=== PATIENT | male | born 1965 | race Caucasian/White ===

== ENCOUNTER 2020-01-05 18:07 | Emergency (ER) | payer OTHER, SELFPAY ==
--- NOTE | ~2020-01-05 | CT_ITS ---
EXAMINATION: CT abdomen pelvis w con INDICATION: Abdominal pain TECHNIQUE: Computed tomographic images of the abdomen and pelvis were obtained after the administrati on of 100 cc of Omnipaque 350 intravenous contrast. The dose-length product (DLP) was 455.61 mGy-cm. Automated exposure control and iterative reconstruction technique were employed. COMPARISON: 06/13/2018 FINDINGS: Minimal dependent atelectasis is present in the lung bases. The heart size is normal. The l iver is diffusely low in attenuation when compared with the spleen, consistent with hepatic steatosis . The spleen, pancreas, gallbladder, and adrenal glands are normal. The kidneys are unremarkable. No pathologically enlarged abdominal or pelvic lymph nodes are identified. There is calcified atheroscle rosis of the aorta and many of the other arteries. There is no free intraperitoneal gas or evidence o f bowel obstruction. Colonic diverticulosis is present without evidence of diverticulitis. Neurostimu lator devices are implanted in the posterior subcutaneous tissues of the left flank in the anterior a bdominal wall on the right. There are changes of posterior fusion procedure from L3 through L5. IMPRESSION: 1. Diverticulosis without evidence of diverticulitis. Reviewed, dictated and finalized at location A. NG TEACHER
[2020-01-05 18:35] VITALS: BP 106/64; PULSE 88; RESP 16; TEMP 36.5; O2SAT 98
[2020-01-05 18:53] VITALS: BP 106/64; PULSE 88; RESP 18; TEMP 36.5; O2SAT 98
[2020-01-05 19:02] LABS: Basophils Absolute Auto 0.1 K/mm3 (0.0-0.1); Basophils Percent Auto 0.8 % (0.2-1.2); Eosinophils Absolute Auto 0.1 K/mm3 (0-0.3); Eosinophils Percent Auto 1.5 % (0-4.4); Hematocrit 46.9 % (42.0-52.0); Hemoglobin 16.3 g/dL (14.0-18.0); Immature Granulocyte Absolute 0.02 K/mm3 (0.00-0.031); Immature Granulocyte Percent A 0.3 % (0-0.5); Lymphocytes Absolute Auto 4.26 K/mm3 (0.9-3.2); Lymphocytes Percent Auto 57.3 % (18.3-44.2); Mean Corpuscular HGB Conc 34.8 g/dl (32-36); Mean Corpuscular Hemoglobin 37.5 pg (26-34); Mean Corpuscular Volume 107.8 fl (80-100); Mean Platelet Volume 10.9 fl (7.4-10.4); Monocytes Absolute Auto 0.9 K/mm3 (0.1-0.6); Monocytes Percent Auto 11.7 % (2.6-8.5); Neutrophils Absolute Auto 2.1 K/mm3 (1.3-6.7); Neutrophils Percent Auto 28.4 % (45.5-73.1); Platelet Count Result 205 k/mm3 (150-375); Red Blood Count 4.35 M/mm3 (4.6-6.20); White Blood Count 7.4 K/mm3 (4.5-10.0)
[2020-01-05 19:15] LABS: Alanine Aminotransferase 37 U/L (4-50); Albumin Level 3.9 g/dL (3.5-5.1); Alkaline Phosphatase 119 U/L (38-126); Aspartate Amino Transferase 122 U/L (17-59); Bilirubin,Total 0.6 mg/dL (0.2-1.3); Blood Urea Nitrogen 7 mg/dL (9-20); Calcium 8.4 mg/dL (8.4-10.2); Carbon Dioxide 32 mmol/L (22-30); Chloride 94 mmol/L (98-107); Estimated CRCL calculation 99 ml/min; Estimated Glomerular Filt Rate > 60; Glucose 108 mg/dL (75-110); Lipase 153 U/L (23-300); Sodium 140 mmol/L (137-145)
[2020-01-05] MEDS: SODIUM CHLORIDE 0.9% IV 1,000 ML 999 ML IV CONT (19:23)
[2020-01-05] MEDS: FAMOTIDINE 20 MG/2 ML VIAL IV PUSH (19:23)
--- NOTE | 2020-01-05 19:29 | ED.ABDPAIN ---
HPI - Abdominal Pain General Chief Complaint: Abdominal Pain Stated Complaint: Abd pain x 1 month Time Seen by Provider: 01/05/20 18:55 Source: patient Mode of arrival: ambulatory Limitations: no limitations History of Present Illness HPI narrative: Patient is a 54-year-old male who presents to emergency department for evaluation of left lower abdominal pain that is been present for over a month off and on noting aching pain that worsens with eating also notes he has had some loose stools does note history of diverticulitis and alcohol abuse patient denies any rectal bleeding or melena for fever chills nausea vomiting patient has not taken anything for his symptoms nor has he been seen for this complaint and on arrival to emergency department is resting comfortably in the room in no distress. Related Data Home Medications Medication Instructions Recorded Confirmed trazodone 01/05/20 Allergies Allergy/AdvReac Type Severity Reaction Status Date / Time bupropion Allergy Severe HIVES Verified 01/05/20 18:38 Review of Systems Review of Systems: All systems reviewed & are unremarkable except as noted in HPI and below PMFSH Past Medical History Medical History (Updated 01/05/20 @ 20:35 by Richard Welch PA-C) Peptic ulcer disease Family History Family History (Updated 04/30/18 @ 11:22 by DOCTOR UNKNOWN) Mother Patient's mother is in good health Father Family history of malignant neoplasm of esophagus Patient's father is Family history of malignant neoplasm Other Cerebrovascular accident Family history of alcoholism Hypertension Social History Social History Smoking status: Heavy tobacco smoker Alcohol intake: current Gender identity (if verbalized by the patient): Male Exam Narrative: Exam Narrative: GENERAL: Well-appearing, well-nourished, and in no acute distress. HEAD: Normocephalic, atraumatic. EYES: PERRLA and EOMI. ENT: Nares clear, no rhinorrhea or epistaxis. Mucous membranes moist. Oropharynx without tonsillar hypertrophy exudate or other lesions. CHEST: Clear to auscultation. No respiratory distress. No wheezes rales or rhonchi HEART: Regular rate and rhythm. No murmur heard. Normal peripheral pulses. ABDOMEN: Soft, left lower quadrant tenderness to palpation with voluntary guarding, nondistended EXTREMITIES: Normal range of motion. No edema. SKIN: Warm, dry, no rash. NEURO: No focal deficits. Alert and oriented x3. Cranial nerves II through XII grossly intact PSYCH: Normal mood and affect. Course Course Emergency Course: Patient in the room in no distress aware of case findings treatment plan and diagnosis Vital Signs Vital signs: Vital Signs Temperature 97.7 F 01/05/20 18:35 Pulse Rate 88 01/05/20 18:35 Respiratory Rate 16 01/05/20 18:35 Blood Pressure 106/64 01/05/20 18:35 Pulse Oximetry 98 01/05/20 18:35 Temperature 97.7 F 01/05/20 18:53 Pulse Rate 88 01/05/20 18:53 Respiratory Rate 18 01/05/20 18:53 Blood Pressure 106/64 01/05/20 18:53 Pulse Oximetry 98 01/05/20 18:53 MDM - Abdominal Pain MDM Narrative Medical decision making narrative: Patient in the room in no distress with unknown etiology for his left lower abdominal pain will be advised to follow with primary care and gastroenterology for further discussion and evaluation of his discomfort and provided with reasons to return. No high risk changes in the blood work or imaging patient was hydrated in the emergency department Lab Data Result diagrams: 01/05/20 18:47 01/05/20 18:47 Labs: Lab Results 01/05/20 01/05/20 01/05/20 Range/Units 18:47 18:47 19:44 WBC 7.4 (4.5-10.0) K/mm3 RBC 4.35 L (4.6-6.20) M/mm3 Hgb 16.3 (14.0-18.0) g/dL Hct 46.9 (42.0-52.0) % MCV 107.8 H (80-100) fl MCH 37.5 H (26-34) pg MCHC 34.8 (32-36) g/dl RDW
[2020-01-05 19:52] LABS: Add Urine Microscopic? NO; Appearance Urine Clear (Clear); Bilirubin Urine Negative (Negative); Blood Urine Negative (Negative); Color Urine Yellow (Yellow); Glucose Urine UA Negative (Negative); Ketones Urine Negative (Negative); Leukocyte Esterase Ur Negative LEU/UL (Negative); Nitrate Urine Negative (Negative); Protein Urine Negative (Negative); Specific Grav Ur 1.009 (1.001-1.035); Urobilinogen Urine Negative mg/dL (<2.0)
[2020-01-05 21:12] VITALS: BP 130/74; PULSE 75; RESP 18; O2SAT 98
== END 2020-01-05 21:14 | disposition home or self-care (01) ==
PROVIDERS: Emergency Medicine; Emergency Provider Emergency Medicine; PCP Internal Medicine
DX: R10.32 Left lower quadrant pain (principal); Z87.11 Personal history of peptic ulcer disease
CPT/HCPCS: 36415; 74177; 80053; 81003; 83690; 85025; 96374; 99284; J7030; Q9967

== ENCOUNTER 2020-01-20 00:42 | Day surgery (SDC) | payer OTHER, SELFPAY ==
[2020-01-15 13:50] VITALS: BMI 21.4
[2020-01-20 10:04] VITALS: BP 132/92; PULSE 112; RESP 16; TEMP 36.1; O2SAT 98; BMI 21.3
--- NOTE | 2020-01-20 10:09 | WPDANESEPPF ---
Anes - Initial Pre Proc Eval Procedure: Operation Date: 01/20/20 11:00 Proposed Procedures p Screening Colonoscopy - Catrachito Yap MD Date/Time: 01/20/20 10:09 Surgeon: Catrachito Yap MD Pre Op Diagnosis: Neoplasm Srceening Patient Data Age: 54 Gender: M Height: 6 ft 3 in Weight: 78 kg Allergies Allergy/AdvReac Type Severity Reaction Status Date / Time bupropion Allergy Severe HIVES Verified 01/20/20 10:02 Home Medications Medication Instructions Recorded Confirmed Type trazodone 100 mg PO PRN PRN 01/05/20 01/15/20 History food supplemt, lactose-reduced 1 each PO .QD ml 01/07/20 01/15/20 History 0.05 gram-1.5 kcal/mL oral liquid acetaminophen [Tylenol] 650 mg PO PRN PRN 01/15/20 01/15/20 History pantoprazole 40 mg PO QAM 01/15/20 01/15/20 History Patient hx anesthesia problems: none Family hx anesthesia problems: none PMFSH Past Medical History Medical History Alcoholism Cervical radiculopathy GERD (gastroesophageal reflux disease) HTN (hypertension) Insomnia Peptic ulcer disease Spinal cord stimulator status Surgical History Surgical History History of lumbar fusion Family History Family History Mother Patient's mother is in good health Father Family history of malignant neoplasm of esophagus Patient's father is Family history of malignant neoplasm Other Cerebrovascular accident Family history of alcoholism Hypertension Social History Social History Smoking packs per day: 2 Smoking cigarettes per day: 40.0 Smoking status: Heavy tobacco smoker Alcohol intake: current Gender identity (if verbalized by the patient): Male Anes - Eval Final PreProcedure Day of Procedure 01/20/20 10:09 Patient weight: normal Heart: regular rate and rhythm Lungs: clear to auscultation Airway: Mallampati scale class II Neurological: alert and oriented Last oral intake: >/= 8 hours ASA classification: IV Emergent: no Anesthetic plan: proceed Anesthesia type and monitoring: general GIVS and standard monitoring Informed Consent: The patient's anesthetic plan and its attendant risks and benefits were discussed with the patient/family/POA. Questions were solicited and answers provided to the satisfaction of the patient/family/POA.
--- NOTE | 2020-01-20 10:19 | PM.HPGS ---
History of Present Illness History of Present Illness Consent: Risks, benefits, and alternatives have been discussed and questions answered. Patient agrees to proceed with procedure. Chief complaint: Neoplasm Srceening Narrative: Tyrone Weston is a 54 year old W male referred for his 1st screening colonoscopy. In addition to this the patient has had left lower quadrant abdominal pain for least 6 weeks. He was seen in emergency room any static CT scan was normal except for diverticulosis and there is not evidence of diverticulitis. However he states he has had diverticulitis in the past and the pain seems similar to this. No fever chills or sweats. He has had some intermittent loose stools without blood. No family history of colitis colon polyps or colon cancer. He has had no weight loss. Patient has had lumbar back surgery L3-L4 L5. He has a pain stimulator in the right lower quadrant was nonfunctioning now. He also has a stimulator present. The patient chronic smoker most likely has underlying COPD chronic alcohol use least 6-10 beers per day. I recommend he discontinue both of these. [facility] Past Medical History Medical History Alcoholism Cervical radiculopathy GERD (gastroesophageal reflux disease) HTN (hypertension) Insomnia Peptic ulcer disease Spinal cord stimulator status Surgical History Surgical History History of lumbar fusion Family History Family History Mother Patient's mother is in good health Father Family history of malignant neoplasm of esophagus Patient's father is Family history of malignant neoplasm Other Cerebrovascular accident Family history of alcoholism Hypertension Social History Social History Smoking packs per day: 2 Smoking cigarettes per day: 40.0 Smoking status: Heavy tobacco smoker Alcohol intake: current Gender identity (if verbalized by the patient): Male Meds Home Medications and Allergies Home Medications Medication Instructions Recorded Confirmed Type trazodone 100 mg PO PRN PRN 01/05/20 01/15/20 History food supplemt, lactose-reduced 1 each PO .QD ml 01/07/20 01/15/20 History 0.05 gram-1.5 kcal/mL oral liquid acetaminophen [Tylenol] 650 mg PO PRN PRN 01/15/20 01/15/20 History pantoprazole 40 mg PO QAM 01/15/20 01/15/20 History Allergies Allergy/AdvReac Type Severity Reaction Status Date / Time bupropion Allergy Severe HIVES Verified 01/20/20 10:02 Vital Signs Vital Signs - 24 hr 01/20/20 10:04 Temperature 36.1 C L Pulse Rate 112 H Respiratory Rate 16 Blood Pressure 132/92 H Pulse Oximetry 98 Exam Const: Orientation/consciousness: patient oriented x3 Resp: Auscultation: clear to auscultation bilaterally Cardio: Rate: regular rate Rhythm: regular rhythm Heart sounds: no murmurs GI: GI Palp: Yes Soft to palpation, No Tenderness to palpation present (GI), Yes No hepatosplenomegaly present and No Palpable mass present Auscultation: normal bowel sounds Neuro: General: patient oriented x3 and no focal motor deficits Extrem: General: no pedal edema Assessment and Plan Additional Plan screening colonoscopy in addition to this change in bowel pattern and left lower quadrant abdominal pain
[2020-01-20] MEDS: LACTATED RINGERS 1,000 ML 150 ML IV CONT (10:25)
[2020-01-20 10:52] VITALS: BP 130/85; PULSE 92; RESP 13; O2SAT 98
[2020-01-20 11:02] VITALS: BP 127/82; PULSE 88; RESP 16; O2SAT 98
[2020-01-20 11:12] VITALS: BP 145/92; PULSE 84; RESP 18; O2SAT 99
== END 2020-01-20 11:20 | disposition home or self-care (01) ==
PROVIDERS: PCP Internal Medicine; Visit Provider Internal Medicine Gastroenterology
PROC: 0DJD8ZZ Inspection of Lower Intestinal Tract, Via Natural or Artificial Opening Endoscopic (ICD-10-PCS; CPT 45378; principal; 2020-01-20 11:00)
DX: Z12.11 Encounter for screening for malignant neoplasm of colon (principal); K57.32 Diverticulitis of large intestine without perforation or abscess without bleeding; K64.8 Other hemorrhoids; R19.4 Change in bowel habit; I10 Essential (primary) hypertension; K21.9 Gastro-esophageal reflux disease without esophagitis; F10.20 Alcohol dependence, uncomplicated; M54.12 Radiculopathy, cervical region; K27.9 Peptic ulcer, site unspecified, unspecified as acute or chronic, without hemorrhage or perforation; G47.00 Insomnia, unspecified; Z98.1 Arthrodesis status; F17.210 Nicotine dependence, cigarettes, uncomplicated
CPT/HCPCS: 45378; J2704; J7120

== ENCOUNTER 2020-04-12 12:17 | Outpatient (CLI) | payer OTHER, SELFPAY ==
--- NOTE | ~2020-04-12 | CT_ITS ---
EXAMINATION: CT abdomen pelvis w con DATE: 04/12/2020 13:01 INDICATION: Abdominal pain TECHNIQUE: Computed tomography (CT) of the abdomen and pelvis was performed with 100 cc Omnipaque 350 intravenous contrast. Automated exposure control and iterative reconstruction technique were employe d. Exam dose: 445.96 mGy-cm total exam DLP. COMPARISON: 01/05/2020 CT abdomen pelvis FINDINGS: The lung bases are clear of infiltrate or consolidation. There is minimal atelectasis at th e lung bases. Normal heart size. No pericardial or pleural effusion. There is hepatic steatosis. There appears to be some surface nodularity of liver; consider cirrhosis. No hepatic space-occupying mass lesion is detected. The gallbladder is present; no gallbladder wall thickening or abnormal pericholecystic fluid or stranding. No bile duct dilatation. No pancreatic mas s lesion, calcification or ductal dilatation. No splenomegaly. Normal morphology of the adrenal glands. No renal mass lesion. No urinary tract calculus or hydrouret eronephrosis. There is atherosclerotic calcification of the abdominal aorta and iliac arteries and femoral arteries but no abdominal aortic or iliac artery aneurysm. No intraperitoneal or retroperitoneal or pelvic mass lesion or adenopathy or ascites. The prostate gland, seminal vesicles and urinary bladder are unremarkable. There are numerous diverticula of the left colon, particularly the sigmoid area. There is no CT evide nce of diverticulitis. There is some fatty infiltration of the wall of the colon. No bowel obstructio n, pneumatosis or intraperitoneal free air. Status post posterior spinal fusion at L3-L5. Generator device of the anterolateral right abdominal wall with lead extending into the thoracic spin al canal IMPRESSION: Hepatic steatosis, possible cirrhosis Diverticulosis of the colon; no CT evidence of diverticulitis Reviewed, dictated and finalized at Location [facility]. Reviewed, dictated and finalized at location A.
[2020-04-12 13:22] LABS: Basophils Absolute Auto 0.1 K/mm3 (0.0-0.1); Basophils Percent Auto 0.6 % (0.2-1.2); Eosinophils Percent Auto 0.5 % (0-4.4); Hematocrit 40.2 % (42.0-52.0); Hemoglobin 14.5 g/dL (14.0-18.0); Immature Granulocyte Absolute 0.01 K/mm3 (0.00-0.031); Immature Granulocyte Percent A 0.1 % (0-0.5); Lymphocytes Absolute Auto 2.91 K/mm3 (0.9-3.2); Lymphocytes Percent Auto 33.7 % (18.3-44.2); Mean Corpuscular HGB Conc 36.1 g/dl (32-36); Mean Corpuscular Hemoglobin 38.2 pg (26-34); Mean Corpuscular Volume 105.8 fl (80-100); Monocytes Percent Auto 11.9 % (2.6-8.5); Neutrophils Absolute Auto 4.6 K/mm3 (1.3-6.7); Neutrophils Percent Auto 53.2 % (45.5-73.1); Platelet Count Result 216 k/mm3 (150-375); Red Cell Distribution Width 14.8 % (11.5-14.5); White Blood Count 8.6 K/mm3 (4.5-10.0)
[2020-04-12 13:58] LABS: Alanine Aminotransferase 19 U/L (4-50); Albumin Level 3.3 g/dL (3.5-5.1); Alkaline Phosphatase 113 U/L (38-126); Amylase 83 U/L (30-110); Aspartate Amino Transferase 102 U/L (17-59); Bilirubin,Total 0.8 mg/dL (0.2-1.3); Blood Urea Nitrogen 6 mg/dL (9-20); Calcium 7.7 mg/dL (8.4-10.2); Carbon Dioxide 30 mmol/L (22-30); Chloride 90 mmol/L (98-107); Estimated Glomerular Filt Rate > 60; Glucose 105 mg/dL (75-110); Lipase 138 U/L (23-300); Potassium 2.5 mmol/L (3.4-5.0); Sodium 132 mmol/L (137-145)
== END 2020-04-12 12:18 | disposition home or self-care (01) ==
PROVIDERS: PCP Internal Medicine; Visit Provider Nurse Practitioner
DX: R10.9 Unspecified abdominal pain (principal); K76.0 Fatty (change of) liver, not elsewhere classified; K57.30 Diverticulosis of large intestine without perforation or abscess without bleeding
CPT/HCPCS: 36415; 74177; 80053; 82150; 83690; 85025; Q9967

== ENCOUNTER 2020-04-12 14:36 | Observation (INO) | payer OTHER, SELFPAY ==
[2020-04-12] VITALS (7 sets, daily range): BP systolic 98–122; BP diastolic 66–87; PULSE 79–96; RESP 14–20; TEMP 36.6–37.1; O2SAT 94–98; BMI 22.4
--- NOTE | 2020-04-12 14:47 | ED.ABDPAIN ---
HPI - Abdominal Pain General Chief Complaint: Abdominal Pain Stated Complaint: abd pain Time Seen by Provider: 04/12/20 14:43 Source: patient Mode of arrival: ambulatory Limitations: no limitations History of Present Illness HPI narrative: Patient is a 55-year-old with a history of alcohol abuse who was seen in his primary care physician's office today for evaluation of left lower quadrant abdominal pain. Pain has been intermittent, worsening over the past several days, worse in the left lower quadrant, no associated nausea or vomiting. No diarrhea or constipation. Patient reports some mild abdominal distention. Patient reportedly with low potassium on outpatient stat labs, and was sent to this facility for evaluation. Patient states that he feels well currently besides some mild abdominal pain. He states he has not been vomiting. He states he has a history of low potassium. No weakness, denies palpitations or chest pain. Patient states that he typically drinks at least 12 beers daily. Related Data Home Medications Medication Instructions Recorded Confirmed trazodone 100 mg PO PRN PRN 01/05/20 04/12/20 food supplemt, lactose-reduced 1 each PO .QD ml 01/07/20 04/12/20 0.05 gram-1.5 kcal/mL oral liquid acetaminophen [Tylenol] 650 mg PO PRN PRN 01/15/20 04/12/20 pantoprazole 40 mg PO QAM 01/15/20 04/12/20 Allergies Allergy/AdvReac Type Severity Reaction Status Date / Time bupropion Allergy Severe HIVES Verified 01/20/20 10:02 Review of Systems Review of Systems: Narrative: CONSTITUTIONAL: Denies fever, chills, or sweats. CARDIOVASCULAR: Denies chest pain, palpitations, or edema. RESPIRATORY: Denies cough or dyspnea. GASTROINTESTINAL: Reports left lower quadrant abdominal pain, denies nausea, vomiting or diarrhea GENITOURINARY: Denies dysuria or hematuria. SKIN: Denies rash or itching. MUSCULOSKELETAL: Denies back pain, joint pain, or myalgia. NEUROLOGIC: Denies headache, numbness, or weakness. [facility] Past Medical History Medical History Alcoholism Cervical radiculopathy GERD (gastroesophageal reflux disease) HTN (hypertension) Insomnia Peptic ulcer disease Spinal cord stimulator status Surgical History Surgical History History of lumbar fusion Family History Family History Mother Patient's mother is in good health Father Family history of malignant neoplasm of esophagus Patient's father is Family history of malignant neoplasm Other Cerebrovascular accident Family history of alcoholism Hypertension Social History Social History Smoking packs per day: 2 Smoking cigarettes per day: 40.0 Smoking status: Heavy tobacco smoker Alcohol intake: current Gender identity (if verbalized by the patient): Male Exam Narrative: Exam Narrative: GENERAL: Awake, alert, conversant HEAD: Normocephalic, atraumatic. EYES: PERRLA and EOMI. ENT: Nares clear, no rhinorrhea or epistaxis. Mucous membranes moist. NECK: Supple. CHEST: No respiratory distress, breathing even and non labored HEART: Regular rate, sinus rhythm ABDOMEN: Mild distention, mild tenderness in the left lower quadrant without guarding or rebound, pain pump present in right lower quadrant, nontender, intact surgical scar EXTREMITIES: Normal range of motion. No edema. SKIN: Slightly pale, dry, no rash NEURO:No focal deficits. Alert and oriented x3 Course Vital Signs Vital signs: Vital Signs Temperature 36.6 C 04/12/20 14:45 Pulse Rate 90 04/12/20 14:45 Respiratory Rate 16 04/12/20 14:45 Blood Pressure 103/87 04/12/20 14:45 Pulse Oximetry 97 04/12/20 14:45 Temperature 36.6 C 04/12/20 14:45 Pulse Rate 90 04/12/20 14:45 Respiratory Rate 16 04/12/20 14:45 Blood Pressure
[2020-04-12 15:01] LABS: Basophils Absolute Auto 0.1 K/mm3 (0.0-0.1); Basophils Percent Auto 0.7 % (0.2-1.2); Eosinophils Absolute Auto 0.1 K/mm3 (0-0.3); Eosinophils Percent Auto 0.6 % (0-4.4); Hematocrit 42.7 % (42.0-52.0); Hemoglobin 15.4 g/dL (14.0-18.0); Immature Granulocyte Absolute 0.04 K/mm3 (0.00-0.031); Immature Granulocyte Percent A 0.4 % (0-0.5); Lymphocytes Absolute Auto 3.89 K/mm3 (0.9-3.2); Lymphocytes Percent Auto 40.4 % (18.3-44.2); Mean Corpuscular HGB Conc 36.1 g/dl (32-36); Mean Corpuscular Hemoglobin 38.6 pg (26-34); Mean Platelet Volume 10.4 fl (7.4-10.4); Monocytes Percent Auto 10.8 % (2.6-8.5); Neutrophils Absolute Auto 4.5 K/mm3 (1.3-6.7); Neutrophils Percent Auto 47.1 % (45.5-73.1); Platelet Count Result 221 k/mm3 (150-375); Red Blood Count 3.99 M/mm3 (4.6-6.20); Red Cell Distribution Width 14.8 % (11.5-14.5); White Blood Count 9.6 K/mm3 (4.5-10.0)
[2020-04-12 15:15] LABS: Alanine Aminotransferase 21 U/L (4-50); Albumin Level 3.6 g/dL (3.5-5.1); Alkaline Phosphatase 133 U/L (38-126); Aspartate Amino Transferase 108 U/L (17-59); Bilirubin,Total 0.9 mg/dL (0.2-1.3); Blood Urea Nitrogen 6 mg/dL (9-20); Calcium 7.7 mg/dL (8.4-10.2); Carbon Dioxide 29 mmol/L (22-30); Chloride 90 mmol/L (98-107); Estimated CRCL calculation 100 ml/min; Estimated Glomerular Filt Rate > 60; Glucose 170 mg/dL (75-110); Lipase 163 U/L (23-300); Potassium 2.6 mmol/L (3.4-5.0); Sodium 134 mmol/L (137-145)
[2020-04-12] MEDS: THIAMINE HCL 100 MG TABLET PO (15:30)
[2020-04-12] MEDS: POTASSIUM CHLORIDE 20 MEQ PACKET (FOR LIQUID) 40 MEQ PO (15:31)
[2020-04-12] MEDS: MORPHINE SULFATE 4 MG/ML INJ IV PUSH (15:44)
--- NOTE | 2020-04-12 18:00 | ADMGEN ---
This patient, Tyrone Weston, was admitted to Medical Room 254-01. Patient/family oriented to hospital policies and general routines including ID bracelet, bed and alarms, visiting hours, pain management, procedures, bathroom and other care routines, personal items, smoking policy, room service/diet, and visiting hours. Valuables list has been completed. Information on how to activate the Rapid Response Team has been discussed. Patient/Family are encouraged to report perceived risks to care and to ask questions if they do not understand what they are told or what they should do.
--- NOTE | 2020-04-12 19:05 | PM.IMHP ---
H&P: HPI History of Present Illness Chief complaint: Low-potassium and abdominal pain. Narrative: Tyrone Weston is a 55-year-old male with history of GERD, duodenal ulcers, diverticulitis, chronic back pain, and alcohol abuse who presented to the emergency department earlier this afternoon at the direction of his primary care provider for further evaluation of low potassium and abdominal pain. He had a routine appointment with his primary care provider today, and on examination of his abdomen he grimaced. With further questioning, he admits having chronic abdominal discomfort that seems to have been worse over the past 1 months time. He has a difficult time describing this, but states that his abdomen feels bloated a lot and in fact he has had a poor appetite because of that. He frequently has nausea and his symptoms seem worse when eating. He was sent for stat labs and a CT of the abdomen and pelvis. CT scan did show hepatic steatosis and findings of possible cirrhosis. He had multiple electrolyte abnormalities on his metabolic panel, and was directed to the emergency department for admission. At the time my evaluation he is picking at his dinner, tells me it just does not sound good. He takes pantoprazole daily but tells me he rarely has symptoms of indigestion. He has not had hematemesis and he denies melena and hematochezia. Weight has remained stable. He has not had fever, chills, or sweats. Also of note, he is a daily drinker and tells me that he will have mild tremors and agitation not long after waking each morning. He has no history of alcohol withdrawal seizures or DTs. Review of Systems Review of Systems: Narrative: Twelve systems were reviewed with pertinent positives and negatives as per HPI. No fever, chills, or sweats. He denies recent cold and flu symptoms. No recent travel or sick contacts. He denies cough and shortness of breath. No acholic stools or steatorrhea. No change in urine output. He denies muscle cramps. Except as documented, all other systems were reviewed and are negative. [facility] Past Medical History Medical History (Updated 04/12/20 @ 22:05 by Erin Falcon PA-C) Alcohol abuse Cervical radiculopathy Chronic back pain Pain pump in the right lower quadrant which is nonfunctioning. Patient has a spinal cord stimulator as well. Diverticulitis (~01/2018) GERD (gastroesophageal reflux disease) Hepatic steatosis Insomnia Peptic ulcer disease (~01/2018) Duodenal ulcers noted on EGD per Dr. Maldonado. Peripheral neuropathy Spinal cord stimulator status Tobacco dependence Surgical History Surgical History (Updated 04/12/20 @ 21:58 by Erin Falcon PA-C) History of appendectomy History of lumbar discectomy (~1995) L4-L5. History of lumbar fusion (~2009) L3-L5. History of vasectomy Family History Family History Mother Patient's mother is in good health Father Family history of malignant neoplasm of esophagus Patient's father is Family history of malignant neoplasm Other Cerebrovascular accident Family history of alcoholism Hypertension Social History Social History (Updated 04/12/20 @ 22:00 by Erin Falcon PA-C) Social History: The patient lives in [place] with his . Their children are grown. 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 He smokes 1 to 2 packs of cigarettes per day and has for many years. He drinks up to 12 beers a day in addition to several shots a day. He has been drinking in this amount for the past 10 years or so. He denies illicit drug use. He designates his , Livia, as his surrogate decision maker and he wishes to be a full code. Smoking packs per day: 2 Smoking cigarettes per day: 40.0 Smoking status: Heavy tobacco smoker Alcohol intake: current Drinks per week: 84 Substance use: current Substance use type:
[2020-04-12 21:03] LABS: INR 1.2; Prothrombin Time 14.4 Seconds (11.1-14.7)
[2020-04-12 21:04] LABS: Partial Thromboplastin Time 26.5 SECONDS (22.3-36.8)
[2020-04-12 21:05] LABS: Blood Urea Nitrogen 5 mg/dL (9-20); Calcium 7.4 mg/dL (8.4-10.2); Carbon Dioxide 33 mmol/L (22-30); Chloride 94 mmol/L (98-107); Estimated CRCL calculation 90 ml/min; Estimated Glomerular Filt Rate > 60; Glucose 113 mg/dL (75-110); Magnesium 1.5 mg/dL (1.6-2.3); Phosphorus 2.9 mg/dL (2.5-4.5); Potassium 3.2 mmol/L (3.4-5.0); Sodium 134 mmol/L (137-145)
[2020-04-12] MEDS: CHLORDIAZEPOXIDE 25 MG CAPSULE PO (21:09)
[2020-04-12] MEDS: MAGNESIUM SULF 2 GM/WATER 50ML 2 GM/50 ML BAG IVPB (23:01)
[2020-04-12] MEDS: SODIUM CHLORIDE 0.9% IV 1,000 ML 80 ML IV CONT (23:01)
[2020-04-12 23:58] LABS: Add Urine Microscopic? YES; Appearance Urine Clear (Clear); Bacteria Urine Trace /hpf; Bilirubin Urine Negative (Negative); Blood Urine Negative (Negative); Color Urine Yellow (Yellow); Glucose Urine UA Negative (Negative); Ketones Urine Negative (Negative); Leukocyte Esterase Ur Negative LEU/UL (Negative); Nitrate Urine Negative (Negative); Protein Urine Negative (Negative); RBC Urine 0-2 /hpf (0-2)
[2020-04-12 23:59] LABS: Specific Grav Ur 1.059 (1.001-1.035)
[2020-04-13] VITALS (15 sets, daily range): BP systolic 106–150; BP diastolic 64–96; PULSE 64–92; RESP 15–26; TEMP 36–37.3; O2SAT 96–100; BMI 22.5
[2020-04-13] MEDS: CHLORDIAZEPOXIDE 25 MG CAPSULE PO ×2 (04:33→21:08)
[2020-04-13 05:35] LABS: Basophils Absolute Auto 0.1 K/mm3 (0.0-0.1); Basophils Percent Auto 0.9 % (0.2-1.2); Eosinophils Absolute Auto 0.1 K/mm3 (0-0.3); Eosinophils Percent Auto 1.9 % (0-4.4); Hematocrit 37.3 % (42.0-52.0); Hemoglobin 13.4 g/dL (14.0-18.0); Immature Granulocyte Absolute 0.01 K/mm3 (0.00-0.031); Immature Granulocyte Percent A 0.2 % (0-0.5); Lymphocytes Absolute Auto 1.92 K/mm3 (0.9-3.2); Lymphocytes Percent Auto 36.4 % (18.3-44.2); Mean Corpuscular HGB Conc 35.9 g/dl (32-36); Mean Corpuscular Volume 105.7 fl (80-100); Mean Platelet Volume 10.6 fl (7.4-10.4); Monocytes Absolute Auto 0.6 K/mm3 (0.1-0.6); Monocytes Percent Auto 11.9 % (2.6-8.5); Neutrophils Absolute Auto 2.6 K/mm3 (1.3-6.7); Neutrophils Percent Auto 48.7 % (45.5-73.1); Platelet Count Result 177 k/mm3 (150-375); Red Blood Count 3.53 M/mm3 (4.6-6.20); Red Cell Distribution Width 14.6 % (11.5-14.5); White Blood Count 5.3 K/mm3 (4.5-10.0)
[2020-04-13 05:36] LABS: INR 1.1; Prothrombin Time 14.3 Seconds (11.1-14.7)
[2020-04-13 05:37] LABS: Partial Thromboplastin Time 27.5 SECONDS (22.3-36.8)
[2020-04-13 05:49] LABS: Alanine Aminotransferase 16 U/L (4-50); Albumin Level 2.9 g/dL (3.5-5.1); Alkaline Phosphatase 118 U/L (38-126); Aspartate Amino Transferase 75 U/L (17-59); Bilirubin,Total 1.5 mg/dL (0.2-1.3); Blood Urea Nitrogen 5 mg/dL (9-20); Calcium 7.3 mg/dL (8.4-10.2); Carbon Dioxide 33 mmol/L (22-30); Chloride 95 mmol/L (98-107); Estimated CRCL calculation 117 ml/min; Estimated Glomerular Filt Rate > 60; Glucose 102 mg/dL (75-110); Magnesium 1.8 mg/dL (1.6-2.3); Phosphorus 3.4 mg/dL (2.5-4.5); Potassium 3.1 mmol/L (3.4-5.0); Sodium 133 mmol/L (137-145)
[2020-04-13 06:53] LABS: Folic Acid 5.7 ng/mL (2.76->20)
--- NOTE | 2020-04-13 08:37 | WPDGICN ---
Assessment and Plan Assessment and plan (1) Abdominal pain: Code(s): R10.9 - Unspecified abdominal pain Status: Acute Assessment and Plan: scheduled for an EGD to be done this morning. (2) Alcohol abuse: Code(s): F10.10 - Alcohol abuse, uncomplicated Status: Acute Assessment and Plan: We discussed chronic liver disease. His liver enzymes are somewhat elevated. We need to watch for possible withdrawal syndrome. GI Consult Note Consult date/time: 04/13/20 08:37 HPI: Tyrone Weston is a 55 year old male Was admitted with abdominal pain. States that the pain is somewhat chronic but became much more intense over the last few days. He is primarily epigastric area and fairly continuous. He has had some drop in appetite lately but no significant weight loss. He denies vomiting. He has attributed his pain to the fact that he was found to have ulcers 2 years ago. He has been taking pantoprazole since then fairly regularly. He admits to drinking heavily, usually 12 beers a day as well as some hard liquor. He denies using NSAIDs. He has never been told that he had liver disease but after the CT scan yesterday showed possible early cirrhosis somewhat did inform him of that diagnosis. He occasionally gets shaking morning until he has something drink but has never been hospitalized with alcohol-related complications. he had a normal screening colonoscopy a few months ago except for some diverticulosis PMFSH Past Medical History Medical History Alcohol abuse Cervical radiculopathy Chronic back pain Pain pump in the right lower quadrant which is nonfunctioning. Patient has a spinal cord stimulator as well. Diverticulitis (~01/2018) GERD (gastroesophageal reflux disease) Hepatic steatosis Insomnia Peptic ulcer disease (~01/2018) Duodenal ulcers noted on EGD per Dr. Maldonado. Peripheral neuropathy Spinal cord stimulator status Tobacco dependence Surgical History Surgical History History of appendectomy History of lumbar discectomy (~1995) L4-L5. History of lumbar fusion (~2009) L3-L5. History of vasectomy Family History Family History Mother Patient's mother is in good health Father Family history of malignant neoplasm of esophagus Patient's father is Family history of malignant neoplasm Other Cerebrovascular accident Family history of alcoholism Hypertension Social History Social History Social History: The patient lives in [place] with his . Their children are grown. 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 He smokes 1 to 2 packs of cigarettes per day and has for many years. He drinks up to 12 beers a day in addition to several shots a day. He has been drinking in this amount for the past 10 years or so. He denies illicit drug use. He designates his , Livia, as his surrogate decision maker and he wishes to be a full code. Smoking packs per day: 2 Smoking cigarettes per day: 40.0 Smoking status: Heavy tobacco smoker Alcohol intake: current Drinks per week: 84 Substance use: current Substance use type: marijuana Gender identity (if verbalized by the patient): Male Spiritual care concerns: No Meds Home Medications and Allergies Home Medications Medication Instructions Recorded Confirmed Type food supplemt, lactose-reduced 1 each PO DAILY ml 01/07/20 04/12/20 History 0.05 gram-1.5 kcal/mL oral liquid pantoprazole 40 mg PO QAM 01/15/20 04/12/20 History Allergies Allergy/AdvReac Type Severity Reaction Status Date / Time bupropion Allergy Severe HIVES Verified 01/20/20 10:02 Vital Signs Vital Signs - 24 hr 04/12/20 14:45 04/12/20 15:30 04/12/20
--- NOTE | 2020-04-13 09:27 | WPDANESEPPF ---
Anes - Initial Pre Proc Eval Procedure: Operation Date: 04/13/20 10:00 Proposed Procedures p Esophagogastroduodenoscopy - Valente Dewey MD Date/Time: 04/13/20 09:27 Surgeon: Cash Pablo PA-C Pre Op Diagnosis: Low-potassium and abdominal pain. Patient Data Age: 55 Gender: M Height: 6 ft 3 in Weight: 81.9 kg Last Vital Signs Temp 98.2 F 04/13/20 09:12 Pulse 73 04/13/20 09:12 Resp 16 04/13/20 09:12 BP 150/88 H 04/13/20 09:12 Pulse Ox 97 04/13/20 09:12 Allergies Allergy/AdvReac Type Severity Reaction Status Date / Time bupropion Allergy Severe HIVES Verified 04/13/20 09:10 Home Medications Medication Instructions Recorded Confirmed Type food supplemt, lactose-reduced 1 each PO DAILY ml 01/07/20 04/12/20 History 0.05 gram-1.5 kcal/mL oral liquid pantoprazole 40 mg PO QAM 01/15/20 04/12/20 History Laboratory Tests 04/12/20 04/12/20 04/12/20 14:55 14:55 20:39 WBC 9.6 K/mm3 K/mm3 (4.5-10.0) RBC 3.99 M/mm3 L M/mm3 (4.6-6.20) Hgb 15.4 g/dL g/dL (14.0-18.0) Hct 42.7 % % (42.0-52.0) MCV 107.0 fl H fl (80-100) MCH 38.6 pg H pg (26-34) MCHC 36.1 g/dl H g/dl (32-36) RDW 14.8 % H % (11.5-14.5) Plt Count 221 k/mm3 k/mm3 (150-375) MPV 10.4 fl fl (7.4-10.4) Immature Gran % (Auto) 0.4 % % (0-0.5) Neut % (Auto) 47.1 % % (45.5-73.1) Lymph % (Auto) 40.4 % % (18.3-44.2) Turner % (Auto) 10.8 % H % (2.6-8.5) Eos % (Auto) 0.6 % % (0-4.4) Baso % (Auto) 0.7 % % (0.2-1.2) Lymph # (Auto) 3.89 K/mm3 H K/mm3 (0.9-3.2) Turner # (Auto) 1.0 K/mm3 H K/mm3 (0.1-0.6) Eos # (Auto) 0.1 K/mm3 K/mm3 (0-0.3) Baso # (Auto) 0.1 K/mm3 K/mm3 (0.0-0.1) Abs Immat Gran (auto) 0.04 K/mm3 H K/mm3 (0.00-0.031) Absolute Neuts (auto) 4.5 K/mm3 K/mm3 (1.3-6.7) Absolute Nucleated RBC 0.0 K/mm3 K/mm3 (0.0-0.012) Nucleated RBC % 0.0 % % (0.0-0.2) PT 14.4 Seconds Seconds (11.1-14.7) INR 1.2 APTT 26.5 SECONDS SECONDS (22.3-36.8) Sodium 134 mmol/L L mmol/L (137-145) Potassium 2.6 mmol/L L* mmol/L (3.4-5.0) Chloride 90 mmol/L L mmol/L (98-107) Carbon Dioxide 29 mmol/L mmol/L (22-30) BUN 6 mg/dL L mg/dL (9-20) Creatinine 0.80 mg/dL mg/dL (0.7-1.3) Estim Creat Clear Calc 100 ml/min ml/min Estimated GFR > 60 (59 - ) Glucose 170 mg/dL H mg/dL (75-110) Calcium 7.7 mg/dL L mg/dL (8.4-10.2) Phosphorus Magnesium Total Bilirubin 0.9 mg/dL mg/dL (0.2-1.3) AST 108 U/L H U/L (17-59) ALT 21 U/L U/L (4-50) Alkaline Phosphatase 133 U/L H U/L (38-126) Total Protein 8.0 g/dL g/dL (6.3-8.2) Albumin 3.6 g/dL g/dL (3.5-5.1) Lipase 163 U/L U/L (23-300) Vitamin B12 Folate TSH (Reflex) Free T4 Urine Color Urine Appearance Urine pH Ur Specific Oark Urine Protein Urine Glucose (UA) Urine Ketones Ur Blood (Man) Urine Nitrate Urine Bilirubin Urine Urobilinogen Leukocyte Esterase Rfl Urine RBC Urine Bacteria 04/12/20 04/12/20 04/13/20 20:39 23:41 05:09 WBC 5.3 K/mm3 K/mm3 (4.5-10.0) RBC 3.53 M/mm3 L M/mm3 (4.6-6.20) Hgb 13.4 g/dL L g/dL (14.0-18.0) Hct 37.3 % L % (42.0-52.0) MCV 105.7 fl H fl (80-100) MCH 38.0 pg H pg (26-34) MCHC 35.9 g/dl g/dl (32-36) RDW 14.6 % H % (11.5-14.5) Plt Count 1
[2020-04-13] MEDS: LACTATED RINGERS 1,000 ML 150 ML IV CONT (09:29)
[2020-04-13] MEDS: THERAPEUTIC MULTIVITAMINS/MINERALS TAB (*BKC) 1 TABLET PO (10:19)
[2020-04-13] MEDS: THIAMINE HCL 100 MG TABLET PO (10:20)
[2020-04-13] MEDS: PANTOPRAZOLE 40 MG TABLET PO (10:20)
[2020-04-13] MEDS: FOLIC ACID 1 MG TABLET PO (10:20)
[2020-04-13] MEDS: SODIUM CHLORIDE 0.9% IV 1,000 ML 80 ML IV CONT (10:23)
[2020-04-13 11:51] LABS: Free T4 Free Thyroxine Reflex 1.61 ng/dL (0.78-2.19)
[2020-04-13 12:59] LABS: Total Triiodothyronine (T3) 1.06 NG/ML (0.97-1.69)
--- NOTE | 2020-04-13 13:39 | PM.IMPN ---
Progress Note: A&P Assessment and Plan (1) Acute hypokalemia: Code(s): E87.6 - Hypokalemia Status: Acute Assessment and Plan: K 3.1 this morning; still low. Mag and phos WNL. K replaced again this morning. No cp/palpitations Potassium will be replaced and monitored. d/c telemetry; consider resuming if developing chest pain (2) Abdominal pain: Code(s): R10.9 - Unspecified abdominal pain Status: Acute Assessment and Plan: This has been an ongoing problem for the patient and he notes vague symptoms. His left abdominal pain has improved some today. He had an EGD per Dr. Dewey today revealing signs of gastritis GI following and appreciate recommendations Continue Protonix. Await further recommendations from GI (3) Alcohol abuse: Code(s): F10.10 - Alcohol abuse, uncomplicated Status: Acute Assessment and Plan: Again, had a lengthy discussion regarding the need to quit drinking today; he is assessing different resources including detox facilities in the area that accept his insurance and are taking patient amid this coronavirus pandemic. Cirrhosis and liver disease discussed with patient again today. Continue CIWA protocol as well as folic acid, thiamine, and vitamin supplementation. Will schedule Librium Q12 hr and have Ativan available as needed for withdrawal symptoms. Monitor overnight Consider discharge in 1-2 days if no signs of withdrawal and electrolytes back to normal and okay from GI standpoint (4) GERD (gastroesophageal reflux disease): Code(s): K21.9 - Gastro-esophageal reflux disease without esophagitis Status: Acute Assessment and Plan: Continue Protonix as above. (5) Tobacco dependence: Code(s): F17.200 - Nicotine dependence, unspecified, uncomplicated Status: Acute Assessment and Plan: Nicotine patch available. Subjective Date/time seen: 04/13/20 13:39 Interval history: PAtient is a 55 yo M with history of GERD, duodenal ulcers, diverticulitis, chronic back pain, and alcohol abuse who is here for treatment of acute hypokalemia and evaluation of abdominal pain. Patient is feeling somewhat better at the moment. He had an EGD performed this morning per Dr. Dewey with findings of gastritis. He states his pain is more on his left abdomen and sharp in nature, but improving. He denies any signs of withdrawal at the moment but does state he usually cannot sleep at night when he refrains from drinking. He has no other complaints at the moment. Denies f/c/s, tremors, myalgias/arthralgias, headaches, dizziness, lightheadedness, cp/palpitations, sob/cough, n/v/d/c, changes in BMs, dysuria, hematuria, cloudy urine, calf pain/swelling. Review of Systems Review of Systems: All systems reviewed & are unremarkable except as noted in HPI and below Exam Narrative: Exam Narrative: Patient lying comfortably in semi-ramírez's position in bed Const: General: cooperative, comfortable, no acute distress, well developed, alert, awake and Physically active Orientation/consciousness: patient oriented x3 HENMT: Head: normocephalic and atraumatic General nose exam: Normal nares present Face and sinus: face symmetric Mouth: Yes moist mucous membranes Eyes: General: appearance normal, both eyes and all related structures EOM: EOMs intact bilaterally Neck: Neck: trachea midline and supple Resp: Effort & Inspection: normal respiratory effort Auscultation: clear to auscultation bilaterally Cardio: Rate: regular rate Rhythm: regular rhythm Heart sounds: no murmurs GI: Inspection: non-distended and other (pain pump noted) GI Palp: Yes abdominal tenderness (left sided, mild) and Y
[2020-04-13] MEDS: MELATONIN 3 MG TABLET PO (21:08)
[2020-04-14] MEDS: SODIUM CHLORIDE 0.9% IV 1,000 ML 80 ML IV CONT (00:48)
[2020-04-14 02:00] VITALS: BP 126/77; PULSE 70; RESP 18; TEMP 36.7; O2SAT 96
[2020-04-14 05:55] VITALS: BP 133/85; PULSE 74; RESP 18; TEMP 36.9; O2SAT 97
[2020-04-14 06:22] LABS: Alanine Aminotransferase 15 U/L (4-50); Albumin Level 2.6 g/dL (3.5-5.1); Alkaline Phosphatase 107 U/L (38-126); Aspartate Amino Transferase 64 U/L (17-59); Bilirubin,Total 1.6 mg/dL (0.2-1.3); Blood Urea Nitrogen 5 mg/dL (9-20); Calcium 7.5 mg/dL (8.4-10.2); Carbon Dioxide 34 mmol/L (22-30); Chloride 99 mmol/L (98-107); Estimated CRCL calculation 121 ml/min; Estimated Glomerular Filt Rate > 60; Glucose 97 mg/dL (75-110); Magnesium 1.4 mg/dL (1.6-2.3); Phosphorus 3.5 mg/dL (2.5-4.5); Potassium 3.1 mmol/L (3.4-5.0); Sodium 134 mmol/L (137-145)
--- NOTE | 2020-04-14 07:18 | WPDGIPROGNO ---
Progress Note: A&P Additional Plan 1. Abdominal pain this appears to be improving on a combination of alcoholic gastritis and hepatomegaly 2. chronic alcohol abuse with possible early cirrhosis REC: 1. DC alcohol 2. Continue anti-reflux measures and acid inhibitory therapy 3. discontinue smoking 4. okay to discharge patient from a GI standpoint and can follow up in the office as needed Time Spent With Patient Time with patient: 15 - 25 minutes Subjective Date/time seen: 04/14/20 07:18 for patient states that his abdominal pain is improved. He still has some mild left lower quadrant abdominal discomfort. No nausea or vomiting. He is tolerating diet. I discussed the gastroscopy results with the patient. I also strongly encouraged him to stop alcohol and smoking. He states he has stopped drinking in the past those had a recurrence. Exam Narrative: Exam Narrative: Lungs are clear to auscultation and percussion cardiovascular exam reveals a regular rhythm without murmur. Abdominal exam; slightly distended. Bowel sounds are present a normal active liver slightly enlarged approximately 12 cm in the right midclavicular line. Some mild left lower quadrant tenderness no guarding or rebound tenderness for evidence of ascites. Extremities without edema Objective Data Vital Signs Vital Signs: Vital Signs - 24 hr 04/13/20 08:00 04/13/20 09:12 04/13/20 09:27 Temperature 36.8 C 36.8 C Pulse Rate 67 73 68 Respiratory Rate 15 16 18 Blood Pressure 121/70 150/88 H 138/87 Pulse Oximetry 99 97 100 04/13/20 09:41 04/13/20 09:51 04/13/20 10:01 Temperature Pulse Rate 84 78 67 Respiratory Rate 20 26 H 15 Blood Pressure 106/64 119/65 121/70 Pulse Oximetry 97 99 99 04/13/20 12:00 04/13/20 14:00 04/13/20 16:00 Temperature 37.3 C Pulse Rate 92 73 77 Respiratory Rate 18 Blood Pressure 121/70 122/74 121/70 Pulse Oximetry 99 04/13/20 18:00 04/13/20 20:00 04/13/20 22:04 Temperature 36.8 C 36.0 C L Pulse Rate 89 76 64 Respiratory Rate 20 20 Blood Pressure 142/96 H 132/75 Pulse Oximetry 99 98 04/13/20 22:08 04/14/20 02:00 04/14/20 05:55 Temperature 36.0 C L 36.7 C 36.9 C Pulse Rate 64 70 74 Respiratory Rate 20 18 18 Blood Pressure 132/75 126/77 133/85 Pulse Oximetry 98 96 97 Intake/Output Intake/Output: Intake & Output 04/11/20 04/12/20 04/13/20 04/14/20 23:59 23:59 23:59 23:59 Intake Total 1500 3510 120 Output Total 750 300 Balance 1500 2760 -180 Meds/Results Medications: Active Medications Generic Name Dose Route Start Last Admin Trade Name Freq PRN Reason Stop Dose Admin Chlordiazepoxide HCl 25 mg 04/13/20 21:00 04/13/20 21:08 Librium Po PO 25 mg Q12HR SCOTT Administration Folic Acid 1 mg 04/13/20 09:00 04/13/20 10:20 Folic Acid PO 1 mg DAILY SCOTT Administration Sodium Chloride 1,000 mls @ 80 mls/hr 04/12/20 22:15 04/14/20 00:48 Normal Saline Iv IV CONT 80 mls/hr .[id number] SCOTT Administration Magnesium Sulfate 2 gm in 50 mls @ 50 mls/hr 04/14/20 07:14 Magnesium Sulf 2 Gm/Water 50ml IVPB 04/14/20 08:13 ONCE ONE Lidocaine HCl 0.3 ml 04/13/20 09:27 Xylocaine 2% Local Inj INTRADERM ONCE PRN to numb area Lorazepam 1 mg 04/12/20 22:06 Ativan Inj IV PUSH Q1H PRN Alcohol withdrawal CIWA > 7 Melatonin 3 mg 04/13/20 21:00 04/13/20 21:08 Melatonin PO 3 mg HS SCOTT Administration Multivitamins/Calcium 1 tablet 04/13/20 09:00 04/13/20 10:19 Therapeutic Multivitamins/Minerals PO 1 tablet QAM SCOTT Administration Nicotine 1 patch 04/12/20 22:10 04/13/20 10:20 Nicoderm Cq 21 Mg TRANSDERM Not Given QAM SCOTT Pantoprazole Sodium 40 mg 04/13/20 09:00 04/13/20 10:20 Protonix PO 40 mg QAM SCOTT Administration Potassium Chloride 60 meq 04/14/20 07:13 Kcl Tablet PO 04/14/20 07:14 ONCE ONE Thiamine HCl 100 mg 04/13/20 09:00 04/13/20 10:20 Vit
[2020-04-14 08:00] VITALS: BP 133/85; PULSE 74; RESP 18; O2SAT 97
--- NOTE | 2020-04-14 08:44 | PM.DS ---
DS: Admitting Diagnosis Admitting Diagnosis Admitting Diagnosis: Hypokalemia DS: Discharge Diagnosis Discharge Diagnosis (1) Acute hypokalemia: Code(s): E87.6 - Hypokalemia Status: Acute Assessment and Plan: K 3.1 this morning; still low but stable. Mag 1.4 and replaced today. Phos WNL. K replaced again this morning. No cp/palpitations Will send home with daily supplementation for 1 week Will do BMP on 04/18 F/u with his PCP; will attempt to notify the office of this plan (2) Abdominal pain: Code(s): R10.9 - Unspecified abdominal pain Status: Acute Assessment and Plan: This has been an ongoing problem for the patient and he notes vague symptoms. His left abdominal pain has improved some today. He had an EGD per Dr. Dewey during stay revealing signs of gastritis GI following and appreciate recommendations; okay for discharge from GI standpoint Continue Protonix. f/u with GI as needed (3) Alcohol abuse: Code(s): F10.10 - Alcohol abuse, uncomplicated Status: Acute Assessment and Plan: Lengthy discussion during stay regarding the need to quit drinking today; he is assessing different resources including detox facilities in the area that accept his insurance and are taking patient amid this coronavirus pandemic. Cirrhosis and liver disease discussed with patient again today. CIWA relatively low during stay folic acid, thiamine, and vitamin supplementation during stay discharge today F/u with PCP (4) GERD (gastroesophageal reflux disease): Code(s): K21.9 - Gastro-esophageal reflux disease without esophagitis Status: Acute Assessment and Plan: Continue Protonix as above. (5) Tobacco dependence: Code(s): F17.200 - Nicotine dependence, unspecified, uncomplicated Status: Acute Assessment and Plan: Nicotine patch available. DS: Summary Hospital Course Reason for hospitalization: Hypokalemia; abdominal pain with CT findings of possible cirrhosis Hospital Course: Patient is a 55 yo M with history of GERD, duodenal ulcers, diverticulitis, chronic back pain, and alcohol abuse who presented to the emergency department on 04/12 at the direction of his primary care provider for further evaluation of low potassium and abdominal pain. While in the ER, patient was found to have significant hypokalemia. Prior to presentation to ER, outpatient CT abd/pelvis had findings of hepatic steatosis and findings of possible cirrhosis. Patient was admitted under this setting. Please see H&P for further details. Presenting VS: Temp Pulse Resp BP Pulse Ox 98 F 90 16 103/87 97 04/12/20 14:45 04/12/20 14:45 04/12/20 14:45 04/12/20 14:45 04/12/20 14:45 Presenting Pertinent labs: K 2.5 (04/14: 3.1), Na 132, AST 102. CBC, coags, chemistry, and UA otherwise unremarkable Micro: none Imaging: CT abd/pelvis outpatient CT IMPRESSION: Hepatic steatosis, possible cirrhosis Diverticulosis of the colon; no CT evidence of diverticulitis ECG: none Patient was admitted to the hospitalist service for further evaluation for abdominal pain and treatment for hypokalemia; Dr. Yap (GI) was consulted for further input. Patient's potassium was monitored and replaced; this improved to 3.1 by day of discharge and patient was sent home with potassium supplementation and instructed to follow up with his PCP and obtain CMP for further monitoring. Patient also underwent EGD per Dr. Dewey on 04/13 which revealed findings of gastritis. Patient instructed to follow up with PCP and continue PPI. Alcohol cessation was strongly encouraged and also instructed to obtain further resources from his PCP outside of those
[2020-04-14] MEDS: MAGNESIUM SULF 2 GM/WATER 50ML 2 GM/50 ML BAG IVPB (08:57)
[2020-04-14] MEDS: THIAMINE HCL 100 MG TABLET PO (09:02)
[2020-04-14] MEDS: POTASSIUM CHLORIDE 20 MEQ TABLET 60 MEQ PO (09:02)
[2020-04-14] MEDS: FOLIC ACID 1 MG TABLET PO (09:02)
[2020-04-14] MEDS: THERAPEUTIC MULTIVITAMINS/MINERALS TAB (*BKC) 1 TABLET PO (09:02)
[2020-04-14] MEDS: PANTOPRAZOLE 40 MG TABLET PO (09:02)
[2020-04-14 09:32] VITALS: BP 133/80; PULSE 66; RESP 16; TEMP 36.4; O2SAT 99
[2020-04-14 12:00] VITALS: BP 133/80
== END 2020-04-14 12:07 | disposition home or self-care (01) ==
LOC: ANHED 15:41 → ANH2MED 21:49
PROVIDERS: Internal Medicine Gastroenterology; Physician Assistant; Admitting Provider Hospitalist; Emergency Provider Emergency Medicine; PCP Internal Medicine; Visit Provider Physician Assistant
PROC: 0DJ08ZZ Inspection of Upper Intestinal Tract, Via Natural or Artificial Opening Endoscopic (ICD-10-PCS; CPT 43235; principal; 2020-04-13 10:00)
DX: K29.20 Alcoholic gastritis without bleeding (principal); R16.0 Hepatomegaly, not elsewhere classified; E87.6 Hypokalemia; K21.9 Gastro-esophageal reflux disease without esophagitis; K76.0 Fatty (change of) liver, not elsewhere classified; F10.10 Alcohol abuse, uncomplicated; F17.210 Nicotine dependence, cigarettes, uncomplicated; I10 Essential (primary) hypertension; G62.9 Polyneuropathy, unspecified; M54.9 Dorsalgia, unspecified; G89.29 Other chronic pain; G47.00 Insomnia, unspecified; Z87.11 Personal history of peptic ulcer disease; Z96.82 Presence of neurostimulator; Z98.1 Arthrodesis status
CPT/HCPCS: 43239; 36415; 80048; 80053; 80069; 80076; 81001; 82607; 82746; 83690; 83735; 84100; 84439; 84443; 84480; 85025; 85610; 85730; 87081; 96361; 96365; 96366; 96367; 96368; 96374; 96375; 99285; A9270; G0378; J2270; J2704; J3411; J3475; J3480; J7030; J7120; J7121

== ENCOUNTER 2020-05-02 08:55 | Outpatient (CLI) | payer OTHER, SELFPAY ==
[2020-05-02 09:31] LABS: Basophils Percent Auto 0.4 % (0.2-1.2); Eosinophils Percent Auto 0.4 % (0-4.4); Hematocrit 42.9 % (42.0-52.0); Hemoglobin 15.3 g/dL (14.0-18.0); Immature Granulocyte Absolute 0.01 K/mm3 (0.00-0.031); Immature Granulocyte Percent A 0.1 % (0-0.5); Lymphocytes Absolute Auto 1.58 K/mm3 (0.9-3.2); Mean Corpuscular HGB Conc 35.7 g/dl (32-36); Mean Corpuscular Hemoglobin 38.8 pg (26-34); Mean Corpuscular Volume 108.9 fl (80-100); Mean Platelet Volume 11.2 fl (7.4-10.4); Monocytes Absolute Auto 0.7 K/mm3 (0.1-0.6); Monocytes Percent Auto 9.6 % (2.6-8.5); Neutrophils Absolute Auto 4.6 K/mm3 (1.3-6.7); Neutrophils Percent Auto 66.5 % (45.5-73.1); Platelet Count Result 166 k/mm3 (150-375); Red Blood Count 3.94 M/mm3 (4.6-6.20); Red Cell Distribution Width 14.8 % (11.5-14.5); White Blood Count 6.9 K/mm3 (4.5-10.0)
[2020-05-02 09:44] LABS: Alanine Aminotransferase 23 U/L (4-50); Albumin Level 3.6 g/dL (3.5-5.1); Alkaline Phosphatase 185 U/L (38-126); Aspartate Amino Transferase 123 U/L (17-59); Bilirubin,Total 1.7 mg/dL (0.2-1.3); Blood Urea Nitrogen 8 mg/dL (9-20); Calcium 8.2 mg/dL (8.4-10.2); Carbon Dioxide 27 mmol/L (22-30); Chloride 97 mmol/L (98-107); Estimated Glomerular Filt Rate > 60; Glucose 197 mg/dL (75-110); Potassium 3.3 mmol/L (3.4-5.0); Sodium 132 mmol/L (137-145)
[2020-05-02 09:46] LABS: Magnesium 1.1 mg/dL (1.6-2.3)
== END 2020-05-02 08:56 | disposition home or self-care (01) ==
LOC: ANHLAB 08:57
PROVIDERS: Clinical Nurse Specialist; PCP Internal Medicine; Visit Provider Nurse Practitioner
DX: R79.0 Abnormal level of blood mineral (principal); E87.6 Hypokalemia; K29.70 Gastritis, unspecified, without bleeding
CPT/HCPCS: 36415; 80053; 83735; 85025

== ENCOUNTER 2020-05-16 07:20 | Outpatient (CLI) | payer OTHER, SELFPAY ==
[2020-05-16 07:57] LABS: Blood Urea Nitrogen 11 mg/dL (9-20); Calcium 8.5 mg/dL (8.4-10.2); Carbon Dioxide 33 mmol/L (22-30); Chloride 101 mmol/L (98-107); Estimated Glomerular Filt Rate > 60; Glucose 154 mg/dL (75-110); Magnesium 1.5 mg/dL (1.6-2.3); Potassium 3.2 mmol/L (3.4-5.0); Sodium 141 mmol/L (137-145)
== END 2020-05-16 07:21 | disposition home or self-care (01) ==
PROVIDERS: PCP Internal Medicine; Visit Provider Nurse Practitioner
DX: E87.6 Hypokalemia (principal); E83.42 Hypomagnesemia
CPT/HCPCS: 36415; 80048; 83735

== ENCOUNTER 2020-09-04 23:04 | Observation (INO) | payer OTHER, SELFPAY ==
--- NOTE | ~2020-09-04 | US_ITS ---
EXAMINATION: US right upper quadrant DATE: 09/05/2020 07:52 INDICATION: Right upper quadrant abdominal pain. TECHNIQUE: Multiple grayscale and Doppler ultrasound images of the abdomen were obtained. COMPARISON: CT abdomen and pelvis 09/05/2020 FINDINGS: The visualized portions of the head, body, and tail of the pancreas are normal. The liver d emonstrates steatosis and surface nodularity, consistent with cirrhosis. The gallbladder is normal in size. Gallbladder wall thickening is noted. No gallstones or sonographic Chu sign. IMPRESSION: 1. Cirrhosis of the liver. 2. Gallbladder wall thickening, likely secondary to chronic liver disease. Reviewed, dictated and finalized at location A.
--- NOTE | ~2020-09-04 | XR_ITS ---
EXAMINATION: XR chest 2V DATE: 09/05/2020 01:20 INDICATION: Shortness of breath. TECHNIQUE: Frontal and lateral views of the chest were obtained. COMPARISON: Chest 2 views 01/25/2018, CT abdomen and pelvis 09/05/2020 FINDINGS: There is mild atelectasis in left lower lung zone. No pleural effusion or pneumothorax. The heart size is normal. There are epidural electrodes in thoracic spine. A catheter overlies the centr al spinal canal. IMPRESSION: 1. Mild atelectasis in left lower lung zone. Reviewed, dictated and finalized at location A.
--- NOTE | ~2020-09-04 | CT_ITS ---
EXAMINATION: CT abdomen pelvis w con DATE: 09/05/2020 01:14 INDICATION: Abdominal pain. Nausea. TECHNIQUE: Computed tomography (CT) of the abdomen and pelvis was performed with 100 mL Omnipaque 350 intravenous contrast. Automated exposure control and iterative reconstruction technique were employe d. The dose-length product was 558.67 mGy-cm. COMPARISON: CT abdomen and pelvis 04/12/2020 FINDINGS: The visualized portions of the lung bases demonstrate mild atelectasis. No pleural effusion . The heart size is normal. There are coronary artery calcifications. No pericardial effusion. The li shabnam demonstrates diffusely heterogeneous attenuation and surface nodularity, consistent with cirrhosi s. The spleen, gallbladder, pancreas, adrenal glands, and kidneys are normal. There are no dilated lo ops of bowel. There is diverticulosis of the colon without evidence of diverticulitis. There is mild wall thickening of some areas of small and large bowel, likely interstitial edema from portal venous hypertension. The appendix is not visualized. There is a small volume of ascites. The prostate is mil dly enlarged. Paraesophageal varices are noted. There are periumbilical varices. There are no patholo gically enlarged lymph nodes. There are surgical clips from meniscectomies. There are changes of post erior fusion procedure from L3 to L5. Epidural electrodes are noted. There is an intrathecal catheter . IMPRESSION: 1. Worsened cirrhosis of the liver with portal venous hypertension. 2. Small volume of ascites. Reviewed, dictated and finalized at location A.
[2020-09-04 23:10] VITALS: BP 142/78; PULSE 95; RESP 18; TEMP 36.5; O2SAT 100
--- NOTE | 2020-09-04 23:20 | ED.GENADULT ---
HPI - General Adult General Chief complaint: Unspecified Stated complaint: multiple complaints Time Seen by Provider: 09/04/20 23:19 History of Present Illness HPI narrative: 55 yo w/ h/o alcohol abuse presents from home with multiple complaints. He reports that he has had chronic fatigue. This has been worse recently and for the past few days he frequently feels like he is going to pass out. He reports that he has very poor PO intake due to nausea and early satiety. Over the past few days he has noted that his abdomen has begun t become distended. He also has epigastric pain. Feels similar to when he had an ulcer in the past. He also reports SOB, and pain in his chest when he takes a deep breath. He smokes 1 ppd. He is a daily drinker. He is reluctant to discuss the amount. His says that he hides bottles around the house. Related Data Home Medications Medication Instructions Recorded Confirmed food supplemt, lactose-reduced 1 each PO DAILY ml 01/07/20 04/21/20 0.05 gram-1.5 kcal/mL oral liquid pantoprazole 40 mg PO QAM 01/15/20 04/21/20 Allergies Allergy/AdvReac Type Severity Reaction Status Date / Time bupropion Allergy Severe HIVES Verified 04/13/20 09:10 Review of Systems Review of Systems: All systems reviewed & are unremarkable except as noted in HPI and below Constitutional: Constitutional: Reports anorexia, Reports fatigue and Denies fever(s) ENT: Reports dizziness Cardiovascular: Cardiovascular: Reports dyspnea Respiratory: Respiratory: Reports pain with cough and Reports dyspnea Gastrointestinal: Gastrointestinal: Reports abdominal pain, Denies melena, Denies hematochezia, Reports change in bowel habits and Reports nausea Genitourinary: Comments: Dark pungent urine Neurologic: Reports weakness Hematologic/Lymphatic: Hematologic/Lymphatic: Denies easy bleeding PMFSH Past Medical History Medical History (Updated 09/05/20 @ 02:47 by Xander Lorenzo MD) Alcohol abuse Cervical radiculopathy Chronic back pain Pain pump in the right lower quadrant which is nonfunctioning. Patient has a spinal cord stimulator as well. Diverticulitis (~01/2018) GERD (gastroesophageal reflux disease) Hepatic steatosis Insomnia Peptic ulcer disease (~01/2018) Duodenal ulcers noted on EGD per Dr. Maldonado. Peripheral neuropathy Spinal cord stimulator status Tobacco dependence Surgical History Surgical History History of appendectomy History of lumbar discectomy (~1995) L4-L5. History of lumbar fusion (~2009) L3-L5. History of vasectomy Family History Family History Mother Patient's mother is in good health Father Family history of malignant neoplasm of esophagus Patient's father is Family history of malignant neoplasm Other Cerebrovascular accident Family history of alcoholism Hypertension Social History Social History Social History: The patient lives in [place] with his . Their children are grown. 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 He smokes 1 to 2 packs of cigarettes per day and has for many years. He drinks up to 12 beers a day in addition to several shots a day. He has been drinking in this amount for the past 10 years or so. He denies illicit drug use. He designates his , Livia, as his surrogate decision maker and he wishes to be a full code. Smoking packs per day: 2 Smoking cigarettes per day: 40.0 Smoking status: Heavy tobacco smoker Alcohol intake: current Drinks per week: 84 Substance use: current Substance use type: marijuana Gender identity (if verbalized by the patient): Male Spiritual care concerns: No Exam Const: General: cooperative and ill appearing; No acute distress Nutritional Appearance: thin Or
[2020-09-04] MEDS: SODIUM CHLORIDE 0.9% IV 1,000 ML 999 ML IV CONT (23:46)
[2020-09-04 23:54] LABS: Basophils Percent Auto 0.3 % (0.2-1.2); Eosinophils Absolute Auto 0.1 K/mm3 (0-0.3); Hematocrit 38.3 % (42.0-52.0); Hemoglobin 14.2 g/dL (14.0-18.0); Immature Granulocyte Absolute 0.04 K/mm3 (0.00-0.031); Immature Granulocyte Percent A 0.4 % (0-0.5); Lymphocytes Absolute Auto 3.09 K/mm3 (0.9-3.2); Lymphocytes Percent Auto 29.6 % (18.3-44.2); Mean Corpuscular HGB Conc 37.1 g/dl (32-36); Mean Corpuscular Hemoglobin 39.1 pg (26-34); Mean Corpuscular Volume 105.5 fl (80-100); Mean Platelet Volume 10.9 fl (7.4-10.4); Monocytes Absolute Auto 1.2 K/mm3 (0.1-0.6); Monocytes Percent Auto 11.2 % (2.6-8.5); Neutrophils Percent Auto 57.5 % (45.5-73.1); Nucleated Red Blood Cells Perc 0.3 % (0.0-0.2); Platelet Count Result 284 k/mm3 (150-375); Red Blood Count 3.63 M/mm3 (4.6-6.20); Red Cell Distribution Width 14.3 % (11.5-14.5); White Blood Count 10.5 K/mm3 (4.5-10.0)
[2020-09-05] VITALS (15 sets, daily range): BP systolic 110–130; BP diastolic 54–82; PULSE 87–105; RESP 16–20; TEMP 36.5–37.6; O2SAT 95–98; BMI 20.5
[2020-09-05 00:37] LABS: INR 1.3; Prothrombin Time 15.8 Seconds (11.1-14.7)
[2020-09-05 00:38] LABS: Partial Thromboplastin Time 29.2 SECONDS (22.3-36.8)
[2020-09-05 00:42] LABS: Alanine Aminotransferase 30 U/L (4-50); Albumin Level 2.7 g/dL (3.5-5.1); Alkaline Phosphatase 151 U/L (38-126); Anion Gap 12 mmol/L (8-16); Aspartate Amino Transferase 134 U/L (17-59); Bilirubin,Total 1.6 mg/dL (0.2-1.3); Blood Urea Nitrogen 11 mg/dL (9-20); Calcium 7.7 mg/dL (8.4-10.2); Carbon Dioxide 38 mmol/L (22-30); Chloride 82 mmol/L (98-107); Estimated Glomerular Filt Rate > 60; Glucose 126 mg/dL (75-110); Lipase 149 U/L (23-300); Potassium 2.7 mmol/L (3.4-5.0); Sodium 132 mmol/L (137-145)
[2020-09-05 01:38] LABS: Add Urine Microscopic? YES; Appearance Urine Clear (Clear); Bacteria Urine Trace /hpf; Bilirubin Urine 1+ (Negative); Blood Urine Negative (Negative); Color Urine Amber (Yellow); Glucose Urine UA Negative (Negative); Hyaline Casts Urine 50+ /lpf; Ketones Urine Negative (Negative); Leukocyte Esterase Ur Negative LEU/UL (Negative); Mucus Urine Few /lpf; Nitrate Urine Negative (Negative); Protein Urine Negative (Negative); RBC Urine 0-2 /hpf (0-2); Specific Grav Ur 1.013 (1.001-1.035); WBC Urine 0-3 /hpf
--- NOTE | 2020-09-05 02:58 | PM.IMHP ---
H&P: HPI History of Present Illness Date/Time: 09/05/20 02:58 Chief complaint: abdominal pain Narrative: This is a 55-year-old male with history of GERD, duodenal ulcers, diverticulitis, chronic back pain, and alcohol abuse who presented to the emergency department today with a complaint of ongoing epigastric abdominal pain, generalized weakness, poor p.o. intake of food and fluid, as well as nausea. He also complains of abdominal distension. The patient was last admitted to our hospitalist service a couple months ago when he underwent EGD and evaluation for his chronic abdominal pain and it was thought to be due to alcoholic gastritis as well as hepatomegaly and early cirrhosis. The patient at that time was advised that he should quit drinking alcohol. Tonight the patient confirms that he continues to drink heavily every day and does continue to smoke about a pack of cigarettes daily. His is very concerned as it seems that he is sometimes goes a day or 2 without eating any food. He has a morphine pump that no longer works for chronic back pain. The patient does have an appointment to see a liver specialist coming up in early September. The patient verbalized that he wishes to quit drinking alcohol. The patient was evaluated emergency room this evening and CT abd/pelvis demonstrated mild ascites and congestive changes of the liver. Gallbladder wall was mildly thickened. Routine labs were overall unremarkable. ER provider has asked that we admit the patient to the hospital for further care. The patient has no other complaints. Review of Systems Review of Systems: All systems reviewed & are unremarkable except as noted in HPI and below PMFSH Past Medical History Medical History (Updated 09/05/20 @ 05:24 by Edd Boateng MD) Alcohol abuse Cervical radiculopathy Chronic back pain Pain pump in the right lower quadrant which is nonfunctioning. Patient has a spinal cord stimulator as well. Diverticulitis (~01/2018) GERD (gastroesophageal reflux disease) Hepatic steatosis Insomnia Peptic ulcer disease (~01/2018) Duodenal ulcers noted on EGD per Dr. Maldonado. Peripheral neuropathy Spinal cord stimulator status Tobacco dependence Surgical History Surgical History History of appendectomy History of lumbar discectomy (~1995) L4-L5. History of lumbar fusion (~2009) L3-L5. History of vasectomy Family History Family History Mother Patient's mother is in good health Father Family history of malignant neoplasm of esophagus Patient's father is Family history of malignant neoplasm Other Cerebrovascular accident Family history of alcoholism Hypertension Social History Social History Social History: The patient lives in [place] with his . Their children are grown. 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 He smokes 1 to 2 packs of cigarettes per day and has for many years. He drinks up to 12 beers a day in addition to several shots a day. He has been drinking in this amount for the past 10 years or so. He denies illicit drug use. He designates his , Livia, as his surrogate decision maker and he wishes to be a full code. Smoking packs per day: 2 Smoking cigarettes per day: 40.0 Smoking status: Heavy tobacco smoker Alcohol intake: current Drinks per week: 84 Substance use: current Substance use type: marijuana Gender identity (if verbalized by the patient): Male Spiritual care concerns: No Meds Home Medications and Allergies Home Medications Medication Instructions Recorded Confirmed Type pantoprazole 40 mg PO QAM 01/15/20 04/21/20 History Allergies Allergy/AdvReac Type Severity Reaction Status Date / Time bupropion Allergy Severe HIVES Verified
--- NOTE | 2020-09-05 03:00 | ADMGEN ---
This patient, Tyrone Weston, was admitted to 3 Med Surg Room 304-01. Patient/family oriented to hospital policies and general routines including ID bracelet, bed and alarms, visiting hours, pain management, procedures, bathroom and other care routines, personal items, smoking policy, room service/diet, and visiting hours. Valuables list has been completed. Information on how to activate the Rapid Response Team has been discussed. Patient/Family are encouraged to report perceived risks to care and to ask questions if they do not understand what they are told or what they should do.
[2020-09-05 06:10] LABS: Basophils Absolute Auto 0.1 K/mm3 (0.0-0.1); Basophils Percent Auto 0.6 % (0.2-1.2); Eosinophils Absolute Auto 0.1 K/mm3 (0-0.3); Eosinophils Percent Auto 1.3 % (0-4.4); Hematocrit 31.9 % (42.0-52.0); Hemoglobin 11.9 g/dL (14.0-18.0); Immature Granulocyte Absolute 0.02 K/mm3 (0.00-0.031); Immature Granulocyte Percent A 0.2 % (0-0.5); Lymphocytes Absolute Auto 2.78 K/mm3 (0.9-3.2); Lymphocytes Percent Auto 32.6 % (18.3-44.2); Mean Corpuscular HGB Conc 37.3 g/dl (32-36); Mean Corpuscular Hemoglobin 39.1 pg (26-34); Mean Corpuscular Volume 104.9 fl (80-100); Mean Platelet Volume 10.7 fl (7.4-10.4); Monocytes Absolute Auto 1.1 K/mm3 (0.1-0.6); Monocytes Percent Auto 12.3 % (2.6-8.5); Neutrophils Absolute Auto 4.5 K/mm3 (1.3-6.7); Nucleated Red Blood Cells Perc 0.4 % (0.0-0.2); Platelet Count Result 226 k/mm3 (150-375); Red Blood Count 3.04 M/mm3 (4.6-6.20); Red Cell Distribution Width 14.1 % (11.5-14.5); White Blood Count 8.5 K/mm3 (4.5-10.0)
[2020-09-05 06:54] LABS: Anion Gap 12 mmol/L (8-16); Bilirubin Indirect 1.1 mg/dL (0-1.1); Bilirubin,Total 1.6 mg/dL (0.2-1.3); Blood Urea Nitrogen 9 mg/dL (9-20); Calcium 7.4 mg/dL (8.4-10.2); Carbon Dioxide 38 mmol/L (22-30); Chloride 84 mmol/L (98-107); Estimated CRCL calculation 123 ml/min; Estimated Glomerular Filt Rate > 60; Glucose 121 mg/dL (75-110); Magnesium 1.1 mg/dL (1.6-2.3); Potassium 2.5 mmol/L (3.4-5.0); Sodium 134 mmol/L (137-145)
[2020-09-05] MEDS: ALBUTEROL SULFATE NEB 2.5 MG/0.5 ML INH 5 MG INHALATION ×3 (08:20→22:03)
[2020-09-05] MEDS: MAGNESIUM SULFATE 3GM/D5W100ML 3 GM/100 ML BAG IVPB (08:30)
[2020-09-05] MEDS: THIAMINE HCL 200 MG/2 ML VIAL 100 MG IV PUSH (08:30)
[2020-09-05] MEDS: POTASSIUM CHLORIDE 20 MEQ TABLET PO (08:32)
--- NOTE | 2020-09-05 11:52 | P.PNIM_ITS ---
Progress Note: A&P Assessment and Plan (1) Abdominal pain: Qualifiers: Abdominal location: generalized Qualified Code(s): R10.84 - Generalized abdominal pain Code(s): R10.9 - Unspecified abdominal pain Status: Acute Assessment and Plan: Likely secondary to known alcoholic gastritis. It has been verbalized to the patient that he needs to quit drinking if he wants his abdominal pain to improve. RUQ US shows evidence of cirrhosis and gb wall thickening likely due to chronic liver disease. * Pain control as needed * Will consult GI for further recommendations and possible EGD to assess for any ulcers * will do PPI Q12 hr * Monitor (2) Alcohol abuse: Code(s): F10.10 - Alcohol abuse, uncomplicated Status: Acute Assessment and Plan: Currently the patient does not have any withdrawal symptoms. * Continue with [facility] protocol * thiamine IV daily * Lorazepam prn for alcohol withdrawal symptoms (3) Ascites: Qualifiers: Ascites type: due to alcoholic cirrhosis Qualified Code(s): K70.31 - Alcoholic cirrhosis of liver with ascites Code(s): R18.8 - Other ascites Status: Acute Assessment and Plan: The patient has mild ascites. * We will continue to monitor and consider diuretics as he was treated with [address] of NS IV bolus in ER and started on LR at 125 cc/hr; this has since been d/c. * Consider diuretics once electrolytes have improved (4) Hypokalemia: Code(s): E87.6 - Hypokalemia Status: Acute Assessment and Plan: K 2.5 this morning. * Potassium replaced this morning; will obtain BMP this afternoon and replace as needed * Monitor BMP closely (5) Malnutrition: Qualifiers: Malnutrition type: unspecified type Qualified Code(s): E46 - Unspecified protein-calorie malnutrition Code(s): E46 - Unspecified protein-calorie malnutrition Status: Acute Assessment and Plan: secondary to poor PO intake as the patient is only drinking alcohol. * Nutrition as been consulted and appreciate recommendations * Encourage PO nutrition. (6) Alcoholic liver disease: Code(s): K70.9 - Alcoholic liver disease, unspecified Status: Acute Assessment and Plan: w/ hyperbilirubinemia, elevated AST, hepatomegaly, ascites. * Monitor LFTs. * The patient has a follow up with the liver specialist in early September. * The patient understands he needs to quit drinking alcohol. (7) GERD (gastroesophageal reflux disease): Qualifiers: Esophagitis presence: esophagitis presence not specified Qualified Code(s): K21.9 - Gastro-esophageal reflux disease without esophagitis Code(s): K21.9 - Gastro-esophageal reflux disease without esophagitis Status: Acute Assessment and Plan: * Continue PPI Q12hr therapy. (8) Tobacco dependence: Code(s): F17.200 - Nicotine dependence, unspecified, uncomplicated Status: Chronic Assessment and Plan: * Patient denies need for nicotine patch at this time. * Smoking cessation education Subjective Date/time seen: 09/05/20 11:52 Interval history: Patient is a 55 yo M with history of GERD, duodenal ulcers, diverticulitis, chronic back pain, and alcohol abuse
--- NOTE | 2020-09-05 11:52 | PM.IMPN ---
Progress Note: A&P Assessment and Plan (1) Abdominal pain: Qualifiers: Abdominal location: generalized Qualified Code(s): R10.84 - Generalized abdominal pain Code(s): R10.9 - Unspecified abdominal pain Status: Acute Assessment and Plan: Likely secondary to known alcoholic gastritis. It has been verbalized to the patient that he needs to quit drinking if he wants his abdominal pain to improve. RUQ US shows evidence of cirrhosis and gb wall thickening likely due to chronic liver disease. Pain control as needed Will consult GI for further recommendations and possible EGD to assess for any ulcers will do PPI Q12 hr Monitor (2) Alcohol abuse: Code(s): F10.10 - Alcohol abuse, uncomplicated Status: Acute Assessment and Plan: Currently the patient does not have any withdrawal symptoms. Continue with CIWA-AR protocol thiamine IV daily Lorazepam prn for alcohol withdrawal symptoms (3) Ascites: Qualifiers: Ascites type: due to alcoholic cirrhosis Qualified Code(s): K70.31 - Alcoholic cirrhosis of liver with ascites Code(s): R18.8 - Other ascites Status: Acute Assessment and Plan: The patient has mild ascites. We will continue to monitor and consider diuretics as he was treated with 1 liter of NS IV bolus in ER and started on LR at 125 cc/hr; this has since been d/c. Consider diuretics once electrolytes have improved (4) Hypokalemia: Code(s): E87.6 - Hypokalemia Status: Acute Assessment and Plan: K 2.5 this morning. Potassium replaced this morning; will obtain BMP this afternoon and replace as needed Monitor BMP closely (5) Malnutrition: Qualifiers: Malnutrition type: unspecified type Qualified Code(s): E46 - Unspecified protein-calorie malnutrition Code(s): E46 - Unspecified protein-calorie malnutrition Status: Acute Assessment and Plan: secondary to poor PO intake as the patient is only drinking alcohol. Nutrition as been consulted and appreciate recommendations Encourage PO nutrition. (6) Alcoholic liver disease: Code(s): K70.9 - Alcoholic liver disease, unspecified Status: Acute Assessment and Plan: w/ hyperbilirubinemia, elevated AST, hepatomegaly, ascites. Monitor LFTs. The patient has a follow up with the liver specialist in early September. The patient understands he needs to quit drinking alcohol. (7) GERD (gastroesophageal reflux disease): Qualifiers: Esophagitis presence: esophagitis presence not specified Qualified Code(s): K21.9 - Gastro-esophageal reflux disease without esophagitis Code(s): K21.9 - Gastro-esophageal reflux disease without esophagitis Status: Acute Assessment and Plan: Continue PPI Q12hr therapy. (8) Tobacco dependence: Code(s): F17.200 - Nicotine dependence, unspecified, uncomplicated Status: Chronic Assessment and Plan: Patient denies need for nicotine patch at this time. Smoking cessation education Subjective Date/time seen: 09/05/20 11:52 Interval history: Patient is a 55 yo M with history of GERD, duodenal ulcers, diverticulitis, chronic back pain, and alcohol abuse who is seen in follow up for abdominal pain likely related to alcohol associated gastritis and acute hypokalemia. Patient states he feels somewhat better today, although still has diffuse abdominal pain and distension. No N/v. Otherwise no complaints. Denies f/c/s, headaches, dizziness, lightheadedness, cp/palpitations, sob, change in chronic cough, changes in BMs, dysuria, hematuria, cloudy urine, calf p
[2020-09-05 12:06] LABS: Glucose Point of Care 131 (65-105)
[2020-09-05 12:11] LABS: Glucose Point of Care 138 (65-105)
[2020-09-05 12:30] LABS: Anion Gap 7.99999 mmol/L (8-16); Blood Urea Nitrogen 10 mg/dL (9-20); Calcium 7.6 mg/dL (8.4-10.2); Carbon Dioxide > 40 mmol/L (22-30); Chloride 83 mmol/L (98-107); Estimated CRCL calculation 123 ml/min; Estimated Glomerular Filt Rate > 60; Glucose 129 mg/dL (75-110); Potassium 2.9 mmol/L (3.4-5.0); Sodium 131 mmol/L (137-145)
[2020-09-05] MEDS: POTASSIUM CHLORIDE 20 MEQ PACKET (FOR LIQUID) PO (15:41)
--- NOTE | 2020-09-05 16:34 | WPDGICN ---
Assessment and Plan Assessment and plan (1) Cirrhosis: Qualifiers: Ascites presence: with ascites Hepatic cirrhosis type: alcoholic cirrhosis Qualified Code(s): K70.31 - Alcoholic cirrhosis of liver with ascites Code(s): K74.60 - Unspecified cirrhosis of liver Status: Acute Assessment and Plan: Patient with alcohol induced cirrhosis. CT scan consistent with this finding. No overt evidence for etiology for his pain. He does have a very mild degree of ascites. This may be difficult to obtain with paracentesis.plan is to start spironolactone as a diuretic. Continue daily weights low-salt diet. If pain persist abdominal paracentesis may be required. Strict alcohol avoidance is encouraged. Low-salt diet advised. (2) Ascites: Qualifiers: Ascites type: due to alcoholic cirrhosis Qualified Code(s): K70.31 - Alcoholic cirrhosis of liver with ascites Code(s): R18.8 - Other ascites Status: Acute Assessment and Plan: Very small degree of ascites was evident on the CT scan. This may not be enough for paracentesis. As stated above diuretics will be started. (3) Alcohol abuse: Code(s): F10.10 - Alcohol abuse, uncomplicated Status: Acute GI Consult Note Consult date/time: 09/05/20 16:34 HPI: Tyrone Weston is a 55 year old male seen in evaluation at the request of the hospitalist service. Patient has 1-2 week history of rather diffuse abdominal pain. He has noticed some increased abdominal distention over last 1 week. Patient is known to have alcoholic cirrhosis. Underwent recent EGD by that revealed mild gastritis. He has a distant history of diverticulitis 1 year ago. He had has a nonfunctioning pain pump. Patient is significant amount of alcohol intake over long many year history. Because of abdominal pain and abdominal distention was admitted to the hospital for further evaluation. Review of Systems Review of Systems: All systems reviewed & are unremarkable except as noted in HPI and below PMFSH Past Medical History Medical History Alcohol abuse Cervical radiculopathy Chronic back pain Pain pump in the right lower quadrant which is nonfunctioning. Patient has a spinal cord stimulator as well. Diverticulitis (~01/2018) GERD (gastroesophageal reflux disease) Hepatic steatosis Insomnia Peptic ulcer disease (~01/2018) Duodenal ulcers noted on EGD per Dr. Maldonado. Peripheral neuropathy Spinal cord stimulator status Tobacco dependence Surgical History Surgical History History of appendectomy History of lumbar discectomy (~1995) L4-L5. History of lumbar fusion (~2009) L3-L5. History of vasectomy Family History Family History Mother Patient's mother is in good health Father Family history of malignant neoplasm of esophagus Patient's father is Family history of malignant neoplasm Other Cerebrovascular accident Family history of alcoholism Hypertension Social History Social History Social History: The patient lives in [place] with his . Their children are grown. 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 He smokes 1 to 2 packs of cigarettes per day and has for many years. He drinks up to 12 beers a day in addition to several shots a day. He has been drinking in this amount for the past 10 years or so. He denies illicit drug use. He designates his , Livia, as his surrogate decision maker and he wishes to be a full code. Smoking packs per day: 1 Smoking cigarettes per day: 20.0 Smoking status: Heavy tobacco smoker Tobacco type: cigarettes Additional smoking assessment comments: Due to cough and SOB, patient has decreased from 2ppd to 1ppd [place]
[2020-09-05 17:41] LABS: Glucose Point of Care 146 (65-105)
[2020-09-05] MEDS: SPIRONOLACTONE 25 MG TABLET PO (19:01)
[2020-09-05] MEDS: PANTOPRAZOLE 40 MG TABLET PO (20:51)
[2020-09-05 21:29] LABS: Anion Gap 3.99999 mmol/L (8-16); Blood Urea Nitrogen 12 mg/dL (9-20); Calcium 7.6 mg/dL (8.4-10.2); Carbon Dioxide > 40 mmol/L (22-30); Chloride 88 mmol/L (98-107); Estimated CRCL calculation 85 ml/min; Estimated Glomerular Filt Rate > 60; Glucose 126 mg/dL (75-110); Potassium 3.5 mmol/L (3.4-5.0); Sodium 132 mmol/L (137-145)
[2020-09-05 22:53] LABS: Glucose Point of Care 131 (65-105)
[2020-09-06] VITALS (14 sets, daily range): BP systolic 98–138; BP diastolic 57–80; PULSE 68–110; RESP 14–18; TEMP 36.3–36.6; O2SAT 95–98; BMI 21.9
[2020-09-06] MEDS: ALBUTEROL SULFATE NEB 2.5 MG/0.5 ML INH 5 MG INHALATION ×3 (03:34→19:30)
[2020-09-06 06:35] LABS: Hematocrit 31.4 % (42.0-52.0); Hemoglobin 11.6 g/dL (14.0-18.0); Mean Corpuscular HGB Conc 36.9 g/dl (32-36); Mean Corpuscular Hemoglobin 38.8 pg (26-34); Mean Platelet Volume 10.8 fl (7.4-10.4); Platelet Count Result 220 k/mm3 (150-375); Red Blood Count 2.99 M/mm3 (4.6-6.20); White Blood Count 7.2 K/mm3 (4.5-10.0)
[2020-09-06 06:49] LABS: Alanine Aminotransferase 28 U/L (4-50); Albumin Level 2.5 g/dL (3.5-5.1); Alkaline Phosphatase 148 U/L (38-126); Anion Gap 7 mmol/L (8-16); Aspartate Amino Transferase 117 U/L (17-59); Bilirubin,Total 2.5 mg/dL (0.2-1.3); Blood Urea Nitrogen 14 mg/dL (9-20); Calcium 7.9 mg/dL (8.4-10.2); Carbon Dioxide 39 mmol/L (22-30); Chloride 87 mmol/L (98-107); Estimated CRCL calculation 114 ml/min; Estimated Glomerular Filt Rate > 60; Glucose 126 mg/dL (75-110); Magnesium 1.5 mg/dL (1.6-2.3); Potassium 3.1 mmol/L (3.4-5.0); Sodium 133 mmol/L (137-145)
[2020-09-06 07:41] LABS: Glucose Point of Care 129 (65-105)
[2020-09-06 08:21] LABS: Glucose Point of Care 127 (65-105)
[2020-09-06] MEDS: PANTOPRAZOLE 40 MG TABLET PO ×2 (08:24→20:20)
[2020-09-06] MEDS: MAGNESIUM SULF 2 GM/WATER 50ML 2 GM/50 ML BAG IVPB (08:26)
[2020-09-06] MEDS: SPIRONOLACTONE 25 MG TABLET PO ×2 (09:55→17:04)
[2020-09-06] MEDS: POTASSIUM CHLORIDE 20 MEQ TABLET 40 MEQ PO (09:55)
[2020-09-06] MEDS: THIAMINE HCL 200 MG/2 ML VIAL 100 MG IV PUSH (09:55)
[2020-09-06] MEDS: TAMSULOSIN HCL 0.4 MG CAPSULE PO (09:55)
[2020-09-06] MEDS: MAGNESIUM SULF 1 GM/D5W 100 ML 1 GM/100 ML BAG IVPB (10:38)
--- NOTE | 2020-09-06 12:01 | WPDGIPROGNO ---
Progress Note: A&P Additional Plan Patient alert more comfortable this morning. He states abdominal pain is gone. physical exam reveals patient to be alert. Comfortable at rest. He is anicteric. Lungs are clear. Heart without murmur. Abdomen soft with modest distention. Shifting dullness appreciated. Extremities are without clubbing cyanosis or edema. Impression 1. Alcoholic liver disease underlying cirrhosis suspected. EGD will be performed tomorrow to evaluate for varices. Continued diuresis initially with Aldactone suggested. Low-salt diet advised. Hopefully stop potassium supplements as potassium level improves. 2. Alcohol abuse. Patient will need to abstain from alcohol. Subjective Date/time seen: 09/06/20 12:01 Objective Data Vital Signs Vital Signs: Vital Signs - 24 hr 09/05/20 14:00 09/05/20 14:01 09/05/20 14:06 Temperature 97.7 F Pulse Rate 98 105 H 104 H Pulse Rate [Left Radial] Respiratory Rate 18 20 20 Blood Pressure 111/64 Pulse Oximetry 98 09/05/20 16:00 09/05/20 20:05 09/05/20 21:55 Temperature 98.2 F Pulse Rate 103 H 96 100 Pulse Rate [Left Radial] 98 Respiratory Rate 20 16 Blood Pressure 130/82 130/82 Pulse Oximetry 95 95 09/05/20 22:04 09/06/20 00:00 09/06/20 03:34 Temperature Pulse Rate 96 90 94 Pulse Rate [Left Radial] 98 Respiratory Rate 20 18 Blood Pressure 130/76 Pulse Oximetry 09/06/20 03:41 09/06/20 04:00 09/06/20 05:46 Temperature 97.8 F Pulse Rate 93 90 94 Pulse Rate [Left Radial] 98 Respiratory Rate 18 18 Blood Pressure 138/80 138/80 Pulse Oximetry 98 09/06/20 08:00 Temperature Pulse Rate 90 Pulse Rate [Left Radial] 87 Respiratory Rate Blood Pressure Pulse Oximetry Intake/Output Intake/Output: Intake & Output 09/03/20 09/04/20 09/05/20 09/06/20 23:59 23:59 23:59 23:59 Intake Total 2120 1010 Output Total 800 450 Balance 1320 560 Meds/Results Medications: Active Medications Generic Name Dose Route Start Last Admin Trade Name Freq PRN Reason Stop Dose Admin Albuterol 5 mg 09/05/20 08:00 09/06/20 09:15 Albuterol Sulfate Neb 2.5 Mg/0.5 Ml Inh INHALATION Not Given Q6HRT SCOTT Calcium Carbonate 200 mg 09/06/20 10:14 Calcium Carbonate (Tums) 500 Mg (200 Mg Elemental) PO Q6H PRN Indigestion Docusate Sodium 100 mg 09/06/20 10:14 Docusate Sodium 100 Mg Capsule PO Q12H PRN Constipation Lorazepam 1 mg 09/05/20 05:14 Lorazepam Inj (*Crx) 2 Mg/Ml Vial IV PUSH Q4H PRN Withdrawal Ondansetron HCl 4 mg 09/05/20 02:29 Ondansetron Inj 4 Mg/2 Ml Vial IV PUSH Q4H PRN Nausea Pantoprazole Sodium 40 mg 09/05/20 21:00 09/06/20 08:24 Pantoprazole 40 Mg Tablet PO 40 mg Q12HR SCOTT Administration Polyethylene Glycol 17 gm 09/06/20 10:14 Polyethylene Glycol 3350 17 Gm Powd.Pack PO QAM PRN Constipation Spironolactone 25 mg 09/05/20 17:00 09/06/20 09:55 Spironolactone 25 Mg Tablet PO 25 mg BID SCOTT Administration Tamsulosin HCl 0.4 mg 09/05/20 09:00 09/06/20 09:55 Tamsulosin Hcl 0.4 Mg Capsule PO 0.4 mg QAM SCOTT Administration Thiamine HCl 100 mg 09/05/20 09:00 09/06/20 09:55 Thiamine Hcl 200 Mg/2 Ml Vial IV PUSH 100 mg DAILY SCOTT Administration Radiology Results: ITS Impressions Chest X-Ray 09/05/20 07:09 IMPRESSION: 1. Mild atelectasis in left lower lung zone. Abdomen/Pelvis CT 09/05/20 07:34 IMPRESSION: 1. Worsened cirrhosis of the liver with portal venous hypertension. 2. Small volume of ascites. Upper Quadrant Ultrasound 09/05/20 07:59 IMPRESSION: 1. Cirrhosis of the liver. 2. Gallbladder wall thickening, likely secondary to chronic liver disease. Labs Labs: Laboratory Results - last 24 hr 09/05/20 09/05/20 09/05/20 08:43 11:47 12:08 WBC RBC Hgb Hct MCV MCH MCHC RDW Plt Count MPV So
[2020-09-06 12:32] LABS: Glucose Point of Care 126 (65-105)
--- NOTE | 2020-09-06 14:28 | P.PNIM_ITS ---
Progress Note: A&P Assessment and Plan (1) Abdominal pain: Qualifiers: Abdominal location: generalized Qualified Code(s): R10.84 - Generalized abdominal pain Code(s): R10.9 - Unspecified abdominal pain Status: Acute Assessment and Plan: Likely secondary to known alcoholic gastritis. It has been verbalized to the patient that he needs to quit drinking if he wants his abdominal pain to improve. * RUQ US shows evidence of cirrhosis and gallbladder wall thickening likely due to chronic liver disease. * GI, Dr. Maldonado was consulted and will perform an EGD tomorrow to evaluate for underlying causes of pain and varices. * He states pain has improved but will continue with p.r.n. medications as n eeded * Continue PPI Q12 hr * Monitor (2) Alcohol abuse: Code(s): F10.10 - Alcohol abuse, uncomplicated Status: Acute Assessment and Plan: Currently the patient does not have any withdrawal symptoms. * CIWA has been 0-1 * Continue with CIWA-AR protocol * thiamine IV daily * Lorazepam prn for alcohol withdrawal symptoms (3) Ascites: Qualifiers: Ascites type: due to alcoholic cirrhosis Qualified Code(s): K70.31 - Alcoholic cirrhosis of liver with ascites Code(s): R18.8 - Other ascites Status: Acute Assessment and Plan: The patient has mild ascites. * Will not preform paracentesis at this time unless causing more issues. (4) Hypokalemia: Code(s): E87.6 - Hypokalemia Status: Acute Assessment and Plan: K 3.1 this morning. Magnesium was low at 1.5 * Potassium and magnesium replaced this morning. * Monitor BMP closely (5) Malnutrition: Qualifiers: Malnutrition type: unspecified type Qualified Code(s): E46 - Unspecified protein-calorie malnutrition Code(s): E46 - Unspecified protein-calorie malnutrition Status: Acute Assessment and Plan: secondary to poor PO intake as the patient is only drinking alcohol. * Nutrition as been consulted and appreciate recommendations * Encourage PO nutrition. (6) Alcoholic liver disease: Code(s): K70.9 - Alcoholic liver disease, unspecified Status: Acute Assessment and Plan: w/ hyperbilirubinemia, elevated AST, hepatomegaly, ascites. * Monitor LFTs. * The patient has a follow up with the liver specialist in early September. * The patient understands he needs to quit drinking alcohol. (7) GERD (gastroesophageal reflux disease): Qualifiers: Esophagitis presence: esophagitis presence not specified Qualified Code(s): K21.9 - Gastro-esophageal reflux disease without esophagitis Code(s): K21.9 - Gastro-esophageal reflux disease without esophagitis Status: Acute Assessment and Plan: * Continue PPI Q12hr therapy. (8) Tobacco dependence: Code(s): F17.200 - Nicotine dependence, unspecified, uncomplicated Status: Chronic Assessment and Plan: * Patient denies need for nicotine patch at this time. * Smoking cessation education Time Spent With Patient Time with patient: 25 - 35 minutes Subjective Date/time seen: 09/06/20 14:28 Interval history: Patient is a 55 yo M with history of GERD, duodenal ulcers, diverticulitis, chron
--- NOTE | 2020-09-06 14:28 | PM.IMPN ---
Progress Note: A&P Assessment and Plan (1) Abdominal pain: Qualifiers: Abdominal location: generalized Qualified Code(s): R10.84 - Generalized abdominal pain Code(s): R10.9 - Unspecified abdominal pain Status: Acute Assessment and Plan: Likely secondary to known alcoholic gastritis. It has been verbalized to the patient that he needs to quit drinking if he wants his abdominal pain to improve. RUQ US shows evidence of cirrhosis and gallbladder wall thickening likely due to chronic liver disease. GI, Dr. Maldonado was consulted and will perform an EGD tomorrow to evaluate for underlying causes of pain and varices. He states pain has improved but will continue with p.r.n. medications as needed Continue PPI Q12 hr Monitor (2) Alcohol abuse: Code(s): F10.10 - Alcohol abuse, uncomplicated Status: Acute Assessment and Plan: Currently the patient does not have any withdrawal symptoms. CIWA has been 0-1 Continue with CIWA-AR protocol thiamine IV daily Lorazepam prn for alcohol withdrawal symptoms (3) Ascites: Qualifiers: Ascites type: due to alcoholic cirrhosis Qualified Code(s): K70.31 - Alcoholic cirrhosis of liver with ascites Code(s): R18.8 - Other ascites Status: Acute Assessment and Plan: The patient has mild ascites. Will not preform paracentesis at this time unless causing more issues. (4) Hypokalemia: Code(s): E87.6 - Hypokalemia Status: Acute Assessment and Plan: K 3.1 this morning. Magnesium was low at 1.5 Potassium and magnesium replaced this morning. Monitor BMP closely (5) Malnutrition: Qualifiers: Malnutrition type: unspecified type Qualified Code(s): E46 - Unspecified protein-calorie malnutrition Code(s): E46 - Unspecified protein-calorie malnutrition Status: Acute Assessment and Plan: secondary to poor PO intake as the patient is only drinking alcohol. Nutrition as been consulted and appreciate recommendations Encourage PO nutrition. (6) Alcoholic liver disease: Code(s): K70.9 - Alcoholic liver disease, unspecified Status: Acute Assessment and Plan: w/ hyperbilirubinemia, elevated AST, hepatomegaly, ascites. Monitor LFTs. The patient has a follow up with the liver specialist in early September. The patient understands he needs to quit drinking alcohol. (7) GERD (gastroesophageal reflux disease): Qualifiers: Esophagitis presence: esophagitis presence not specified Qualified Code(s): K21.9 - Gastro-esophageal reflux disease without esophagitis Code(s): K21.9 - Gastro-esophageal reflux disease without esophagitis Status: Acute Assessment and Plan: Continue PPI Q12hr therapy. (8) Tobacco dependence: Code(s): F17.200 - Nicotine dependence, unspecified, uncomplicated Status: Chronic Assessment and Plan: Patient denies need for nicotine patch at this time. Smoking cessation education Time Spent With Patient Time with patient: 25 - 35 minutes Subjective Date/time seen: 09/06/20 14:28 Interval history: Patient is a 55 yo M with history of GERD, duodenal ulcers, diverticulitis, chronic back pain, and alcohol abuse who is seen in follow up for abdominal pain likely related to alcohol associated gastritis and acute hypokalemia. Date of service 09/06/2020: The patient reports having some epigastric abdominal pain today which began around midnight last night. He slept intermittently but still continued to have some discomfort. He cannot describe the pain other than, upset stomach . He still r
[2020-09-06 17:08] LABS: Glucose Point of Care 169 (65-105)
[2020-09-06] MEDS: MELATONIN 3 MG TABLET PO (21:07)
[2020-09-07] VITALS (13 sets, daily range): BP systolic 103–138; BP diastolic 67–96; PULSE 80–101; RESP 14–22; TEMP 36.1–36.7; O2SAT 94–100
[2020-09-07] MEDS: ALBUTEROL SULFATE NEB 2.5 MG/0.5 ML INH 5 MG INHALATION (01:16)
[2020-09-07 04:50] LABS: Glucose Point of Care 139 (65-105)
[2020-09-07 05:44] LABS: Hematocrit 30.8 % (42.0-52.0); Hemoglobin 11.5 g/dL (14.0-18.0); Mean Corpuscular HGB Conc 37.3 g/dl (32-36); Mean Corpuscular Hemoglobin 39.9 pg (26-34); Mean Corpuscular Volume 106.9 fl (80-100); Mean Platelet Volume 10.8 fl (7.4-10.4); Platelet Count Result 216 k/mm3 (150-375); Red Blood Count 2.88 M/mm3 (4.6-6.20); Red Cell Distribution Width 14.6 % (11.5-14.5); White Blood Count 7.9 K/mm3 (4.5-10.0)
[2020-09-07 06:07] LABS: Alanine Aminotransferase 27 U/L (4-50); Albumin Level 2.6 g/dL (3.5-5.1); Alkaline Phosphatase 142 U/L (38-126); Anion Gap 6 mmol/L (8-16); Aspartate Amino Transferase 109 U/L (17-59); Bilirubin,Total 2.4 mg/dL (0.2-1.3); Blood Urea Nitrogen 15 mg/dL (9-20); Calcium 8.1 mg/dL (8.4-10.2); Carbon Dioxide 36 mmol/L (22-30); Chloride 89 mmol/L (98-107); Estimated CRCL calculation 112 ml/min; Estimated Glomerular Filt Rate > 60; Glucose 104 mg/dL (75-110); Potassium 3.9 mmol/L (3.4-5.0); Sodium 131 mmol/L (137-145)
[2020-09-07 06:50] LABS: Glucose Point of Care 116 (65-105)
[2020-09-07] MEDS: THIAMINE HCL 200 MG/2 ML VIAL 100 MG IV PUSH (09:06)
[2020-09-07] MEDS: LACTATED RINGERS 1,000 ML 150 ML IV CONT (09:34)
--- NOTE | 2020-09-07 09:41 | WPDANESEPPF ---
Anes - Initial Pre Proc Eval Procedure: Operation Date: 09/07/20 10:00 Proposed Procedures p Esophagogastroduodenoscopy - Tyrone Maldonado MD Date/Time: 09/07/20 09:41 Surgeon: Gilma Rincon PA-C Pre Op Diagnosis: abdominal pain Patient Data Age: 55 Gender: M Height: 6 ft 3 in Weight: 78.1 kg Last Vital Signs Temp 36.3 C L 09/07/20 09:28 Pulse 95 09/07/20 09:28 Resp 16 09/07/20 09:28 BP 138/96 H 09/07/20 09:28 Pulse Ox 99 09/07/20 09:28 Allergies Allergy/AdvReac Type Severity Reaction Status Date / Time bupropion Allergy Severe HIVES Verified 09/07/20 09:26 Home Medications Medication Instructions Recorded Confirmed Type pantoprazole 40 mg PO QAM 01/15/20 09/05/20 History Laboratory Tests 09/06/20 09/06/20 09/06/20 12:29 17:03 20:23 WBC RBC Hgb Hct MCV MCH MCHC RDW Plt Count MPV Sodium Potassium Chloride Carbon Dioxide Anion Gap BUN Creatinine Estim Creat Clear Calc Estimated GFR Glucose POC Capillary Glucose 126 mg/dl H mg/dl 169 mg/dl H mg/dl 139 mg/dl H mg/dl (65-105) (65-105) (65-105) Calcium Total Bilirubin AST ALT Alkaline Phosphatase Total Protein Albumin 09/07/20 09/07/20 09/07/20 05:20 05:20 06:24 WBC 7.9 K/mm3 K/mm3 (4.5-10.0) RBC 2.88 M/mm3 L M/mm3 (4.6-6.20) Hgb 11.5 g/dL L g/dL (14.0-18.0) Hct 30.8 % L % (42.0-52.0) MCV 106.9 fl H fl (80-100) MCH 39.9 pg H pg (26-34) MCHC 37.3 g/dl H g/dl (32-36) RDW 14.6 % H % (11.5-14.5) Plt Count 216 k/mm3 k/mm3 (150-375) MPV 10.8 fl H fl (7.4-10.4) Sodium 131 mmol/L L mmol/L (137-145) Potassium 3.9 mmol/L mmol/L (3.4-5.0) Chloride 89 mmol/L L mmol/L (98-107) Carbon Dioxide 36 mmol/L H mmol/L (22-30) Anion Gap 6 mmol/L L mmol/L (8-16) BUN 15 mg/dL mg/dL (9-20) Creatinine 0.70 mg/dL mg/dL (0.7-1.3) Estim Creat Clear Calc 112 ml/min ml/min Estimated GFR > 60 (59 - ) Glucose 104 mg/dL mg/dL (75-110) POC Capillary Glucose 116 mg/dl H mg/dl (65-105) Calcium 8.1 mg/dL L mg/dL (8.4-10.2) Total Bilirubin 2.4 mg/dL H mg/dL (0.2-1.3) AST 109 U/L H U/L (17-59) ALT 27 U/L U/L (4-50) Alkaline Phosphatase 142 U/L H U/L (38-126) Total Protein 7.0 g/dL g/dL (6.3-8.2) Albumin 2.6 g/dL L g/dL (3.5-5.1) Patient hx anesthesia problems: none Family hx anesthesia problems: none [facility] Past Medical History Medical History Alcohol abuse Cervical radiculopathy Chronic back pain Pain pump in the right lower quadrant which is nonfunctioning. Patient has a spinal cord stimulator as well. Diverticulitis (~01/2018) GERD (gastroesophageal reflux disease) Hepatic steatosis Insomnia Peptic ulcer disease (~01/2018) Duodenal ulcers noted on EGD per Dr. Maldonado. Peripheral neuropathy Spinal cord stimulator status Tobacco dependence Surgical History Surgical History History of appendectomy History of lumbar discectomy (~1995) L4-L5. History of lumbar fusion (~2009) L3-L5. History of vasectomy Family History Family History Mother Patient's mother is in good health Father Family history of malignant neoplasm of esophagus Patient's father is Family history of malignant neoplasm Ot
[2020-09-07] MEDS: BENZOCAINE (*SP) 60 ML SPRAY CAN (HURRICAINE) 1 SPRAY MUCOUS MEM (10:05)
[2020-09-07] MEDS: TAMSULOSIN HCL 0.4 MG CAPSULE PO (11:29)
[2020-09-07] MEDS: PANTOPRAZOLE 40 MG TABLET PO (11:29)
[2020-09-07 12:54] LABS: Magnesium 1.5 mg/dL (1.6-2.3)
[2020-09-07] MEDS: MAGNESIUM SULF 2 GM/WATER 50ML 2 GM/50 ML BAG IVPB (14:34)
[2020-09-07] MEDS: MAGNESIUM SULF 1 GM/D5W 100 ML 1 GM/100 ML BAG IVPB (15:43)
[2020-09-07] MEDS: SPIRONOLACTONE 25 MG TABLET PO (17:22)
[2020-09-07 20:57] LABS: Glucose Point of Care 109 (65-105)
--- NOTE | 2020-09-08 07:14 | PM.DS ---
DS: Admitting Diagnosis Admitting Diagnosis Admitting Diagnosis: abdominal pain DS: Discharge Diagnosis Discharge Diagnosis (1) Abdominal pain: Qualifiers: Abdominal location: generalized Qualified Code(s): R10.84 - Generalized abdominal pain Code(s): R10.9 - Unspecified abdominal pain Status: Acute Assessment and Plan: Likely secondary to known alcoholic gastritis. It has been verbalized to the patient that he needs to quit drinking if he wants his abdominal pain to improve. RUQ US shows evidence of cirrhosis and gallbladder wall thickening likely due to chronic liver disease. GI, Dr. Maldonado was consulted and performed an EGD which showed esophageal web with dilation and reflux esophagitis. Patient reports feeling better today without much abdominal pain at all. He still has some abdominal distention from the ascites. He is eating and drinking without any issues. He is cleared from GI standpoint to follow-up with hydrogen treater at [facility] next month and follow-up with him p.r.n.. Continue pantoprazole 40 mg once daily and a bland diet. Avoid alcohol, aspirin, NSAIDs. Patient understands and agrees the plan all questions answered. (2) Alcohol abuse: Code(s): F10.10 - Alcohol abuse, uncomplicated Status: Acute Assessment and Plan: Currently the patient does not have any withdrawal symptoms. CIWA has been normal Patient wants to stop drinking alcohol once he is discharged. Education given about quitting alcohol. (3) Ascites: Qualifiers: Ascites type: due to alcoholic cirrhosis Qualified Code(s): K70.31 - Alcoholic cirrhosis of liver with ascites Code(s): R18.8 - Other ascites Status: Acute Assessment and Plan: The patient has mild ascites. Will not preform paracentesis at this time unless causing more issues. (4) Hypokalemia: Code(s): E87.6 - Hypokalemia Status: Acute Assessment and Plan: K 3.9 this morning. Magnesium was low at 1.5 Magnesium replaced this morning. Will check BMP and Mag 1 week. (5) Malnutrition: Qualifiers: Malnutrition type: unspecified type Qualified Code(s): E46 - Unspecified protein-calorie malnutrition Code(s): E46 - Unspecified protein-calorie malnutrition Status: Acute Assessment and Plan: secondary to poor PO intake as the patient is only drinking alcohol. Nutrition as been consulted and appreciate recommendations Encourage PO nutrition. (6) Alcoholic liver disease: Code(s): K70.9 - Alcoholic liver disease, unspecified Status: Acute Assessment and Plan: w/ hyperbilirubinemia, elevated AST, hepatomegaly, ascites. The patient has a follow up with the liver specialist in early September. The patient understands he needs to quit drinking alcohol. (7) GERD (gastroesophageal reflux disease): Qualifiers: Esophagitis presence: esophagitis presence not specified Qualified Code(s): K21.9 - Gastro-esophageal reflux disease without esophagitis Code(s): K21.9 - Gastro-esophageal reflux disease without esophagitis Status: Acute Assessment and Plan: Continue PPI daily as outpatient. (8) Tobacco dependence: Code(s): F17.200 - Nicotine dependence, unspecified, uncomplicated Status: Chronic Assessment and Plan: Patient denies need for nicotine patch at this time. Smoking cessation education DS: Summary Hospital Course Reason for hospitalization: A history liver cirrhosis from alcohol abuse, GERD, diverticulitis presented to the emergency room with epigastric abdominal pain, generalized weakness,
== END 2020-09-07 17:30 | disposition home or self-care (01) ==
LOC: ANHED 09-05 03:15 → ANH3MEDSUR 09-05 03:20
PROVIDERS: Internal Medicine Gastroenterology; Physician Assistant; Admitting Provider Family Medicine; Emergency Provider Emergency Medicine; PCP Internal Medicine; Visit Provider Physician Assistant
PROC: 0DJ08ZZ Inspection of Upper Intestinal Tract, Via Natural or Artificial Opening Endoscopic (ICD-10-PCS; CPT 43235; principal; 2020-09-07 10:00)
DX: R10.84 Generalized abdominal pain (principal); F10.10 Alcohol abuse, uncomplicated; R18.8 Other ascites; E46 Unspecified protein-calorie malnutrition; K70.9 Alcoholic liver disease, unspecified; K74.60 Unspecified cirrhosis of liver; Q39.4 Esophageal web; K21.00 Gastro-esophageal reflux disease with esophagitis, without bleeding; E87.6 Hypokalemia; E86.0 Dehydration; R53.83 Other fatigue; R06.02 Shortness of breath; R10.13 Epigastric pain; G89.29 Other chronic pain; G62.9 Polyneuropathy, unspecified; K27.9 Peptic ulcer, site unspecified, unspecified as acute or chronic, without hemorrhage or perforation; Z98.1 Arthrodesis status; F17.210 Nicotine dependence, cigarettes, uncomplicated; F12.90 Cannabis use, unspecified, uncomplicated
CPT/HCPCS: 43450; 43235; 36415; 71046; 74177; 76705; 80048; 80053; 81001; 82247; 82248; 83690; 83735; 85025; 85027; 85610; 85730; 86850; 86900; 86901; 94640; 96361; 96365; 96366; 96374; 96375; 96376; 99285; A9270; G0378; J2704; J3411; J3475; J3480; J7030; J7120; Q9967

== ENCOUNTER 2020-09-12 07:09 | Outpatient (CLI) | payer OTHER, SELFPAY ==
[2020-09-12 08:09] LABS: Alanine Aminotransferase 29 U/L (4-50); Albumin Level 3.1 g/dL (3.5-5.1); Alkaline Phosphatase 142 U/L (38-126); Anion Gap 6 mmol/L (8-16); Aspartate Amino Transferase 101 U/L (17-59); Blood Urea Nitrogen 20 mg/dL (9-20); Calcium 8.2 mg/dL (8.4-10.2); Carbon Dioxide 30 mmol/L (22-30); Chloride 101 mmol/L (98-107); Estimated Glomerular Filt Rate > 60; Glucose 111 mg/dL (75-110); Magnesium 1.4 mg/dL (1.6-2.3); Sodium 137 mmol/L (137-145)
== END 2020-09-12 07:10 | disposition home or self-care (01) ==
PROVIDERS: PCP Internal Medicine; Visit Provider Physician Assistant
DX: R18.8 Other ascites (principal); K70.9 Alcoholic liver disease, unspecified; K74.60 Unspecified cirrhosis of liver; E87.6 Hypokalemia; R79.0 Abnormal level of blood mineral
CPT/HCPCS: 36415; 80053; 83735

== ENCOUNTER 2020-10-07 02:19 | Outpatient (CLI) | payer OTHER, SELFPAY ==
[2020-10-07 19:52] LABS: SARS-CoV-2 RNA PCR Negative
== END 2020-10-07 02:20 | disposition home or self-care (01) ==
LOC: ANHCOVIDDT 02:19
PROVIDERS: PCP Internal Medicine; Visit Provider Surgery
DX: Z01.812 Encounter for preprocedural laboratory examination (principal); Z20.828 Contact with and (suspected) exposure to other viral communicable diseases
CPT/HCPCS: 87635; C9803; U0003

== ENCOUNTER 2020-10-07 09:00 | Outpatient (CLI) | payer OTHER, SELFPAY ==
--- NOTE | 2020-10-07 09:03 | ECG_ITS ---
Measurements Intervals Ullin Rate: 90 P: 21 ME: 124 QRS: 89 QRSD: 98 T: 12 QT: 369 QTc: 452 Interpretive Statements SINUS RHYTHM BORDERLINE ST-T WAVE ABNORMALITY- ANT/INF LEADS BASELINE ARTIFACT- I, II, AVR, AVL, AVF BORDERLINE ECG Electronically Signed On 10-07-2020 10:06:05 EDITOR by Eyal Lacey D.O.
== END 2020-10-07 09:01 | disposition home or self-care (01) ==
LOC: ANHSURGERY 09:03
PROVIDERS: PCP Internal Medicine; Visit Provider Surgery
DX: Z01.810 Encounter for preprocedural cardiovascular examination (principal); R22.41 Localized swelling, mass and lump, right lower limb; F17.200 Nicotine dependence, unspecified, uncomplicated
CPT/HCPCS: 93005

== ENCOUNTER 2020-10-10 01:16 | Day surgery (SDC) | payer OTHER, SELFPAY ==
[2020-10-05 09:03] VITALS: BMI 20.2
[2020-10-10 10:35] VITALS: BP 136/87; PULSE 104; RESP 14; TEMP 36.1; O2SAT 100
--- NOTE | 2020-10-10 11:08 | WPDHPUPDATE1 ---
History and Physical Update Update Date/Time: 10/10/20 11:08 History and Physical has been reviewed, including an updated exam of the patient. There are NO changes in the patient's condition. Risks, benefits, and alternatives have been discussed and questions answered. Patient agrees to proceed with procedure.
--- NOTE | 2020-10-10 11:16 | WPDANESEPPF ---
Anes - Initial Pre Proc Eval Procedure: Operation Date: 10/10/20 12:30 Proposed Procedures p Excisional Biopsy Of Right Thigh Mass - Beena Flaherty MD Date/Time: 10/10/20 11:16 Surgeon: Beena Flaherty MD Pre Op Diagnosis: Right Thigh Mass Patient Data Age: 55 Gender: M Height: 1.91 m Weight: 70.01 kg Last Vital Signs Temp 36.1 C L 10/10/20 10:35 Pulse 104 H 10/10/20 10:35 Resp 14 10/10/20 10:35 BP 136/87 10/10/20 10:35 Pulse Ox 100 10/10/20 10:35 Allergies Allergy/AdvReac Type Severity Reaction Status Date / Time bupropion Allergy Severe HIVES Verified 10/10/20 11:04 Home Medications Medication Instructions Recorded Confirmed Type pantoprazole 40 mg PO QAM 30 Days #30 tablet 09/07/20 10/10/20 Rx magnesium oxide 400 mg PO BID #60 cap 09/15/20 10/10/20 Rx naltrexone 50 mg tablet 50 mg PO DAILY #30 tablet 09/15/20 10/10/20 Rx spironolactone 25 mg tablet 25 mg PO BID 30 Days #60 tablet 09/15/20 10/10/20 Rx nortriptyline 10 mg PO HS 10/05/20 10/10/20 History Patient hx anesthesia problems: none Family hx anesthesia problems: none PMFSH Past Medical History Medical History Alcohol abuse Cervical radiculopathy Chronic back pain Pain pump in the right lower quadrant which is nonfunctioning. Patient has a spinal cord stimulator as well. Diverticulitis (~01/2018) GERD (gastroesophageal reflux disease) Hepatic steatosis Insomnia Peptic ulcer disease (~01/2018) Duodenal ulcers noted on EGD per Dr. Maldonado. Peripheral neuropathy Spinal cord stimulator status Tobacco dependence Surgical History Surgical History History of appendectomy History of lumbar discectomy (~1995) L4-L5. History of lumbar fusion (~2009) L3-L5. History of vasectomy Family History Family History Mother Patient's mother is in good health Father Family history of malignant neoplasm of esophagus Patient's father is Family history of malignant neoplasm Cerebrovascular accident Other Family history of alcoholism Hypertension Social History Social History Social History: The patient lives in [place] with his . Their children are grown. 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 He smokes 1 to 2 packs of cigarettes per day and has for many years. He drinks up to 12 beers a day in addition to several shots a day. He has been drinking in this amount for the past 10 years or so. He denies illicit drug use. He designates his , Livia, as his surrogate decision maker and he wishes to be a full code. Smoking packs per day: 1.75 Smoking cigarettes per day: 35.0 Years smoked: 41 Smoking pack-years: 71.75 Smoking status: Current every day smoker Tobacco type: cigarettes Additional smoking assessment comments: Due to cough and SOB, patient has decreased from 2ppd to 1ppd Alcohol intake: former Alcohol use details: HISTORY ALCOHOL ABUSE QUIT 09/04/20 Substance use: current Substance use type: marijuana Last use: Took edibles earlier in the week. 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
--- NOTE | 2020-10-10 11:25 | WPDANESEPPF ---
Anes - Initial Pre Proc Eval Procedure: Operation Date: 10/10/20 12:30 Proposed Procedures p Excisional Biopsy Of Right Thigh Mass - Beena Flaherty MD Date/Time: 10/10/20 11:25 Surgeon: Beena Flaherty MD Pre Op Diagnosis: Right Thigh Mass Patient Data Age: 55 Gender: M Height: 1.91 m Weight: 70.01 kg Last Vital Signs Temp 36.1 C L 10/10/20 10:35 Pulse 104 H 10/10/20 10:35 Resp 14 10/10/20 10:35 BP 136/87 10/10/20 10:35 Pulse Ox 100 10/10/20 10:35 Allergies Allergy/AdvReac Type Severity Reaction Status Date / Time bupropion Allergy Severe HIVES Verified 10/10/20 11:04 Home Medications Medication Instructions Recorded Confirmed Type pantoprazole 40 mg PO QAM 30 Days #30 tablet 09/07/20 10/10/20 Rx magnesium oxide 400 mg PO BID #60 cap 09/15/20 10/10/20 Rx naltrexone 50 mg tablet 50 mg PO DAILY #30 tablet 09/15/20 10/10/20 Rx spironolactone 25 mg tablet 25 mg PO BID 30 Days #60 tablet 09/15/20 10/10/20 Rx nortriptyline 10 mg PO HS 10/05/20 10/10/20 History Patient hx anesthesia problems: none Family hx anesthesia problems: none PMFSH Past Medical History Medical History Alcohol abuse Cervical radiculopathy Chronic back pain Pain pump in the right lower quadrant which is nonfunctioning. Patient has a spinal cord stimulator as well. Diverticulitis (~01/2018) GERD (gastroesophageal reflux disease) Hepatic steatosis Insomnia Peptic ulcer disease (~01/2018) Duodenal ulcers noted on EGD per Dr. Maldonado. Peripheral neuropathy Spinal cord stimulator status Tobacco dependence Surgical History Surgical History History of appendectomy History of lumbar discectomy (~1995) L4-L5. History of lumbar fusion (~2009) L3-L5. History of vasectomy Family History Family History Mother Patient's mother is in good health Father Family history of malignant neoplasm of esophagus Patient's father is Family history of malignant neoplasm Cerebrovascular accident Other Family history of alcoholism Hypertension Social History Social History Social History: The patient lives in [place] with his . Their children are grown. 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 He smokes 1 to 2 packs of cigarettes per day and has for many years. He drinks up to 12 beers a day in addition to several shots a day. He has been drinking in this amount for the past 10 years or so. He denies illicit drug use. He designates his , Livia, as his surrogate decision maker and he wishes to be a full code. Smoking packs per day: 1.75 Smoking cigarettes per day: 35.0 Years smoked: 41 Smoking pack-years: 71.75 Smoking status: Current every day smoker Tobacco type: cigarettes Additional smoking assessment comments: Due to cough and SOB, patient has decreased from 2ppd to 1ppd Alcohol intake: former Alcohol use details: HISTORY ALCOHOL ABUSE QUIT 09/04/20 Substance use: current Substance use type: marijuana Last use: Took edibles earlier in the week. 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
[2020-10-10] MEDS: LACTATED RINGERS 1,000 ML 30 ML IV CONT (11:37)
[2020-10-10] MEDS: ceFAZolin 2 GM/D5W 50 ML 2 GM/50 ML BAG IVPB (12:31)
[2020-10-10 13:05] VITALS: BP 125/80; PULSE 112; RESP 16; O2SAT 99
--- NOTE | 2020-10-10 13:13 | PM.PROC ---
Procedure Note - Detailed Date of procedure: 10/10/20 Pre-op diagnosis: Right Thigh Mass Post-op diagnosis: same Procedure performed: Excisional biopsy right upper inner thigh cystic mass measuring approximately 6 x 4 cm Description of procedure: The patient was taken to the operating room placed in the supine position. After adequate induction mac anesthesia, the patient was prepped and draped in the normal sterile fashion. A time-out was then done to verify the patient's identity, as well as the procedure being performed. I localized the skin and surrounding tissue of this cystic mass. This cystic mass looked to be approximately 6 x 4 cm. I began by making an incision over this mass in the right upper inner thigh. There was noted to be a punctate skin opening that was draining some serous fluid. Upon getting to this area, it was noted that the patient had a ruptured cyst. I was able to get around the cyst bluntly, and it was noted that it was likely a large sebaceous cyst. The cyst was completely excised and sent to pathology for further review. Then copiously irrigated the cavity, no other pathology was noted. I then closed the subcutaneous tissue with 3 0 Vicryl suture. The skin was then closed with 4 O Monocryl subcuticular suture. Dermabond was placed on the wound. The patient tolerated the procedure well was alert and awake in the operating room postop. He will be sent to the recovery room in stable condition. Surgeon: Beena Flaherty MD Estimated blood loss (mL): 5 Drains: No Packing: No Pathology: yes Complications: No immediate complications Condition: stable Disposition: PACU Findings: 6 x 4 cm cystic mass in right upper inner thigh
[2020-10-10 13:20] VITALS: BP 131/109; PULSE 90; RESP 16
[2020-10-10 13:35] VITALS: BP 130/77; PULSE 88; RESP 16
== END 2020-10-10 13:57 | disposition home or self-care (01) ==
PROVIDERS: PCP Internal Medicine; Visit Provider Surgery
PROC: (CPT 11406; principal; 2020-10-10 12:30)
DX: L72.0 Epidermal cyst (principal); K21.9 Gastro-esophageal reflux disease without esophagitis; K76.0 Fatty (change of) liver, not elsewhere classified; K27.9 Peptic ulcer, site unspecified, unspecified as acute or chronic, without hemorrhage or perforation; G62.9 Polyneuropathy, unspecified; F17.210 Nicotine dependence, cigarettes, uncomplicated; F12.90 Cannabis use, unspecified, uncomplicated
CPT/HCPCS: 11406; 12032; 88304; J0690; J2250; J2405; J2704; J3010; J7120

== ENCOUNTER 2021-02-24 08:19 | Outpatient (CLI) | payer OTHER, SELFPAY ==
--- NOTE | ~2021-02-24 | US_ITS ---
US abdomen limited INDICATION: Cirrhosis PROCEDURE: Realtime right upper abdominal ultrasound. COMPARISON: No prior studies for comparison. FINDINGS: The pancreas is normal without focal mass or pancreatic ductal dilation. Liver echotexture is increased and heterogeneous. There is surface nodularity. No focal hepatic mass. There is normal directional flow in the portal vein. The gallbladder is normal without stones, gallbladder wall thickening or pericholecystic fluid. Comm on bile duct measures 3.6 mm. No sonographic Chu's sign. IMPRESSION: 1: Cirrhosis of the liver. Reviewed, dictated and finalized at location B. IMPRESSION: 1: Cirrhosis of the liver.
== END 2021-02-24 08:20 | disposition home or self-care (01) ==
LOC: ANHIMG 08:22
PROVIDERS: PCP Internal Medicine; Visit Provider Internal Medicine
DX: K70.31 Alcoholic cirrhosis of liver with ascites (principal)
CPT/HCPCS: 76705

== ENCOUNTER 2021-09-15 10:18 | Outpatient (CLI) | payer OTHER, SELFPAY ==
--- NOTE | ~2021-09-15 | US_ITS ---
US abdomen limited INDICATION: Alcoholic cirrhosis PROCEDURE: Realtime right upper abdominal ultrasound. COMPARISON: No prior studies for comparison. FINDINGS: The pancreas is normal without focal mass or pancreatic ductal dilation. Liver echotexture is increased and heterogeneous, consistent with fatty infiltration. There is a nodular liver surface , compatible with cirrhosis. There is normal directional flow in the portal vein. Gallbladder is contracted. The gallbladder is normal without stones, gallbladder wall thickening or p ericholecystic fluid. Common bile duct measures 4 mm. No sonographic Chu's sign. IMPRESSION: 1: Cirrhosis of the liver with underlying fatty infiltration. Reviewed, dictated and finalized at location B.
== END 2021-09-15 10:19 | disposition home or self-care (01) ==
PROVIDERS: PCP Internal Medicine
DX: K70.30 Alcoholic cirrhosis of liver without ascites (principal)
CPT/HCPCS: 76705

== ENCOUNTER 2021-11-13 17:17 | Inpatient (IN) | payer OTHER, SELFPAY ==
--- NOTE | ~2021-11-13 | US_ITS ---
EXAMINATION: US paracentesis abd w/image DATE: 11/14/2021 12:37 CAMPAIGN ASSISTANT INDICATION: Ascites TECHNIQUE: Survey imaging of the abdomen was performed. The procedure for ultrasound-guided paracent esis and its risk and benefits were discussed with the patient.. The patient verbalized understandin g and provided written consent. A time-out was performed to document the patient's name, date of , and site of procedure. The l eft lower quadrant was prepped and draped in usual sterile fashion. 1% lidocaine was used for local anesthesia. Utilizing ultrasound guidance, a 5 aust[place]ian cather was advanced into the abdomen. Aspirat ion was performed. The patient tolerated procedure without immediate complication. Sterile bandages were applied over t he aspiration site(s).] FINDINGS: 2050 cc of yellowish fluid obtained without complication. Patient tolerated the procedure w ell. IMPRESSION: 1. Successful ultrasound-guided paracentesis. 2050 cc of fluid obtained without complication. Reviewed, dictated and finalized at location A. AIGN ASSISTANT IMPRESSION: 1. Successful ultrasound-guided paracentesis. 2050 cc of fluid obtained withou t complication.
--- NOTE | ~2021-11-13 | CT_ITS ---
EXAMINATION: CT abdomen pelvis w con DATE: 11/13/2021 20:42 INDICATION: Abdominal distention and pain TECHNIQUE: Computed tomography (CT) of the abdomen and pelvis was performed with 100 mL Omnipaque-350 intravenous contrast. Automated exposure control and iterative reconstruction technique were employe d. The dose-length product was 529.36 mGy-cm. COMPARISON: 09/05/2020 FINDINGS: Chronic mild elevation of the right hemidiaphragm associated mild discoid and basilar compressive ate lectasis in the right lower lobe. No pleural effusion. Heart size is normal. Atherosclerotic coronary artery calcification. No pericardial effusion. Again seen is diffuse heterogeneous enhancement/atten uation of the liver with nodular surface consistent with cirrhosis. Small recanalized umbilical vein and dilated coronary vein with ascending esophageal varices consistent with sequela of portal venous hypertension. Moderate amount of ascites scattered throughout the abdomen and pelvis. Gallbladder, sp abbe, pancreas, bilateral adrenal glands and kidneys are normal. Combination of edematous and fatty c olonic wall thickening most prominent at the ascending colon likely related to hepatic colopathy. The re is moderate colonic diverticulosis with a sigmoid predominance. There is no adjacent inflammatory change to suggest diverticulitis. No bowel obstruction. Bladder is normal. Prostatomegaly. Postopera tive changes including L3-L5 posterior spinal fusion with bilateral vertical donavan and pedicle screw fi xation as well as intrathecal pain pump with catheter extending cephalad from the upper lumbar into t he lower thoracic spine with distal tip at the level of T10 as well as a spinal stimulator lead exten ding cephalad along the lower thoracic spine with distal tip at the level of T7-T8. Likely vasectomy clips in the bilateral spermatic cords. IMPRESSION: 1. Cirrhosis with portosystemic collaterals consistent with portal venous hypertension. 2. Moderate ascites. 3. Edematous and fatty colonic wall thickening with ascending colon predominance likely related to he patic colopathy. 4. Moderate diverticulosis. 5. Prostatomegaly. Reviewed, dictated and finalized at [facility]. NICAL SUPPORT DIRECTOR IMPRESSION: 1. Cirrhosis with portosystemic collaterals consistent with portal venous hyper tension. 2. Moderate ascites. 3. Edematous and fatty colonic wall thickening with ascending colon predominanc e likely related to hepatic colopathy. 4. Moderate diverticulosis. 5. Prostatomegaly.
[2021-11-13 17:24] VITALS: BP 105/69; PULSE 97; RESP 19; TEMP 36.5; O2SAT 100
[2021-11-13 19:24] LABS: Basophils Absolute Auto 0.1 K/mm3 (0.0-0.1); Basophils Percent Auto 0.7 % (0.2-1.2); Eosinophils Absolute Auto 0.1 K/mm3 (0-0.3); Hematocrit 34.9 % (42.0-52.0); Hemoglobin 12.8 g/dL (14.0-18.0); Immature Granulocyte Absolute 0.05 K/mm3 (0.00-0.031); Immature Granulocyte Percent A 0.5 % (0-0.5); Lymphocytes Absolute Auto 2.73 K/mm3 (0.9-3.2); Lymphocytes Percent Auto 29.2 % (18.3-44.2); Mean Corpuscular HGB Conc 36.7 g/dl (32-36); Mean Corpuscular Hemoglobin 43.7 pg (26-34); Mean Corpuscular Volume 119.1 fl (80-100); Mean Platelet Volume 11.6 fl (7.4-10.4); Monocytes Absolute Auto 1.1 K/mm3 (0.1-0.6); Monocytes Percent Auto 11.3 % (2.6-8.5); Neutrophils Absolute Auto 5.3 K/mm3 (1.3-6.7); Neutrophils Percent Auto 57.3 % (45.5-73.1); Nucleated Red Blood Cells Perc 0.2 % (0.0-0.2); Platelet Count Result 277 k/mm3 (150-375); Red Blood Count 2.93 M/mm3 (4.6-6.20); Red Cell Distribution Width 16.1 % (11.5-14.5); White Blood Count 9.3 K/mm3 (4.5-10.0)
--- NOTE | 2021-11-13 19:27 | ED.GENADULT ---
HPI - General Adult General Chief complaint: Abdominal Pain Stated complaint: abd distention Time Seen by Provider: 11/13/21 19:05 Source: patient and RN notes reviewed History of Present Illness HPI narrative: Patient is a 56 y/o male complaining of generalized abdominal pain starting 3-4 weeks ago. He describes his pain as aching and rates it as 8/10. He states that laying down alleviates his pain somewhat. He has no vomiting or diarrhea. He noticed that his abdomen is more swollen recently. He has no fever or dysuria. He has history of alcoholic cirrhosis. Related Data Allergies Allergy/AdvReac Type Severity Reaction Status Date / Time bupropion Allergy Severe HIVES Verified 10/25/20 14:01 Review of Systems Constitutional: Constitutional: Denies chills, Denies fever(s), Denies headache(s) and Denies weakness Eyes: Eyes: Denies blurry vision ENT: Denies headache(s) and Denies neck pain Cardiovascular: Cardiovascular: Denies chest pain and Denies dyspnea Respiratory: Respiratory: Denies cough and Denies dyspnea Gastrointestinal: Gastrointestinal: Reports abdominal pain, Denies diarrhea, Denies nausea and Denies vomiting Genitourinary: Genitourinary: Denies hematuria and Denies dysuria Musculoskeletal: Musculoskeletal: Denies back pain and Denies neck pain Neurologic: Denies headache(s) and Denies weakness PMFSH Past Medical History Medical History Alcohol abuse Cervical radiculopathy Chronic back pain Pain pump in the right lower quadrant which is nonfunctioning. Patient has a spinal cord stimulator as well. Diverticulitis (~01/2018) GERD (gastroesophageal reflux disease) Hepatic steatosis Insomnia Peptic ulcer disease (~01/2018) Duodenal ulcers noted on EGD per Dr. Maldonado. Peripheral neuropathy Spinal cord stimulator status Tobacco dependence Surgical History Surgical History History of appendectomy History of lumbar discectomy (~1995) L4-L5. History of lumbar fusion (~2009) L3-L5. History of vasectomy Family History Family History Mother Patient's mother is in good health Father Family history of malignant neoplasm of esophagus Patient's father is Family history of malignant neoplasm Cerebrovascular accident Other Family history of alcoholism Hypertension Social History Social History Social History: The patient lives in [place] with his . Their children are grown. 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 He smokes 1 to 2 packs of cigarettes per day and has for many years. He drinks up to 12 beers a day in addition to several shots a day. He has been drinking in this amount for the past 10 years or so. He denies illicit drug use. He designates his , Livia, as his surrogate decision maker and he wishes to be a full code. Smoking packs per day: 1.75 Smoking cigarettes per day: 35.0 Years smoked: 41 Smoking pack-years: 71.75 Smoking status: Current every day smoker Tobacco type: cigarettes Additional smoking assessment comments: Due to cough and SOB, patient has decreased from 2ppd to 1ppd Alcohol intake: former Alcohol use details: HISTORY ALCOHOL ABUSE QUIT 09/04/20 Substance use: former Substance use type: marijuana Last use: Took edibles earlier in the week. 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
[2021-11-13 19:32] LABS: Lipase 120 U/L (23-300)
[2021-11-13 19:33] LABS: Alanine Aminotransferase 65 U/L (4-50); Albumin Level 3.3 g/dL (3.5-5.1); Alkaline Phosphatase 195 U/L (38-126); Anion Gap 10 mmol/L (8-16); Aspartate Amino Transferase 281 U/L (17-59); Bilirubin,Total 2.3 mg/dL (0.2-1.3); Blood Urea Nitrogen 16 mg/dL (9-20); Calcium 8.2 mg/dL (8.4-10.2); Carbon Dioxide 33 mmol/L (22-30); Chloride 88 mmol/L (98-107); Estimated CRCL calculation 109 ml/min; Estimated Glomerular Filt Rate > 60; Glucose 133 mg/dL (65-110); Potassium 3.8 mmol/L (3.4-5.0); Sodium 131 mmol/L (137-145)
[2021-11-13 20:54] LABS: Hepatitis B Surface Antigen Negative (Negative)
[2021-11-13 21:00] LABS: HAV RESULT Negative (Negative); Hepatitis B Core IgM Result Negative (Negative)
[2021-11-13 21:12] LABS: Hepatitis C Virus Antibody Negative (Negative)
[2021-11-13 22:46] VITALS: BP 111/83; PULSE 91; RESP 18; O2SAT 97
[2021-11-13 22:55] LABS: Ethanol 100 mg/dL (<10); INR 1.4; Prothrombin Time 17.3 Seconds (11.1-14.7)
[2021-11-13 22:56] LABS: Partial Thromboplastin Time 31.7 SECONDS (22.3-36.8)
[2021-11-13 23:23] VITALS: BP 111/83; PULSE 91; RESP 18; O2SAT 96
[2021-11-14] VITALS (10 sets, daily range): BP systolic 89–121; BP diastolic 53–80; PULSE 62–96; RESP 18–20; TEMP 36.4–36.8; O2SAT 95–99; BMI 20.6
[2021-11-14 04:30] LABS: Add Urine Microscopic? YES; Appearance Urine Clear (Clear); Bacteria Urine Trace /hpf; Bilirubin Urine Negative (Negative); Blood Urine Negative (Negative); Color Urine Amber (Yellow); Glucose Urine UA Negative (Negative); Ketones Urine Negative (Negative); Leukocyte Esterase Ur Negative LEU/UL (Negative); Mucus Urine Heavy /lpf; Nitrate Urine Negative (Negative); Protein Urine Negative (Negative); Squamous Epithelial Cell Urine Rare /hpf (Few); WBC Urine 0-3 /hpf
[2021-11-14 04:31] LABS: Specific Grav Ur 1.015 (1.001-1.035)
--- NOTE | 2021-11-14 04:36 | PC.NURSE ---
This patient, Tyrone Weston, was admitted to 3 Med Surg Room 305-02. Patient/family oriented to hospital policies and general routines including ID bracelet, bed and alarms, visiting hours, pain management, procedures, bathroom and other care routines, personal items, smoking policy, room service/diet, and visiting hours. Information on how to activate the Rapid Response Team has been discussed. Patient/Family are encouraged to report perceived risks to care and to ask questions if they do not understand what they are told or what they should do.
--- NOTE | 2021-11-14 06:30 | PM.IMHP ---
H&P: HPI History of Present Illness Date/Time: 11/14/21 06:30 Chief Complaint: Abdominal pain Narrative: Patient is a 56 year old male with a past medical history of liver cirrhosis, pherphial neuropathy, and hypomagnesemia who presented to the ed with complaints of abdominal pain.Patient stated this all started about 2-3 weeks ago. Patient was having problems with his mother who lives in [place]. Patient to go down [place] for 1 month to help his mom because she was unable to be in rehab any further. Patient got very stressed and started to drink which patient stated he was drinking a lot. According to nursing patient was drinking roughly 8 shots of liquor and 20 beers a day. Patient told me that on a normal basis he drinks about 5 beers or shots per day. He stated that he is aware that he has to stop drinking however it has just been very stressful lately. Patient does see a liver specialist [place] however he does know his name. Patient stated that his bili started swelling and his pain got to an 8/10. Patient is weaker than normal and more fatigued. Patient stated that he has had this issue before however they treated with spironolactone. He has been nauseated and his appetite has been very fair. He does have a cough that is producing a clear sputum. Patient denies having DTs with detoxing. Patient also denies shortness of breath, vomiting, headache, vision changes, hearing changes, urinary dysfunction including slow stream inability to start, frequency. Patient did say that he was having some chest pain and has been experiencing some slow weight loss. Patient stated that his chest pain has been dull sternal pain. It has been tolerable since it started. Patient also states that he get outpatient treatment for his liver. Patient also has a pain pump which he states is not been filled in the better is did for a while. Patient also has a nerve stimulator in his back he says that is not on either because it causes more pain. Patient is being admitted to the hospitalist service in observation status Review of Systems Review of Systems: All systems reviewed & are unremarkable except as noted in HPI and below PMFSH Past Medical History Medical History Alcohol abuse Cervical radiculopathy Chronic back pain Pain pump in the right lower quadrant which is nonfunctioning. Patient has a spinal cord stimulator as well. Diverticulitis (~01/2018) GERD (gastroesophageal reflux disease) Hepatic steatosis Insomnia Peptic ulcer disease (~01/2018) Duodenal ulcers noted on EGD per Dr. Maldonado. Peripheral neuropathy Spinal cord stimulator status Tobacco dependence Surgical History Surgical History History of appendectomy History of lumbar discectomy (~1995) L4-L5. History of lumbar fusion (~2009) L3-L5. History of vasectomy Family History Family History (Updated 11/14/21 @ 08:51 by ANIRUDH Welch) Mother Patient's mother is in good health Urinary incontinence concurrent with and due to female genital prolapse Father Family history of malignant neoplasm of esophagus Patient's father is Family history of malignant neoplasm Cerebrovascular accident Other Family history of alcoholism Hypertension Social History Social History (Updated 11/14/21 @ 08:55 by ANIRUDH Welch) Social History: The patient lives in [place] with his . He has two daughters that are grown. 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 He smokes 2 packs of cigarettes per day and has for many years. He drinks up to 12 beers a day in addition to several shots a day. He has been drinking in this amount for the past 10 years or so. He denies illicit drug use. He designates his , Livia, as his surrogate decision maker and he wishes to be a full code. Smoking packs per day
[2021-11-14 09:11] LABS: Albumin Level 3.3 g/dL (3.5-5.1)
[2021-11-14] MEDS: PANTOPRAZOLE 40 MG TABLET PO (09:24)
[2021-11-14] MEDS: SPIRONOLACTONE 25 MG TABLET PO (09:24)
[2021-11-14] MEDS: MAGNESIUM OXIDE 400 MG TABLET PO ×2 (09:24→16:46)
[2021-11-14] MEDS: PROPRANOLOL HCL 20 MG TABLET PO (09:25)
[2021-11-14] MEDS: MAGNESIUM SULF 4 GM/WATER100ML 4 GM/100 ML BAG IVPB (10:41)
[2021-11-14 16:24] LABS: Appearance Peritoneal Fluid Cloudy (Clear); Color Peritoneal Fluid Yellow (Colorless); Source Peritoneal Fluid Peritoneal Fluid
[2021-11-14 16:25] LABS: Mesothelial Cells Peritoneal Fluid 10 %; Nucleated Cells Peritoneal Flu 339 /uL (0-500)
[2021-11-14 16:26] LABS: Lymphocytes Peritoneal Fluid 14 %; Macrophages Peritoneal Fluid 74 %; Neutrophils Peritoneal Fluid 2 % (0-25)
[2021-11-14 16:27] LABS: RBC Peritoneal Fluid 0 /uL (0-100000)
[2021-11-14] MEDS: GABAPENTIN 300 MG CAPSULE PO (20:03)
[2021-11-15] VITALS (9 sets, daily range): BP systolic 84–134; BP diastolic 43–73; PULSE 52–86; RESP 17–18; TEMP 36.1–36.4; O2SAT 92–100
[2021-11-15 07:04] LABS: Alanine Aminotransferase 48 U/L (4-50); Albumin Level 2.7 g/dL (3.5-5.1); Alkaline Phosphatase 138 U/L (38-126); Anion Gap 4 mmol/L (8-16); Aspartate Amino Transferase 180 U/L (17-59); Bilirubin,Total 3.8 mg/dL (0.2-1.3); Blood Urea Nitrogen 18 mg/dL (9-20); Calcium 7.8 mg/dL (8.4-10.2); Carbon Dioxide 33 mmol/L (22-30); Chloride 90 mmol/L (98-107); Estimated CRCL calculation 122 ml/min; Estimated Glomerular Filt Rate > 60; Glucose 107 mg/dL (65-110); Magnesium 1.9 mg/dL (1.6-2.3); Potassium 4.1 mmol/L (3.4-5.0); Sodium 127 mmol/L (137-145)
[2021-11-15 07:13] LABS: Basophils Absolute Auto 0.1 K/mm3 (0.0-0.1); Basophils Percent Auto 1.2 % (0.2-1.2); Eosinophils Absolute Auto 0.1 K/mm3 (0-0.3); Eosinophils Percent Auto 1.5 % (0-4.4); Hematocrit 31.2 % (42.0-52.0); Hemoglobin 11.5 g/dL (14.0-18.0); Immature Granulocyte Absolute 0.02 K/mm3 (0.00-0.031); Immature Granulocyte Percent A 0.3 % (0-0.5); Lymphocytes Absolute Auto 2.32 K/mm3 (0.9-3.2); Lymphocytes Percent Auto 35.4 % (18.3-44.2); Mean Corpuscular HGB Conc 36.9 g/dl (32-36); Mean Corpuscular Hemoglobin 43.9 pg (26-34); Mean Corpuscular Volume 119.1 fl (80-100); Mean Platelet Volume 11.4 fl (7.4-10.4); Monocytes Absolute Auto 0.8 K/mm3 (0.1-0.6); Monocytes Percent Auto 11.7 % (2.6-8.5); Neutrophils Absolute Auto 3.3 K/mm3 (1.3-6.7); Neutrophils Percent Auto 49.9 % (45.5-73.1); Nucleated Red Blood Cells Perc 0.3 % (0.0-0.2); Platelet Count Result 196 k/mm3 (150-375); Red Blood Count 2.62 M/mm3 (4.6-6.20); Red Cell Distribution Width 15.9 % (11.5-14.5); White Blood Count 6.6 K/mm3 (4.5-10.0)
[2021-11-15] MEDS: PANTOPRAZOLE 40 MG TABLET PO (09:02)
[2021-11-15] MEDS: SPIRONOLACTONE 25 MG TABLET PO (09:03)
[2021-11-15] MEDS: MAGNESIUM OXIDE 400 MG TABLET PO ×2 (09:03→16:15)
[2021-11-15 11:48] LABS: Anion Gap 4 mmol/L (8-16); Blood Urea Nitrogen 18 mg/dL (9-20); Calcium 7.8 mg/dL (8.4-10.2); Carbon Dioxide 32 mmol/L (22-30); Chloride 90 mmol/L (98-107); Estimated CRCL calculation 122 ml/min; Estimated Glomerular Filt Rate > 60; Glucose 122 mg/dL (65-110); Potassium 3.8 mmol/L (3.4-5.0); Sodium 126 mmol/L (137-145)
--- NOTE | 2021-11-15 15:01 | PM.IMPN ---
Progress Note: A&P Assessment and Plan (1) Hyponatremia: Code(s): E87.1 - Hypo-osmolality and hyponatremia Status: Acute Assessment and Plan: Noted to be 127 on this mornings labs and worsened to 126 this afternoon -usually ranges from 131-134 -unclear etiology at this time -hold spironolactone -limit free water -obtain urine sodium but may be high due to diuretic -recheck tomorrow -does not appear to be dehydrated. Darker color urine likely due to bilirubin and no dehydration. BUN normal -okay to discharge once this improves (2) Abdominal ascites: Qualifiers: Ascites type: due to alcoholic cirrhosis Qualified Code(s): K70.31 - Alcoholic cirrhosis of liver with ascites Code(s): R18.8 - Other ascites Status: Acute Assessment and Plan: A little over 2L were removed yesterday consistent with ascites from cirrhosis -No sings of infection on cell count or gram stain. Pain has resolved -He needs to quit drinking and he understands this -He sees a doctor for this at [facility] -hold home spironolactone for now due to hypotension and hyponatremia (3) Alcoholic liver disease: Code(s): K70.9 - Alcoholic liver disease, unspecified Status: Acute Assessment and Plan: Liver enzymes elevated, consistent with cirrhosis -Previous provider spoke with Dr. Dewey who said nothing more they can do for the pt and that he can follow up with his doctor outpt and quit drinking -CIWA 0, prn librium ordered -last drink 11/13/21 (4) Cirrhosis: Qualifiers: Ascites presence: with ascites Hepatic cirrhosis type: alcoholic cirrhosis Qualified Code(s): K70.31 - Alcoholic cirrhosis of liver with ascites Code(s): K74.60 - Unspecified cirrhosis of liver Status: Acute Assessment and Plan: As above (5) Hypomagnesemia: Code(s): E83.42 - Hypomagnesemia Status: Acute Assessment and Plan: WNL today -will need outpt supplementation (6) Enlarged prostate: Code(s): N40.0 - Benign prostatic hyperplasia without lower urinary tract symptoms Status: Acute Assessment and Plan: Seen on the CT -PSA 0.2 -pt able to urinate (7) Tobacco abuse: Code(s): Z72.0 - Tobacco use Status: Acute Assessment and Plan: Pt understand he needs to quit smoking -nicotine patch ordered Time Spent With Patient Time with patient: 25 - 35 minutes Subjective Date/time seen: 11/15/21 15:01 Interval history: Pt is a 56 y/o male here for abdominal pain and distention. Pt was seen today and states he is feeling better. he says that his abdomen is less distended and he has very little pain. He has a hx of cirrhosis but continues to drink. He sees a doctor for this at [facility] but cannot remember his name. He says he has been drinking a lot of water and has been thirsty. He denies CP, SOB, fevers, chills, lightheadedness, diarrhea or constipation. He has not experienced any etoh withdraw and has not been hallucinating at all. No known history of low sodium levels that he is aware of. Review of Systems Review of Systems: All systems reviewed & are unremarkable except as noted in HPI and below Exam Narrative: General: Well developed well nourished patient in NAD HEENT: normocephalic Neck: supple Neuro: Alert and oriented x4 CV:RRR Resp:CTA Abd: Soft and distended. Old pain pump to the RLQ. No pain to palpation. Positive bowel sounds Extremities: No swelling, erythema, or pain to palpation. Objective Data Vital Signs Vital Signs: Vital Signs - 24 hr 11/14/21 16:00 11/14/21 17:36 11/14/21 19:43 Temperature 98.0 F Pulse Rate 62 63 Respiratory Rate 18 18 Blood Pressure 89/53 L 101/54 L 110/68 Pulse Oximetry 96 95 11/14/21 20:05 11/15/21 00:00 11/15/21 04:00 Temperature 97.0 F L 96.9 F L Pulse Rate 63 61 64 Respiratory Rate 18 18 Blood Pressure 101/54 L 100/56 L Pulse Oximetry
[2021-11-15 16:37] LABS: Sodium Urine Random 119 meq/L
[2021-11-15] MEDS: GABAPENTIN 300 MG CAPSULE PO (20:10)
[2021-11-16] VITALS: BP 102/62; PULSE 63; PULSE 78; RESP 18; TEMP 36.1; O2SAT 100
[2021-11-16 04:00] VITALS: BP 102/60; PULSE 65; RESP 18; TEMP 36; O2SAT 98
[2021-11-16 07:05] LABS: Alanine Aminotransferase 38 U/L (4-50); Albumin Level 2.4 g/dL (3.5-5.1); Alkaline Phosphatase 140 U/L (38-126); Anion Gap 6 mmol/L (8-16); Aspartate Amino Transferase 143 U/L (17-59); Bilirubin,Total 2.7 mg/dL (0.2-1.3); Blood Urea Nitrogen 21 mg/dL (9-20); Calcium 7.9 mg/dL (8.4-10.2); Carbon Dioxide 30 mmol/L (22-30); Chloride 91 mmol/L (98-107); Estimated CRCL calculation 104 ml/min; Estimated Glomerular Filt Rate > 60; Glucose 101 mg/dL (65-110); Potassium 3.8 mmol/L (3.4-5.0); Sodium 127 mmol/L (137-145)
[2021-11-16 08:00] VITALS: BP 92/58; PULSE 67; RESP 18; TEMP 35.8; O2SAT 99
[2021-11-16] MEDS: PANTOPRAZOLE 40 MG TABLET PO (09:38)
[2021-11-16] MEDS: MAGNESIUM OXIDE 400 MG TABLET PO (09:38)
[2021-11-16 11:50] LABS: Free T4 Free Thyroxine Reflex 1.52 ng/dL (0.78-2.19)
[2021-11-16 12:00] VITALS: BP 98/50; PULSE 73; RESP 18; TEMP 36.6; O2SAT 98
[2021-11-16 13:17] LABS: Total Triiodothyronine (T3) 0.85 NG/ML (0.97-1.69)
--- NOTE | 2021-11-16 14:06 | PM.DS ---
DS: Admitting Diagnosis Discharge Date 11/17/21 Admitting Diagnosis cirrhosis DS: Discharge Diagnosis Discharge Diagnosis (1) Hyponatremia: Code(s): E87.1 - Hypo-osmolality and hyponatremia Status: Acute Assessment and Plan: patient's sodium was 131 on admission and dropped to 127 and stayed there consistently -usually ranges from 131-134 -unclear etiology at this time, he is slightly hypothyroid. Levothyroxine was started -hold spironolactone until we can repeat his BMP outpatient. Patient agrees to see his primary care physician next week. -limit free water - Patient had absolutely no neurological deficits and wanted to be home for the holidays. He follows closely with his primary care physician and has agreed to see them next week for repeat BMP. He is to come back to emergency room if he has any weakness, mental status changes, or any other worrisome symptom. He has agreed (2) Abdominal ascites: Qualifiers: Ascites type: due to alcoholic cirrhosis Qualified Code(s): K70.31 - Alcoholic cirrhosis of liver with ascites Code(s): R18.8 - Other ascites Status: Acute Assessment and Plan: A little over 2L were removed 11/14 consistent with ascites from cirrhosis -No sings of infection on cell count or gram stain. Pain has resolved -He needs to quit drinking and he understands this -He sees a doctor for this at [facility] -hold home spironolactone for now due to hypotension and hyponatremia (3) Alcoholic liver disease: Code(s): K70.9 - Alcoholic liver disease, unspecified Status: Acute Assessment and Plan: Liver enzymes elevated, consistent with cirrhosis -Previous provider spoke with Dr. Dewey who said nothing more they can do for the pt and that he can follow up with his doctor outpt and quit drinking -CIWA 0, patient aware of symptoms of alcohol withdrawal and states he has never had any but will monitor and come back if he starts to have any. -last drink 11/13/21 (4) Cirrhosis: Qualifiers: Ascites presence: with ascites Hepatic cirrhosis type: alcoholic cirrhosis Qualified Code(s): K70.31 - Alcoholic cirrhosis of liver with ascites Code(s): K74.60 - Unspecified cirrhosis of liver Status: Acute Assessment and Plan: As above (5) Hypomagnesemia: Code(s): E83.42 - Hypomagnesemia Status: Acute Assessment and Plan: WNL today. outpatient supplementation ordered (6) Enlarged prostate: Code(s): N40.0 - Benign prostatic hyperplasia without lower urinary tract symptoms Status: Acute Assessment and Plan: Seen on the CT -PSA 0.2 -pt able to urinate without issue (7) Tobacco abuse: Code(s): Z72.0 - Tobacco use Status: Acute Assessment and Plan: Pt understand he needs to quit smoking DS: Summary Hospital Course Hospital Course: DOS 11/16/21 patient is a 56-year-old male with a history of known alcohol cirrhosis who presented emergency room for abdominal swelling and pain with shortness of breath due to fullness. Vitals in the ER were temperature 36.5? C, pulse 97, respiratory rate 19, blood pressure 105/69, pulse ox 100 on room air. Initial white blood cell count 9.3, hemoglobin 12.8, hematocrit 34.9, platelets 277. BMP showed a low sodium 131, low chloride 88, CO2 high at 33. CT of the abdomen pelvis showed cirrhosis with portal venous hypertension, moderate ascites, edematous and fatty colonic wall thickening with ascending colon predominance likely related to hepatic colopathy and prostatomegaly. Patient was admitted to the hospitalist service and underwent a paracentesis which removed 2 L of fluid. This did not look infectious and Gram stain was negative. The patient's symptoms resolved with this. While he was here his sodium dropped to 126 for unclear reasons. His spironolactone was held for a few days. Levothyroxine was stare
[2021-11-17 21:21] LABS: Glucose Peritoneal Fluid 127 mg/dL; LDH Peritoneal Fluid 43 U/L (<63); Total Protein Peritoneal Fluid <3.0 g/dL
[2021-11-18 18:05] LABS: Amylase Peritoneal Fluid <10 U/L
[2021-11-20 06:34] LABS: Albumin Peritoneal Fluid 0.4 g/dL
--- NOTE | 2021-11-20 13:32 | PC.NURSE ---
Ascites fluid cx is negative.
== END 2021-11-16 15:00 | disposition home or self-care (01) | DRG 433 ==
LOC: ANHED 22:46 → ANH3MEDSUR 11-14 00:30
PROVIDERS: Nurse Practitioner; Physician Assistant; Admitting Provider Internal Medicine; Emergency Provider Emergency Medicine; PCP Internal Medicine; Visit Provider Family Medicine
DX: K70.31 Alcoholic cirrhosis of liver with ascites (principal); E87.1 Hypo-osmolality and hyponatremia; F10.10 Alcohol abuse, uncomplicated; E83.42 Hypomagnesemia; N40.0 Benign prostatic hyperplasia without lower urinary tract symptoms; F17.210 Nicotine dependence, cigarettes, uncomplicated; G62.9 Polyneuropathy, unspecified; Z79.899 Other long term (current) drug therapy
CPT/HCPCS: 36415; 49083; 74177; 80048; 80053; 80074; 80076; 80307; 81001; 82040; 82042; 82150; 82945; 83615; 83690; 83735; 84157; 84300; 84439; 84443; 84480; 85025; 85610; 85730; 87070; 87075; 87205; 88104; 88108; 88305; 89051; 96365; 99285; A9270; G0378; J3475; Q9967

== ENCOUNTER 2022-01-31 12:31 | Emergency (ER) | payer OTHER, SELFPAY ==
--- NOTE | ~2022-01-31 | CT_ITS ---
EXAMINATION: CTA chest PE protocol DATE: 01/31/2022 15:38 INDICATION: Shortness of breath TECHNIQUE: Computed tomography angiography (CTA) of the chest was performed with 100 mL Omnipaque-350 intravenous contrast timed to evaluate the pulmonary arteries. Coronal maximum intensity projection 3D-reconstructions were created by the technologist. The dose-length product (DLP) was 296.20 mGy-cm. Automated exposure control and iterative reconstruction technique were employed. COMPARISON: None. FINDINGS: The pulmonary arteries are well-opacified. No pulmonary embolism is identified. There is mi ld emphysema. There is dependent atelectasis. The lungs are free of focal airspace opacities. There i s no pleural effusion or pneumothorax. No pathologically enlarged thoracic lymph nodes are identified . The heart size is normal. Bilateral gynecomastia is noted. There is mild thoracic spondylosis. Neur ostimulator leads end in the epidural space posteriorly over the mid spine. There is also an epidural catheter anteriorly at the lower thoracic spine. IMPRESSION: 1. No pulmonary embolism or acute cardiopulmonary abnormality. Reviewed, dictated and finalized at location B. R BENCH
--- NOTE | ~2022-01-31 | XR_ITS ---
EXAMINATION: XR chest 2V DATE: 01/31/2022 14:11 INDICATION: Shortness of breath TECHNIQUE: PA and lateral views of the chest are obtained. COMPARISON: 09/05/2020 FINDINGS: The lungs are free of acute opacities. There is no pleural effusion or pneumothorax. The ca rdiomediastinal silhouette is normal. There is mild thoracic spondylosis. Neurostimulator leads proje ct over the lower thoracic spine. IMPRESSION: 1. No acute cardiopulmonary abnormality. Reviewed, dictated and finalized at location B. IT UNDERWRITER
[2022-01-31 12:33] VITALS: BP 122/85; PULSE 105; RESP 20; TEMP 36.5; O2SAT 99
--- NOTE | 2022-01-31 13:59 | ECG_ITS ---
Measurements Intervals [place] Rate: 76 P: 229 WA: 239 QRS: 96 QRSD: 86 T: -79 QT: 394 QTc: 444 Interpretive Statements SINUS RHYTHM BASELINE ARTIFACT BORDERLINE RIGHT AXIS DEVIATION [QRS AXIS > 90] MODERATE ST AND T-WAVE ABNORMALITY, ANTERIOR AND INFERIOR LEADS, CONSIDER ISCHEMIA COMPARED TO ECG 10/07/2020 10:20:01 NO SIGNIFICANT CHANGES Electronically Signed On 02-01-2022 13:43:22 ASSOCIATE DIRECTOR OF DEVELOPMENT by Jeffery Stearns M.D.
--- NOTE | 2022-01-31 14:47 | ED.SOB ---
HPI - SOB/Dyspnea General Chief Complaint: Shortness of Breath/Dyspnea Stated Complaint: dyspnea Time Seen by Provider: 01/31/22 14:24 Source: RN notes reviewed History of Present Illness HPI Narrative: Patient presents emergency room from home for shortness of breath. Patient states symptoms began approximately 10 days ago states that shortness of breath is worse with activity and improved with rest but still feels short of breath at rest states has been associated with a cough this been productive of some clear sputum he denies any fevers or chills chest pain abdominal pain nausea vomiting or any other symptoms. States he does have a history of smoking 2 packs of cigarettes a day Related Data Allergies Allergy/AdvReac Type Severity Reaction Status Date / Time bupropion Allergy Severe HIVES Verified 10/25/20 14:01 Review of Systems Review of Systems: Gen.: Denies fevers or chills ENT: Denies congestion Respiratory: See HPI CV: Denies chest pain or palpitations GI: Denies abdominal pain nausea, emesis or diarrhea Musculoskeletal: Denies back pain or muscle pain Neuro: Denies numbness, tingling, weakness or focal weakness Skin: Denies rash Except as documented, all other systems reviewed and negative [facility] Past Medical History Medical History Acquired hypothyroidism Alcohol abuse Cervical radiculopathy Chronic back pain Pain pump in the right lower quadrant which is nonfunctioning. Patient has a spinal cord stimulator as well. Diverticulitis (~01/2018) GERD (gastroesophageal reflux disease) Hepatic steatosis Insomnia Peptic ulcer disease (~01/2018) Duodenal ulcers noted on EGD per Dr. Maldonado. Peripheral neuropathy Spinal cord stimulator status Tobacco dependence Surgical History Surgical History History of appendectomy History of lumbar discectomy (~1995) L4-L5. History of lumbar fusion (~2009) L3-L5. History of vasectomy Family History Family History Mother Patient's mother is in good health Urinary incontinence concurrent with and due to female genital prolapse Father Family history of malignant neoplasm of esophagus Patient's father is Family history of malignant neoplasm Cerebrovascular accident Other Family history of alcoholism Hypertension Social History Social History Social History: The patient lives in [place] with his . He has two daughters that are grown. 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 He smokes 2 packs of cigarettes per day and has for many years. He drinks up to 12 beers a day in addition to several shots a day. He has been drinking in this amount for the past 10 years or so. He denies illicit drug use. He designates his , Livia, as his surrogate decision maker and he wishes to be a full code. Smoking packs per day: 2 Smoking cigarettes per day: 40.0 Years smoked: 43 Smoking pack-years: 86.00 Smoking status: Current every day smoker Tobacco type: cigarettes Second hand tobacco smoke exposure: No Alcohol intake: former Drinks per week: 20 Alcohol use details: Pt quit drinking 11/13/2021. 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
[2022-01-31 14:53] LABS: Basophils Percent Auto 0.5 % (0.2-1.2); Eosinophils Absolute Auto 0.1 K/mm3 (0-0.3); Eosinophils Percent Auto 0.9 % (0-4.4); Hematocrit 38.2 % (42.0-52.0); Hemoglobin 13.6 g/dL (14.0-18.0); Immature Granulocyte Absolute 0.01 K/mm3 (0.00-0.031); Immature Granulocyte Percent A 0.2 % (0-0.5); Immature Platelet Fraction Pct 11.8 % (0.9-11.2); Lymphocytes Absolute Auto 3.37 K/mm3 (0.9-3.2); Lymphocytes Percent Auto 58.3 % (18.3-44.2); Mean Corpuscular HGB Conc 35.6 g/dl (32-36); Mean Corpuscular Hemoglobin 37.7 pg (26-34); Mean Corpuscular Volume 105.8 fl (80-100); Mean Platelet Volume 11.6 fl (7.4-10.4); Monocytes Absolute Auto 0.4 K/mm3 (0.1-0.6); Monocytes Percent Auto 6.9 % (2.6-8.5); Neutrophils Absolute Auto 1.9 K/mm3 (1.3-6.7); Neutrophils Percent Auto 33.2 % (45.5-73.1); Platelet Count Result 90 k/mm3 (150-375); Red Blood Count 3.61 M/mm3 (4.6-6.20); Red Cell Distribution Width 18.2 % (11.5-14.5); White Blood Count 5.8 K/mm3 (4.5-10.0)
[2022-01-31 15:01] LABS: Alanine Aminotransferase 17 U/L (4-50); Albumin Level 3.6 g/dL (3.5-5.1); Alkaline Phosphatase 142 U/L (38-126); Anion Gap 11 mmol/L (8-16); Aspartate Amino Transferase 92 U/L (17-59); Bilirubin,Total 1.5 mg/dL (0.2-1.3); Blood Urea Nitrogen 13 mg/dL (9-20); Calcium 7.9 mg/dL (8.4-10.2); Carbon Dioxide 30 mmol/L (22-30); Chloride 98 mmol/L (98-107); Estimated CRCL calculation 116 ml/min; Estimated Glomerular Filt Rate > 60; Glucose 123 mg/dL (65-110); Potassium 3.6 mmol/L (3.4-5.0); Sodium 139 mmol/L (137-145)
[2022-01-31 15:04] LABS: D Dimer 1.05 ug/mL (<0.48)
[2022-01-31] MEDS: IPRATROPIUM BR 0.02% INH SOLN 0.5 MG/2.5 ML VIAL INHALATION (15:16)
[2022-01-31] MEDS: ALBUTEROL SULFATE NEB 2.5 MG/0.5 ML INH 5 MG INHALATION (15:16)
[2022-01-31 16:48] LABS: SARS-CoV-2 RNA PCR Negative
[2022-01-31 17:45] VITALS: BP 127/81; PULSE 95; RESP 16; O2SAT 97
== END 2022-01-31 17:45 | disposition home or self-care (01) ==
PROVIDERS: Emergency Provider Emergency Medicine; PCP Internal Medicine
DX: J44.9 Chronic obstructive pulmonary disease, unspecified (principal); D69.6 Thrombocytopenia, unspecified; Z20.822 Contact with and (suspected) exposure to COVID-19; F17.210 Nicotine dependence, cigarettes, uncomplicated; E03.9 Hypothyroidism, unspecified; K21.9 Gastro-esophageal reflux disease without esophagitis; K76.0 Fatty (change of) liver, not elsewhere classified
CPT/HCPCS: 36415; 71046; 71275; 80053; 85025; 85055; 85380; 93005; 94640; 99284; C9803; Q9967; U0003; U0005

== ENCOUNTER 2022-02-13 07:49 | Outpatient (CLI) | payer OTHER, SELFPAY ==
--- NOTE | ~2022-02-13 | US_ITS ---
US abdomen limited INDICATION: Alcoholic cirrhosis CT dated 11/13/2021 PROCEDURE: Realtime right upper abdominal ultrasound. COMPARISON: No prior studies for comparison. FINDINGS: Pancreas is obscured by overlying bowel gas. Liver echotexture is increased, consistent wi th fatty infiltration. There is normal directional flow in the portal vein. The gallbladder is normal without stones, gallbladder wall thickening or pericholecystic fluid. Comm on bile duct measures 5.6 mm. No sonographic Chu's sign. Automated exposure control and iterative reconstruction technique were employed. IMPRESSION: 1: Hepatic steatosis. Reviewed, dictated and finalized at location A. IMPRESSION: 1: Hepatic steatosis.
== END 2022-02-13 07:50 | disposition home or self-care (01) ==
PROVIDERS: PCP Internal Medicine; Visit Provider Internal Medicine
DX: K70.31 Alcoholic cirrhosis of liver with ascites (principal); K76.0 Fatty (change of) liver, not elsewhere classified
CPT/HCPCS: 76705

== ENCOUNTER 2022-02-28 07:41 | Outpatient (CLI) | payer OTHER, SELFPAY ==
--- NOTE | ~2022-02-28 | NM_ITS ---
EXAMINATION: NM mansoor stress w perfusion DATE: 02/28/2022 13:03 INDICATION: Dyspnea. Abnormal electrocardiogram. TECHNIQUE: Rest images were obtained following intravenous administration of 9.44 mCi Tc99m tetrofosm in (Myoview). The patient was infused intravenously with Lexiscan (regadenoson). Then, 30 mCi Tc99m t etrofosmin (Myoview) was administered intravenously, and stress images were obtained. Data was recons tructed into short axis and horizontal and vertical long axis SPECT images. Gated SPECT images were a lso obtained. COMPARISON: None. FINDINGS: There is no definite reversible or fixed perfusion abnormality to suggest ischemia or infar ction. There is no segmental wall motion abnormality. Left ventricular ejection fraction measures > 70%. IMPRESSION: 1. No definite ischemia or infarct. 2. Normal left ventricular ejection fraction measuring >70%. Reviewed, dictated and finalized at location A.
--- NOTE | 2022-02-28 07:50 | ECHO_ITS ---
Patient Info Name: Tyrone Weston Age: 56 years : 1965 Gender: Male Ht: 75 in Wt: 160 lbs BSA: 1.95 m2 HR: 77 bpm BP: 128 / 77 mmHg Technical Quality: Good Exam Date: 02/28/2022 8:15 AM Exam Location: [facility] Pul[facility] Patient Status: Outpatient Admit Date: 02/28/2022 Staff Ordering Physician: Edd Morse DO Waitress: Cricket Chu RDCS, RT Attending Provider: Edd Morse DO Referring Physician: Lito HDZ; Exam Type: CA echo doppler color flow Study Info Indications R06.00 - Dyspnea, unspecified Complete two-dimensional, color flow and Doppler transthoracic echocardiogram is performed. Strain analysis performed. Summary 1. Complete two-dimensional, color flow and Doppler transthoracic echocardiogram is performed. 2. Left ventricular chamber dimension is normal. 3. Left ventricular systolic function is normal, estimated at 60-65%. 4. The left ventricular diastolic function is grade I diastolic dysfunction. 5. E/e' 5 is not elevated. 6. Global longitudinal strain is normal at -18.6%. Left Ventricle Global longitudinal strain is normal at -18.6%. E/e' 5 is not elevated. Left ventricular chamber dimension is normal. Left ventricular systolic function is normal, estimated at 60-65%. The left ventricular diastolic function is grade I diastolic dysfunction. Right Ventricle Right ventricular systolic function is normal and with normal TAPSE 2.0 cm. Right ventricular chamber dimension is normal. Left Atria Left atrial chamber dimension is normal. Right Atria Right atrial chamber dimension is normal. Aortic Valve The aortic valve is trileaflet. There is no aortic valve stenosis. There is no aortic valve regurgitation. Pulmonic Valve There is no pulmonic regurgitation. Mitral Valve There is no mitral valve stenosis. There is no mitral valve regurgitation. Tricuspid Valve There is no tricuspid valve regurgitation. Pericardium/Pleural There is no pericardial effusion. Inferior Vena Cava Normal inferior vena cava with >50% collapse upon inspiration consistent with normal right atrial pressure, 5 mmHg. Aorta The aortic root size at the sinus of Valsalva is normal. Left Ventricular Outflow Tract Name Value Normal LVOT Doppler LVOT Peak Gradient 3 mmHg LVOT Mean Gradient 2 mmHg LVOT VTI 18 cm LVOT VTI/AV VTI Ratio 0.9 Mitral Valve Name Value Normal MV Doppler MV Decel [place] 380 cm/s2 MV PHT 59 ms MV Area (PHT) 3.7 cm2 4.0-5.0 MV Diastolic Function MV E Peak Velocity 78 cm/s MV A Peak Velocity 90 cm/s MV E/A 0.9
--- NOTE | 2022-02-28 07:50 | EST_ITS ---
Patient Info Name: Tyrone Weston Age: 56 years : 1965 Gender: Male Ht: 75 in Wt: 160 lbs BSA: 1.95 m2 Exam Date: 02/28/2022 10:00 AM Patient Status: Outpatient Admit Date: 02/28/2022 Staff Ordering Physician: Edd Mrose DO Attending Provider: Edd Morse DO Exercise Technologist: Tammy Rodgers CT Exercise Physician: Eyal Lacey DO Exam Type: CA stress mansoor w NM Study Info Indications R06.00 - Dyspnea, unspecified A regadenoson stress test was performed. Summary 1. 1. Negative lexiscan stress test for ischemic ST changes by ECG criteria. 2. 2. Baseline hypertension. 3. 3. Nuclear scan to follow and will be reported separately. Please correlate with it. 4. 4. Patient informed of the above results. Protocol: Lexiscan Stress ECG Details Stage: REST Duration (min): 1 min : 21 sec HR (bpm): 77 SBP (mmHg): 144 DBP (mmHg): 79 Stage: REST Duration (min): 1 min : 51 sec HR (bpm): 78 SBP (mmHg): 144 DBP (mmHg): 79 Stage: STAGE 1 Duration (min): 1 min : 0 sec HR (bpm): 101 SBP (mmHg): 142 DBP (mmHg): 77 Stage: RECOVERY Duration (min): 1 min : 0 sec HR (bpm): 97 SBP (mmHg): 142 DBP (mmHg): 77 Stage: RECOVERY Duration (min): 2 min : 0 sec HR (bpm): 95 SBP (mmHg): 128 DBP (mmHg): 78 Stage: RECOVERY Duration (min): 2 min : 6 sec HR (bpm): 97 SBP (mmHg): 128 DBP (mmHg): 78 Rest HR: 78 bpm Peak HR: 101 bpm Rest Sys BP: 144 mmHg Peak Sys BP: 142 mmHg Max Pred HR: 163 bpm % Max Pred HR: 62 % Target HR: 139 bpm Max RPP: 14,342 bpm*mmHg Termination Reason: Completed protocol Cardiac Symptoms: Shortness of breath Total Time: 1 min : 0 sec Rest Funk BP: 79 mmHg Peak Funk BP: 77 mmHg Total Dose: 0.4 mg Resting ECG Sinus rhythm, IRBBB, borderline ST-T wave abnormality in anterior leads. Stress ECG No ST changes. Arrhythmias None. Report Signatures
== END 2022-02-28 07:42 | disposition home or self-care (01) ==
LOC: ANHCARD 07:42
PROVIDERS: PCP Internal Medicine; Visit Provider Internal Medicine
DX: R06.00 Dyspnea, unspecified (principal); R94.31 Abnormal electrocardiogram [ECG] [EKG]
CPT/HCPCS: 78452; 93017; 93306; A9502; J2785

== ENCOUNTER 2022-03-09 00:53 | Day surgery (SDC) | payer OTHER, SELFPAY ==
[2022-03-09 07:46] VITALS: BP 117/69; PULSE 88; RESP 16; TEMP 37.3; O2SAT 100
[2022-03-09] MEDS: LACTATED RINGERS 1,000 ML 150 ML IV CONT (07:55)
--- NOTE | 2022-03-09 08:06 | WPDANESEPPF ---
Anes - Initial Pre Proc Eval Procedure: Operation Date: 03/09/22 09:00 Proposed Procedures p Esophagogastroduodenoscopy - Valente Dewey MD Date/Time: 03/09/22 08:06 Surgeon: Valente Dewey MD Pre Op Diagnosis: cirrhosis Patient Data Age: 56 Gender: M Height: 1.91 m Weight: 72.8 kg Last Vital Signs Temp 37.3 C 03/09/22 07:46 Pulse 88 03/09/22 07:46 Resp 16 03/09/22 07:46 BP 117/69 03/09/22 07:46 Pulse Ox 100 03/09/22 07:46 Allergies Allergy/AdvReac Type Severity Reaction Status Date / Time bupropion Allergy Severe HIVES Verified 03/02/22 08:59 Home Medications Medication Instructions Recorded Confirmed Type spironolactone 25 mg tablet 25 mg PO BID 30 Days #60 tablet 05/31/21 03/06/22 Rx magnesium oxide 400 mg (241.3 mg See Rx Instructions .ROUTE 08/01/21 03/06/22 Rx magnesium) tablet .COMPLEX #180 tablet pantoprazole 40 mg tablet,delayed 40 mg PO QAM 30 Days #90 tablet 12/18/21 03/06/22 Rx release albuterol sulfate 90 mcg/actuation 2 puff INHALATION QID PRN #8.5 g 02/05/22 03/06/22 Rx aerosol inhaler gabapentin 300 mg capsule 300 mg PO BID PRN #60 cap 02/05/22 03/06/22 Rx levothyroxine 25 mcg tablet 25 mcg PO DAILY #90 tablet 03/06/22 03/06/22 Rx Patient hx anesthesia problems: none Family hx anesthesia problems: none Results Review: All pre-operative results and documents have been reviewed as part of the pre-operative evaluation. [facility] Past Medical History Medical History Acquired hypothyroidism Alcohol abuse Alcohol use disorder Cervical radiculopathy Chronic back pain Pain pump in the right lower quadrant which is nonfunctioning. Patient has a spinal cord stimulator as well. Diverticulitis (~01/2018) GERD (gastroesophageal reflux disease) Hepatic steatosis Insomnia Peptic ulcer disease (~01/2018) Duodenal ulcers noted on EGD per Dr. Maldonado. Peripheral neuropathy Spinal cord stimulator status Tobacco dependence Surgical History Surgical History History of appendectomy History of lumbar discectomy (~1995) L4-L5. History of lumbar fusion (~2009) L3-L5. History of vasectomy Family History Family History Mother Patient's mother is in good health Urinary incontinence concurrent with and due to female genital prolapse Father Family history of malignant neoplasm of esophagus Patient's father is Family history of malignant neoplasm Cerebrovascular accident Other Family history of alcoholism Hypertension Social History Social History Social History: The patient lives in [place] with his . He has two daughters that are grown. 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 He smokes 2 packs of cigarettes per day and has for many years. He drinks up to 12 beers a day in addition to several shots a day. He has been drinking in this amount for the past 10 years or so. He denies illicit drug use. He designates his , Livia, as his surrogate decision maker and he wishes to be a full code. 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
--- NOTE | 2022-03-09 08:14 | WPDGICN ---
Assessment and Plan Assessment and plan (1) Cirrhosis: Code(s): K74.60 - Unspecified cirrhosis of liver Status: Acute Assessment and Plan: EGD with possible biopsy or dilatation or cautery. GI Consult Note Consult date/time: 03/09/22 08:14 HPI: Tyrone Weston is a 56 year old male With known cirrhosis was treated at [facility]. His last EGD 2 years ago was negative for varices. Returns now for investigation for possible varices. He did have a recent ultrasound of the abdomen that was negative for neoplasm Review of Systems Review of Systems: All systems reviewed & are unremarkable except as noted in HPI and below PMFSH Past Medical History Medical History Acquired hypothyroidism Alcohol abuse Alcohol use disorder Cervical radiculopathy Chronic back pain Pain pump in the right lower quadrant which is nonfunctioning. Patient has a spinal cord stimulator as well. Diverticulitis (~01/2018) GERD (gastroesophageal reflux disease) Hepatic steatosis Insomnia Peptic ulcer disease (~01/2018) Duodenal ulcers noted on EGD per Dr. Maldonado. Peripheral neuropathy Spinal cord stimulator status Tobacco dependence Surgical History Surgical History History of appendectomy History of lumbar discectomy (~1995) L4-L5. History of lumbar fusion (~2009) L3-L5. History of vasectomy Family History Family History Mother Patient's mother is in good health Urinary incontinence concurrent with and due to female genital prolapse Father Family history of malignant neoplasm of esophagus Patient's father is Family history of malignant neoplasm Cerebrovascular accident Other Family history of alcoholism Hypertension Social History Social History Social History: The patient lives in [place] with his . He has two daughters that are grown. 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 He smokes 2 packs of cigarettes per day and has for many years. He drinks up to 12 beers a day in addition to several shots a day. He has been drinking in this amount for the past 10 years or so. He denies illicit drug use. He designates his , Livia, as his surrogate decision maker and he wishes to be a full code. 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 Gender identity (if verbalized by the patient): Male Sexual Orientation (if Verbalized by the Patient): Straight or Heterosexual Spiritual care concerns: No Agree to blood products: Yes Meds Home Medications and Allergies Home Medications Medication Instructions Recorded Confirmed Type spironolactone 25 mg tablet 25 mg PO BID 30 Days #60 tablet 05/31/21 03/06/22 Rx magnesium oxide 400 mg (241.3 mg See Rx Instructions .ROUTE 08/01/21 03/06/22 Rx magnesium) tablet .COMPLEX #180 tablet pantoprazole 40 mg tablet,delayed 40 mg PO QAM 30 Days #90 tablet 12/18/21 03/06/22 Rx release albuterol sulfate 90 mcg/actuation 2 puff INHALATION QID PRN #8.5 g 02/05/22 03/06/22 Rx aerosol inhaler gabapentin 300 mg capsule 300 mg PO BID PRN #60 cap 02/05/22 03/06/22 Rx levothyroxine 25 mcg tablet 25 mcg PO DAILY #90 tablet 03/06/22 03/06/22 Rx Allergies Allergy/AdvReac Type Severity Reaction Status Date / Time bupropion Allergy Sev
[2022-03-09] MEDS: BENZOCAINE (*SP) 60 ML SPRAY CAN (HURRICAINE) 1 SPRAY MUCOUS MEM (08:42)
[2022-03-09] MEDS: SIMETHICONE ORAL SUSPENSION 20 MG/0.3 ML 30 ML BOTTLE 0.6 ML IRRIGATION (08:48)
[2022-03-09 08:55] VITALS: BP 96/56; PULSE 82; RESP 17; O2SAT 97
[2022-03-09 09:05] VITALS: BP 104/66; PULSE 75; RESP 17; O2SAT 98
[2022-03-09 09:15] VITALS: BP 107/72; PULSE 73; RESP 21; O2SAT 100
== END 2022-03-09 09:23 | disposition home or self-care (01) ==
PROVIDERS: PCP Internal Medicine; Visit Provider Internal Medicine Gastroenterology
PROC: 0DJ08ZZ Inspection of Upper Intestinal Tract, Via Natural or Artificial Opening Endoscopic (ICD-10-PCS; CPT 43235; principal; 2022-03-09 09:00)
DX: K74.60 Unspecified cirrhosis of liver (principal); K21.9 Gastro-esophageal reflux disease without esophagitis; K29.70 Gastritis, unspecified, without bleeding; E03.9 Hypothyroidism, unspecified; M54.9 Dorsalgia, unspecified; G89.29 Other chronic pain; G62.9 Polyneuropathy, unspecified; Z87.11 Personal history of peptic ulcer disease; Z98.1 Arthrodesis status; F17.210 Nicotine dependence, cigarettes, uncomplicated; F12.90 Cannabis use, unspecified, uncomplicated; Z79.51 Long term (current) use of inhaled steroids; F10.10 Alcohol abuse, uncomplicated
CPT/HCPCS: 43235; J2704; J7120

== ENCOUNTER 2022-04-03 08:41 | Outpatient (CLI) | payer OTHER, SELFPAY ==
--- NOTE | ~2022-04-03 | US_ITS ---
CORRECTED REPORT Examination change to US abdomen complete per provider request. 04/03/22 [facility] EXAMINATION: US abdomen complete DATE: 04/03/2022 09:24 INDICATION: Unspecified cirrhosis of the liver TECHNIQUE: Multiple grayscale and Doppler ultrasound images of the abdomen were obtained. COMPARISON: 02/13/2022 FINDINGS: Bowel gas obscures visualization of the pancreas. The visualized portions of the pancreas are unremarkable. The liver demonstrates increased echogenicity and coarsened echotexture. There is nodularity of the liver surface. A small volume of ascites is present. Normal hepatopetal flow in the main portal vein. There are no gallstones or gallbladder wall thickening. The normal common bile duct measures 5 mm. There was no sonographic Chu sign. IMPRESSION: 1. Cirrhosis with ascites. Reviewed, dictated and finalized at location A. MTDD IMPRESSION: 1. Cirrhosis with ascites.
== END 2022-04-03 08:42 | disposition home or self-care (01) ==
PROVIDERS: PCP Internal Medicine; Visit Provider Internal Medicine
DX: K70.31 Alcoholic cirrhosis of liver with ascites (principal)
CPT/HCPCS: 76700; 76705

== ENCOUNTER → 2022-04-04 13:11 | Outpatient (REF) | payer OTHER, SELFPAY | LOC: ANHLAB 13:11 | PROVIDERS: PCP Internal Medicine; Visit Provider Internal Medicine | DX: K70.31 Alcoholic cirrhosis of liver with ascites (principal) | CPT/HCPCS: 88104; 88108; 88305 ==

== ENCOUNTER 2022-04-06 11:22 | Outpatient (CLI) | payer OTHER, SELFPAY ==
--- NOTE | ~2022-04-06 | US_ITS ---
EXAMINATION: US paracentesis abd w/image DATE: 04/06/2022 13:56 INDICATION: Ascites. TECHNIQUE: The procedure and its risks and benefits were discussed with the patient. Potential risks discussed included bleeding and infection. The skin was prepped and draped in sterile fashion. 1% lid ocaine was used for local anesthesia. Under ultrasound guidance, a 5 Fr catheter with trochar was adv anced into the ascites in the left lower quadrant. Fluid was aspirated into vacuum bottles. The don ter was removed, and a dressing was applied. There were no immediate complications. FINDINGS: Ultrasound images demonstrate ascites and the catheter within the fluid. IMPRESSION: 1. Successful ultrasound-guided paracentesis yielding 2750 mL of clear dark yellow fluid. Reviewed, dictated and finalized at location A. IMPRESSION: 1. Successful ultrasound-guided paracentesis yielding 2750 mL of clear dark ye llow fluid.
[2022-04-06 12:29] LABS: Mean Platelet Volume 11.9 fl (7.4-10.4); Platelet Count Result 166 k/mm3 (150-375)
[2022-04-06 12:38] LABS: INR 1.5; Prothrombin Time 17.2 Seconds (11.1-14.7)
== END 2022-04-06 11:23 | disposition home or self-care (01) ==
LOC: ANHIMG 11:28
PROVIDERS: Radiology Diagnostic Radiology; PCP Internal Medicine; Visit Provider Internal Medicine
DX: K70.31 Alcoholic cirrhosis of liver with ascites (principal)
CPT/HCPCS: 36415; 49083; 85049; 85610; 87070; 87075; 87205

== ENCOUNTER 2023-03-12 14:01 | Outpatient (CLI) | payer OTHER, SELFPAY ==
[2023-03-12 19:56] LABS: Basophils Absolute Auto 0.1 K/mm3 (0.0-0.1); Basophils Percent Auto 0.8 % (0.2-1.2); Eosinophils Percent Auto 0.2 % (0-4.4); Hematocrit 30.7 % (42.0-52.0); Hemoglobin 10.7 g/dL (14.0-18.0); Immature Granulocyte Absolute 0.02 K/mm3 (0.00-0.031); Immature Granulocyte Percent A 0.2 % (0-0.5); Lymphocytes Absolute Auto 1.91 K/mm3 (0.9-3.2); Lymphocytes Percent Auto 22.1 % (18.3-44.2); Mean Corpuscular HGB Conc 34.9 g/dl (32-36); Mean Corpuscular Hemoglobin 39.8 pg (26-34); Mean Corpuscular Volume 114.1 fl (80-100); Mean Platelet Volume 10.6 fl (7.4-10.4); Monocytes Absolute Auto 1.1 K/mm3 (0.1-0.6); Monocytes Percent Auto 12.3 % (2.6-8.5); Neutrophils Absolute Auto 5.6 K/mm3 (1.3-6.7); Neutrophils Percent Auto 64.4 % (45.5-73.1); Platelet Count Result 203 k/mm3 (150-375); Red Blood Count 2.69 M/mm3 (4.6-6.20); Red Cell Distribution Width 15.6 % (11.5-14.5); White Blood Count 8.6 K/mm3 (4.5-10.0)
[2023-03-12 20:02] LABS: Alanine Aminotransferase 29 U/L (6-50); Albumin Level 3.2 g/dL (3.5-5.1); Alkaline Phosphatase 157 U/L (38-126); Anion Gap 11 mmol/L (8-16); Aspartate Amino Transferase 84 U/L (17-59); Bilirubin,Total 4.4 mg/dL (0.2-1.3); Blood Urea Nitrogen 22 mg/dL (9-20); Calcium 8.5 mg/dL (8.4-10.2); Carbon Dioxide 25 mmol/L (22-30); Chloride 94 mmol/L (98-107); Estimated Glomerular Filt Rate > 60; Glucose 120 mg/dL (65-110); NT Pro B Type Natriuretic Pept 442 pg/mL (19.9-100); Potassium 3.7 mmol/L (3.4-5.0); Sodium 130 mmol/L (137-145)
[2023-03-12 20:27] LABS: Macrocytosis 1+ (NORMAL); Platelet Estimate Adequate (Adequate); Schistocytes None Seen (NORMAL); Target Cells 1+ (NORMAL)
[2023-03-12 21:39] LABS: Folic Acid 3.3 ng/mL (2.76->20)
== END 2023-03-12 14:02 | disposition home or self-care (01) ==
LOC: ANHGOSHLAB 14:02
PROVIDERS: PCP Internal Medicine; Visit Provider Internal Medicine
DX: D64.9 Anemia, unspecified (principal); K70.31 Alcoholic cirrhosis of liver with ascites; R06.00 Dyspnea, unspecified
CPT/HCPCS: 36415; 80053; 82607; 82746; 83880; 84443; 85025

== ENCOUNTER 2023-04-01 08:47 | Emergency (ER) | payer OTHER, SELFPAY ==
--- NOTE | ~2023-04-01 | XR_ITS ---
EXAMINATION: XR femur RT min 2V DATE: 04/01/2023 09:48 INDICATION: Right thigh injury. Fall. TECHNIQUE: 2 views of right femur on 4 radiographs were obtained. COMPARISON: None. FINDINGS: Bone alignment is normal. No fracture. Osteopenia is noted. There is mild right hip osteoar thritis. There are surgical clips overlying the scrotum. IMPRESSION: 1. Mild right hip osteoarthritis. Reviewed, dictated and finalized at location A.
--- NOTE | ~2023-04-01 | XR_ITS ---
EXAMINATION: XR shoulder RT min 2V DATE: 04/01/2023 09:48 INDICATION: Right shoulder injury. Fall. TECHNIQUE: 4 views of right shoulder were obtained. COMPARISON: None. FINDINGS: Bone alignment is normal. No fracture. Joint spaces are normal. Electrodes overlie thoracic spine. There is a small right pleural effusion. IMPRESSION: 1. No fracture. 2. Small right pleural effusion. Reviewed, dictated and finalized at location A.
--- NOTE | ~2023-04-01 | XR_ITS ---
EXAMINATION: [id number] DATE: 04/01/2023 09:48 INDICATION: Right chest injury. Fall. TECHNIQUE: A frontal view of the chest and 2 views on 3 radiographs of the right ribs were obtained. COMPARISON: Chest 2 views 01/31/2022 FINDINGS: There is a small right pleural effusion. No pneumonia or pneumothorax. The heart size is no rmal. Epidural electrodes overlie thoracic spine. There are changes of posterior fusion procedure in lumbar spine. A catheter overlies thoracic spine. IMPRESSION: 1. No rib fracture. 2. Small right pleural effusion. Reviewed, dictated and finalized at location A.
--- NOTE | ~2023-04-01 | XR_ITS ---
EXAMINATION: XR femur LT min 2V DATE: 04/01/2023 09:48 INDICATION: Left thigh injury. Fall. TECHNIQUE: 2 views of left femur on 4 radiographs were obtained. COMPARISON: Left knee radiograph 05/08/2013 FINDINGS: Bone alignment is normal. No fracture. There is mild left hip and knee osteoarthritis. No k nee joint effusion. Surgical clips overlie the scrotum. There are changes of posterior fusion procedu re in lumbar spine. IMPRESSION: 1. Mild left hip and knee osteoarthritis. Reviewed, dictated and finalized at location A.
[2023-04-01 09:03] VITALS: BP 134/85; PULSE 102; RESP 18; TEMP 36.8; O2SAT 100
--- NOTE | 2023-04-01 09:14 | ED.FALL ---
HPI - Fall General Chief Complaint: Fall Stated Complaint: Fall Time Seen by Provider: 04/01/23 09:02 History of Present Illness HPI Narrative: 58-year-old male presents with right rib, right shoulder and bilateral femur pain x2 days. Patient states he fell down approximately 13 steps on Saturday. Patient has a history of liver cirrhosis and generalized weakness. Patient uses walker to ambulate but was not using his walker when he fell. Patient states he slid most of the way down the stairs. Patient denies hitting his head or LOC. Patient states he rested for 2 days but is still having the pain. Patient also sustained skin tears to right elbow and forearm. Patient denies any other symptoms. Onset (ago): day(s) (2) Fall from: standing and down stairs (#) (13) Fall witnessed: no Place fall occurred: home Loss of consciousness: none Symptoms prior to fall: none Location of injury: chest Location of injury - extremities: Right: shoulder and thigh Related Data Home Medications Medication Instructions Recorded Confirmed furosemide 20 mg tablet (Lasix) 20 mg PO BID 12/25/22 03/12/23 midodrine 5 mg tablet 5 mg PO TID 03/12/23 03/12/23 spironolactone 50 mg tablet 100 mg PO ONCE 03/12/23 03/12/23 Allergies Allergy/AdvReac Type Severity Reaction Status Date / Time bupropion Allergy Severe HIVES Verified 03/12/23 13:34 Review of Systems Review of Systems: A 10 system review of systems was completed on the patient and is negative except for what is stated in the HPI. Nursing and ancillary documentation was reviewed. [facility] Past Medical History Medical History Acquired hypothyroidism Alcohol abuse Alcohol use disorder Cervical radiculopathy Chronic back pain Pain pump in the right lower quadrant which is nonfunctioning. Patient has a spinal cord stimulator as well. Diverticulitis (~01/2018) GERD (gastroesophageal reflux disease) Hepatic steatosis Insomnia Peptic ulcer disease (~01/2018) Duodenal ulcers noted on EGD per Dr. Maldonado. Peripheral neuropathy Spinal cord stimulator status Tobacco dependence Surgical History Surgical History History of appendectomy History of lumbar discectomy (~1995) L4-L5. History of lumbar fusion (~2009) L3-L5. History of vasectomy Family History Family History Mother Patient's mother is in good health Urinary incontinence concurrent with and due to female genital prolapse Father Family history of malignant neoplasm of esophagus Patient's father is Family history of malignant neoplasm Cerebrovascular accident Other Family history of alcoholism Hypertension Social History Social History Social History: The patient lives in [place] with his . He has two daughters that are grown. 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 He smokes 2 packs of cigarettes per day and has for many years. He drinks up to 12 beers a day in addition to several shots a day. He has been drinking in this amount for the past 10 years or so. He denies illicit drug use. He designates his , Livia, as his surrogate decision maker and he wishes to be a full code. Smoking packs per day: 1 Smoking cigarettes per day: 20.0 Years smoked: 43 Smoking pack-years: 43.00 Smoking status: Current every day smoker Tobacco type: cigarettes Second hand tobacco smoke exposure: No Alcohol intake: former Alcohol use details: Pt says he does not know how much he drinks a week, states he drinks a lot Substance use: former Substance use type: marijuana Other substance usage details: Per pt uses edibles every once and a while Lack of Transportation: No Lack of Food: Never True Current Housing: I
[2023-04-01] MEDS: MORPHINE SULFATE (*CRX) 4 MG/ML INJ IV PUSH (11:02)
== END 2023-04-01 11:23 | disposition home or self-care (01) ==
PROVIDERS: Emergency Provider Nurse Practitioner Family; PCP Internal Medicine
DX: S20.211A Contusion of right front wall of thorax, initial encounter (principal); M79.652 Pain in left thigh; M79.651 Pain in right thigh; M25.511 Pain in right shoulder; F17.210 Nicotine dependence, cigarettes, uncomplicated; K21.9 Gastro-esophageal reflux disease without esophagitis; K76.0 Fatty (change of) liver, not elsewhere classified; W10.9XXA Fall (on) (from) unspecified stairs and steps, initial encounter
CPT/HCPCS: 71101; 73030; 73552; 96374; 99284; J2270

== ENCOUNTER 2023-09-22 13:53 | Inpatient (IN) | payer OTHER, SELFPAY ==
[2023-09-22] VITALS (23 sets, daily range): BP systolic 103–136; BP diastolic 61–87; PULSE 74–87; RESP 11–17; TEMP 36.2–36.6; O2SAT 100; BMI 19.1
--- NOTE | ~2023-09-22 | CT_ITS ---
EXAMINATION: CT brain wo con DATE: 09/22/2023 15:18 INDICATION: Altered . TECHNIQUE: Computed tomography (CT) of the head was performed without intravenous contrast. The mA wa s adjusted according to patient size. Iterative reconstruction technique was employed. The dose-lengt h product was 605.33 mGy-cm. COMPARISON: None. FINDINGS: No acute intracranial hemorrhage or extra-axial fluid collection. No hydrocephalus, mass, or herniation. No acute ischemic infarct. Unremarkable dural venous sinus attenuation. No acute osseous abnormality. The aerated spaces are clear. Moderate atrophy and mild chronic white matter change. Atherosclerotic intracranial calcification. IMPRESSION: No acute intracranial process. Reviewed, dictated and finalized at location K.
--- NOTE | ~2023-09-22 | US_ITS ---
EXAMINATION: US abdomen limited DATE: 09/23/2023 16:44 INDICATION: Abdominal pain, cirrhosis and hepatic encephalopathy. TECHNIQUE: Multiple grayscale and Doppler ultrasound images of the abdomen were obtained. COMPARISON: None FINDINGS: Small amount of ascites in the suprapubic pelvis measuring up to 14 x 11 cm. Minimal fluid scattered amongst the bowel the left lower quadrant with no significant fluid in the right lower quadrant. IMPRESSION: 1. Small amount of ascites in the deep pelvis. Reviewed, dictated and finalized at location A.
--- NOTE | ~2023-09-22 | XR_ITS ---
EXAMINATION: XR chest 1V Exam Date/Time: 09/22/2023 15:20 CDT HISTORY: Altered Comparison: 01/31/2022. RESULT: Lines, tubes, and devices: Stimulator leads project over the lower thoracic spine. Lungs and pleura: Discoid atelectasis in the right lung base, otherwise clear. Cardiomediastinal silhouette: Stable. Other: No acute osseous or upper abdominal finding. IMPRESSION: Discoid atelectasis in the right lower lung. Reviewed, dictated and finalized at location K.
--- NOTE | 2023-09-22 14:03 | ECG_ITS ---
Measurements Intervals Rodney Rate: 82 P: -4 AR: 139 QRS: 66 QRSD: 85 T: 16 QT: 400 QTc: 468 Interpretive Statements SINUS RHYTHM NONSPECIFIC T-WAVE ABNORMALITY ABNORMAL ECG NO PREVIOUS ECG AVAILABLE FOR COMPARISON Electronically Signed On 09-23-2023 8:48:12 CDT by Jona Gaines M.D.
--- NOTE | 2023-09-22 14:05 | ED.AMS ---
HPI - Altered Mental Status General Chief Complaint: Altered Mental Status Stated Complaint: ams Time Seen by Provider: 09/22/23 14:02 Source: patient Mode of arrival: EMS Limitations: altered mental status History of Present Illness HPI narrative: 61 years old white male came to the emergency room by ambulance from home with his who is telling me that patient woke up this morning looks confused, restless, agitated,. Last time was seen in normal mental status last night before going to bed. History of liver cirrhosis with ascites, last paracentesis 4 days ago at [facility] patient on lactulose which he does not take. Patient never been to our emergency room before and usually goes to [facility]. is telling me that patient started on Cipro for abdominal infection August 21, 2023. Patient does smoke cigarettes and does not drink ,last drink was 1 month ago Related Data Allergies Allergy/AdvReac Type Severity Reaction Status Date / Time bupropion Allergy Hives Verified 09/22/23 17:29 Review of Systems Review of Systems: All systems reviewed & are unremarkable except as noted in HPI and below Exam Narrative: General appearance: Well-developed, well-nourished Skin: Pale, grayish Head: Normocephalic, nontraumatic Eyes: Clear conjunctiva ENT: Oropharynx normal, ears normal, nose normal Neck: Supple, nontender Chest and respiratory: Airway patent, no respiratory distress, no accessory muscle use Heart: Regular rate/rhythm Abdomen: Soft, mild arthritis, nontender, no organomegaly, quiet bowel sounds, right abdomen morphine pump Vascular: Normal peripheral pulses, normal capillary refill. Musculoskeletal: Normal range of motion, nontender back Neurologic: Alert and oriented to his name, age and year Course Vital Signs Vital signs: Vital Signs Temperature 36.2 C L 09/22/23 13:59 Pulse Rate 81 09/22/23 13:59 Respiratory Rate 16 09/22/23 13:59 Blood Pressure 114/87 09/22/23 13:59 Pulse Oximetry 100 09/22/23 13:59 Temperature 36.2 C L 09/22/23 13:59 Pulse Rate 84 09/22/23 18:01 Respiratory Rate 12 09/22/23 18:01 Blood Pressure 111/70 09/22/23 18:00 Pulse Oximetry 100 09/22/23 16:46 MDM - Altered Mental Status MDM Narrative Medical decision making narrative: Patient presents with confusion, history of liver cirrhosis with ascites, last paracentesis 4 days ago. Patient does not take his home lactulose. Physical examination showed pleasant man, awake, alert and oriented x3, name, age and year. He denies any symptoms except chronic back pain. Differential diagnosis hepatic encephalopathy, electrolyte imbalance, dehydration, urinary tract infection. Currently patient on Cipro for possible spontaneous bacterial peritonitis according to his report. Work-up today showed elevated PT 16.9 consistent with his liver cirrhosis, ABG on room air showed respiratory alkalosis elevated bilirubin 2.2 and liver enzymes urine analysis came back positive for hematuria. Patient did not have any catheterized urine in the ED. Currently on Cipro. Urine does not look bloody. Chest x-ray and CT scan of the head showed no acute abnormalities. In the ED patient received lactulose 60 g p.o. prior to admission. Hepatic encephalopathy is my concern. requested to keep patient at [facility] and declined to be transferred to [facility]. Differential Diagnosis Differential diagnosis: Likely altered mental status, hyponatremia and other (Dehydration, electrolyte imbalance) Medical Records Attestation: I reviewed the patient's medical records. Lab Data Attestation: I reviewed the p
[2023-09-22 14:57] LABS: Ammonia 80 umol/L (9-30); INR 1.3; Prothrombin Time 16.9 Seconds (11.1-14.7)
[2023-09-22 15:00] LABS: Acetaminophen < 10 ug/mL (10-30); Ethanol < 10 mg/dL (<10); Salicylate < 1.0 mg/dL (2-20)
[2023-09-22 15:01] LABS: Basophils Absolute Auto 0.1 K/mm3 (0.0-0.1); Basophils Percent Auto 0.7 % (0.2-1.2); Eosinophils Absolute Auto 0.2 K/mm3 (0-0.3); Eosinophils Percent Auto 2.6 % (0-4.4); Hemoglobin 10.3 g/dL (14.0-18.0); Immature Granulocyte Absolute 0.03 K/mm3 (0.00-0.031); Immature Granulocyte Percent A 0.4 % (0-0.5); Lymphocytes Absolute Auto 2.02 K/mm3 (0.9-3.2); Lymphocytes Percent Auto 25.2 % (18.3-44.2); Mean Corpuscular HGB Conc 32.2 g/dl (32-36); Mean Corpuscular Hemoglobin 35.9 pg (26-34); Mean Corpuscular Volume 111.5 fl (80-100); Mean Platelet Volume 10.1 fl (7.4-10.4); Monocytes Percent Auto 12.5 % (2.6-8.5); Neutrophils Absolute Auto 4.7 K/mm3 (1.3-6.7); Neutrophils Percent Auto 58.6 % (45.5-73.1); Platelet Count Result 270 k/mm3 (150-375); Red Blood Count 2.87 M/mm3 (4.6-6.20); Red Cell Distribution Width 16.1 % (11.5-14.5)
[2023-09-22 15:02] LABS: Alveolar/Arterial O2 Gradient 29.7 mmHg; Base Excess ABG 1.3 mEq/l (+/-2.0); Carboxyhemoglobin 1.2 % THb (0-2.0); Fractional Inspired Oxygen 21 %; HCO3 ABG 23.8 mEq/l (22.0-26.0); Methemoglobin ABG 0.1 %THb (0-1.5); Oxygen Content ABG 14.6 %vol (16.0-22.0); Oxygen Saturation ABG 97.2 % (95.0-100.0); Oxyhemoglobin 94.8 % THb (90.0-100.0); PCO2 ABG 30.6 mmHg (35.0-45.0); PO2 ABG 83.4 mmHg (80.0-100.0); PO2 FiO2 Ratio Arterial Blood 3.97 %; Reduced Hemoglobin 3.9 %THb (0-5.0); Total Hemoglobin 10.9 g/dL (12.0-18.0)
[2023-09-22 15:03] LABS: Modified Allen's Test Pass; Site Drawn RIGHT RADIAL; pH ABG 7.509 (7.350-7.450)
[2023-09-22 15:05] LABS: Appearance Urine Clear (Clear); Bacteria Urine None Seen /hpf; Bilirubin Urine Negative (Negative); Blood Urine 3+ (Negative); Color Urine Dark Yellow (Yellow); Glucose Urine UA Negative (Negative); Ketones Urine Trace mg/dL (Negative); Leukocyte Esterase Ur Trace LEU/UL (Negative); Nitrate Urine Negative (Negative); Non Pathogenic Casts 0-2; Protein Urine Negative (Negative); RBC Urine >100 /hpf (0-2); Specific Grav Ur 1.021 (1.001-1.035); Squamous Epithelial Cell Urine None seen /hpf (Few); WBC Urine 0-5 /hpf; pH Urine 6.5 (5.0-9.0)
[2023-09-22 15:06] LABS: Alanine Aminotransferase 18 U/L (6-50); Albumin Level 2.9 g/dL (3.5-5.1); Alkaline Phosphatase 132 U/L (38-126); Anion Gap 8 mmol/L (8-16); Aspartate Amino Transferase 49 U/L (17-59); Bilirubin,Total 2.2 mg/dL (0.2-1.3); Blood Urea Nitrogen 28 mg/dL (9-20); Calcium 8.6 mg/dL (8.4-10.2); Carbon Dioxide 22 mmol/L (22-30); Chloride 106 mmol/L (98-107); Estimated Glomerular Filt Rate > 60; Glucose 110 mg/dL (65-110); Potassium 4.4 mmol/L (3.4-5.0); Sodium 136 mmol/L (137-145)
[2023-09-22 15:15] LABS: Add Urine Microscopic? YES
[2023-09-22 15:17] LABS: Troponin I < 0.012 ng/mL (0.000-0.034)
[2023-09-22 15:27] LABS: Anisocytosis 1+ (NORMAL); Burr Cells 1+ (NORMAL); Macrocytosis 1+ (NORMAL); Platelet Estimate Adequate (Adequate); Schistocytes None Seen (NORMAL)
[2023-09-22 15:28] LABS: Creatine Kinase < 20 U/L (55-170)
[2023-09-22 15:31] LABS: Amphetamine Screen Urine Negative (Negative); Barbiturate Screen Urine Negative (Negative); Benzodiazepines Screen Urine Negative (Negative); Cannabinoid Screen Urine Negative (Negative); Cocaine Screen Urine Negative (Negative); Methadone Screen Urine Negative (Negative); Opiate Screen Urine Negative (Negative); Phencyclidine Screen Urine Negative (Negative)
[2023-09-22] MEDS: LACTULOSE 20 GM/30 ML UDC 60 GM PO (17:51)
--- NOTE | 2023-09-22 19:26 | PM.IMHP ---
H&P: HPI History of Present Illness Date/Time: 09/22/23 20:00 Chief Complaint: Altered mental status. Narrative: This is a 58-year-old male smoker with cirrhosis, gastroesophageal reflux disease, peptic ulcer disease, and chronic obstructive pulmonary disease, who presented to the emergency department via EMS from home for evaluation of altered mental status. The patient provides some history however is confused and his provides additional information with the patient's permission. He has recurring ascites and he has a paracentesis every couple of weeks. Sometime at the end of July it was felt that he may have spontaneous bacterial peritonitis and he has been on ciprofloxacin since that time. Last night he seemed to be in his usual state of health prior to going to sleep however this morning he was confused, restless, and agitated. Ammonia level was high in the ED and he is being admitted for hepatic encephalopathy. The patient admits that he is not always compliant with his lactulose. He is not on Xifaxan that I can see. He denies fever, chills, sweats, headache, sore throat, cough, chest pain, shortness a breath, nausea, vomiting, abdominal pain, diarrhea, dysuria, and gross hematuria. Review of Systems Review of Systems: Twelve systems were reviewed and are negative except for as per HPI. [facility] Past Medical History Medical History (Updated 09/22/23 @ 22:21 by Erin Falcon PA-C) Chronic obstructive pulmonary disease Cirrhosis Diverticulitis Gastroesophageal reflux disease Hepatic steatosis Hyperlipidemia Peptic ulcer disease Peripheral neuropathy Surgical History Surgical History (Updated 09/22/23 @ 22:19 by Erin Falcon PA-C) History of lumbar surgery Lumbar fusion L3-L5 with diskectomy at L4-L5. Family History Family History Father Cerebrovascular accident Chronic obstructive pulmonary disease Hypertension Sibling Hypertension Other Alcohol abuse by father Unknown family medical history Social History Social History (Updated 09/23/23 @ 00:11 by Erin Falcon PA-C) Social History: Surrogate medical decision maker: Livia Weston, spouse. Code status: Smoking packs per day: 1 Smoking cigarettes per day: 20.0 Smoking status: Current some day smoker Tobacco type: cigarettes Alcohol intake: former Substance use: never Lack of Transportation: No Lack of Food: Never True Current Housing: I Have Housing Concerned About Future Housing: No Difficulty Paying Gas/Electric Bills: No Difficulty Paying for Meds: No Currently Unemployed: No Education: High School Diploma/GED Difficulty w/ Childcare or Family Care: No Living arrangements: with family Additional living arrangements comments: Lives with spouse in [place]. 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 Spiritual care concerns: No Meds Home Medications and Allergies Home Medications Medication Instructions Recorded Confirmed Type ciprofloxacin HCl 500 mg tablet 500 mg PO DAILY 09/22/23 09/22/23 History (Cipro) furosemide 40 mg tablet (Lasix) 80 mg PO DAILY 09/22/23 09/22/23 History gabapentin 300 mg capsule 300 mg PO BID 09/22/23 09/22/23 History magnesium 500 mg tablet 500 mg PO DAILY 09/22/23 09/22/23 History midodrine 2.5 mg tablet 2.5 mg PO TID 09/22/23 09/22/23 History pantoprazole 40 mg tablet,delayed 40 mg PO QAM 09/22/23 09/22/23 History release spironolactone 100 mg tablet 200 mg PO DAILY 09/22/23 09/22/23 History Allergies Allergy/AdvReac Type Severity Reaction Status Date / Time bupropion Allergy Hives Verified 09/22/23 17:29 Vital Signs Vital Signs - 24 hr 09/22/23 13:59 09/22/23 14:03 09/22/23 14:26 Temperature 97.2 F L Pulse Rate 81 85 86 Respiratory Rate 16 14 Blood Pressure 114/87 Pulse Oximetry
--- NOTE | 2023-09-22 21:00 | ADMGEN ---
This patient, Tyrone Weston, was admitted to Medical Room 253-01. Patient/family oriented to hospital policies and general routines including ID bracelet, bed and alarms, visiting hours, pain management, procedures, bathroom and other care routines, personal items, smoking policy, room service/diet, and visiting hours. Information on how to activate the Rapid Response Team has been discussed. Patient/Family are encouraged to report perceived risks to care and to ask questions if they do not understand what they are told or what they should do.
[2023-09-23] VITALS (7 sets, daily range): BP systolic 105–127; BP diastolic 61–72; PULSE 78–88; RESP 14–18; TEMP 36.6–37.2; O2SAT 98–100
[2023-09-23 05:55] LABS: Ammonia 22 umol/L (9-30)
[2023-09-23 05:57] LABS: Hemoglobin 8.7 g/dL (14.0-18.0); Mean Corpuscular HGB Conc 32.2 g/dl (32-36); Mean Corpuscular Hemoglobin 34.7 pg (26-34); Mean Corpuscular Volume 107.6 fl (80-100); Mean Platelet Volume 10.2 fl (7.4-10.4); Platelet Count Result 231 k/mm3 (150-375); Red Blood Count 2.51 M/mm3 (4.6-6.20); Red Cell Distribution Width 16.1 % (11.5-14.5)
[2023-09-23 06:09] LABS: Alanine Aminotransferase 16 U/L (6-50); Albumin Level 2.6 g/dL (3.5-5.1); Alkaline Phosphatase 113 U/L (38-126); Anion Gap 3 mmol/L (8-16); Aspartate Amino Transferase 43 U/L (17-59); Bilirubin,Total 2.5 mg/dL (0.2-1.3); Blood Urea Nitrogen 25 mg/dL (9-20); Calcium 8.6 mg/dL (8.4-10.2); Carbon Dioxide 25 mmol/L (22-30); Chloride 107 mmol/L (98-107); Estimated CRCL calculation 76 ml/min; Estimated Glomerular Filt Rate > 60; Glucose 101 mg/dL (65-110); Magnesium 1.4 mg/dL (1.6-2.3); Potassium 3.9 mmol/L (3.4-5.0); Sodium 135 mmol/L (137-145)
[2023-09-23 06:10] LABS: Iron 106 ug/dL (49-181)
[2023-09-23 06:21] LABS: Percent Iron Saturation 77 % (20-50)
[2023-09-23 07:14] LABS: Folic Acid 11.3 ng/mL (2.76->20)
[2023-09-23 07:32] LABS: Free T4 Free Thyroxine Reflex 2.24 ng/dL (0.78-2.19)
[2023-09-23] MEDS: GABAPENTIN 300 MG CAPSULE PO ×2 (08:17→16:45)
[2023-09-23] MEDS: CIPROFLOXACIN 500 MG TAB PO (08:17)
[2023-09-23] MEDS: MAGNESIUM OXIDE 400 MG TABLET PO (08:17)
[2023-09-23] MEDS: SPIRONOLACTONE 50 MG TABLET 200 MG PO (08:17)
[2023-09-23] MEDS: MIDODRINE HCL 2.5 MG TABLET PO ×3 (08:18→16:45)
[2023-09-23] MEDS: FUROSEMIDE 40 MG TABLET 80 MG PO (08:18)
[2023-09-23] MEDS: PANTOPRAZOLE 40 MG TABLET PO (08:18)
[2023-09-23] MEDS: LACTULOSE 20 GM/30 ML UDC 30 GM PO ×2 (08:19→12:12)
[2023-09-23] MEDS: MAGNESIUM SULF 2 GM/WATER 50ML 2 GM/50 ML BAG IVPB (08:20)
[2023-09-23] MEDS: rifAXIMin 550 MG TABLET PO ×2 (08:21→20:28)
[2023-09-23 10:15] LABS: Ferritin > 2000.00 ng/mL (11.1-264)
--- NOTE | 2023-09-23 11:13 | PM.IMPN ---
Progress Note: A&P Assessment and Plan (1) Hepatic encephalopathy: Code(s): K76.82 - Hepatic encephalopathy Status: Acute Assessment and Plan: The patient presented to the emergency department for evaluation of confusion. He is afebrile with a normal white blood cell count. UDS negative. Ammonia level was 80 and presumed related to hepatic encephalopathy. Started on lactulose. He has abdominal pain and chronic ascites requiring frequent paracenteses. He is on daily ciprofloxacin for SBP prophylaxis. Consider SBP. Possibly dietary indiscretion. Ammonia level better. Mental status improved. Add Rifaximin. Perform paracentesis. Advance diet (2) Macrocytic anemia: Code(s): D53.9 - Nutritional anemia, unspecified Status: Acute Assessment and Plan: Macrocytic anemia which is likely chronic. B12 and folate level normal. Iron studies noted. [place] anemia related to cirrhosis. (3) Cirrhosis: Code(s): K74.60 - Unspecified cirrhosis of liver Status: Acute Assessment and Plan: As above. Continue Lasix and Spironolactone. Supportive care (4) Microscopic hematuria: Code(s): R31.29 - Other microscopic hematuria Status: Acute Assessment and Plan: Patient had a straight urinary catheterization probably resulting in the hematuria. (5) Chronic obstructive pulmonary disease: Code(s): J44.9 - Chronic obstructive pulmonary disease, unspecified Status: Acute Assessment and Plan: Stable. no wheezing. Follow Plan DVT Prophylaxis - SCDs Code status - Full Subjective Date/time seen: 09/23/23 11:13 Interval history: 58yo male with cirrhosis with ascites requiring frequent paracentesis, PUD and COPD here for altered mental status. Feeling better today. He does feel less confused. His last alcoholic drink was 2 months ago. Does smoke. Has been no recent change in his diet. He does have abdominal pain but patient unclear if this is chronic. His last paracentesis was 09/19/2023. Exam Narrative: AF 98.7 105/63 87 16 100%ra Gen -chronically ill-appearing male in no acute distress lying semi recumbent in bed Chest -left basilar crackles with decreased breath sounds the right base. Normal respiratory rate CV - RRR S1/S2 Abd -soft. Mildly protuberant. Diffuse tenderness without guarding or rebound. Positive bowel sounds Ext - No pedal edema Neuro - Alert and oriented x4. Nonfocal exam. Psych - Nml mood and affect Skin - Warm and dry Objective Data Vital Signs Vital Signs: Vital Signs - 24 hr 09/22/23 13:59 09/22/23 14:03 09/22/23 14:26 Temperature 97.2 F L Pulse Rate 81 85 86 Respiratory Rate 16 14 Blood Pressure 114/87 Pulse Oximetry 100 Oxygen Delivery 09/22/23 14:30 09/22/23 14:31 09/22/23 14:45 Temperature Pulse Rate 87 84 87 Respiratory Rate 12 13 15 Blood Pressure 103/68 Pulse Oximetry 100 Oxygen Delivery 09/22/23 14:46 09/22/23 15:00 09/22/23 15:01 Temperature Pulse Rate 84 86 82 Respiratory Rate 16 13 11 L Blood Pressure 136/77 112/66 Pulse Oximetry Oxygen Delivery 09/22/23 15:26 09/22/23 15:27 09/22/23 15:30 Temperature Pulse Rate 80 79 85 Respiratory Rate 17 16 15 Blood Pressure 119/61 Pulse Oximetry 100 100 100 Oxygen Delivery 09/22/23 15:31 09/22/23 16:46 09/22/23 17:02 Temperature Pulse Rate 81 81 79 Respiratory Rate 13 14 12 Blood Pressure 113/62 Pulse Oximetry 100 100 Oxygen Delivery 09/22/23 17:15 09/22/23 17:16 09/22/23 17:34 Temperature Pulse Rate 76 74 79 Respiratory Rate 12 13 15 Blood Pressure 103/67 Pulse Oximetry Oxygen Delivery 09/22/23 17:49 09/22/23 18:00 09/22/23 18:01 Temperature Pulse Rate 87 86 84 Respiratory Rate 15 12 12 Blood Pressure 111/70 Pulse Oximetry Oxygen Delivery 09/22/23 19:15 09/22/23 21:12 09/22/23 21:39 Temperature 97.8 F Pul
--- NOTE | 2023-09-23 15:55 | PC.NURSE ---
Care, assessment and medications performed by Lita Reveles Student Nurse/[facility] under direct supervision of professional nursing tutor and hospital staff. Charting reviewed and agree with same. Asked patient and family at bedside if any concerns. Patient and family both state they have no concerns and no questions at this time.
[2023-09-23] MEDS: SODIUM CHLORIDE 0.9% IV 1,000 ML 100 ML IV CONT (16:45)
[2023-09-24] VITALS: BP 105/63; PULSE 79; RESP 18; TEMP 36.8; O2SAT 98
[2023-09-24 04:00] VITALS: BP 110/52; PULSE 69; RESP 18; TEMP 37.1; O2SAT 100
[2023-09-24 06:47] LABS: Hematocrit 27.5 % (42.0-52.0); Mean Corpuscular HGB Conc 32.7 g/dl (32-36); Mean Corpuscular Hemoglobin 35.4 pg (26-34); Mean Corpuscular Volume 108.3 fl (80-100); Mean Platelet Volume 10.2 fl (7.4-10.4); Platelet Count Result 228 k/mm3 (150-375); Red Blood Count 2.54 M/mm3 (4.6-6.20); Red Cell Distribution Width 15.9 % (11.5-14.5); White Blood Count 7.8 K/mm3 (4.5-10.0)
[2023-09-24 08:00] VITALS: BP 114/72; PULSE 72; RESP 18; TEMP 36.3; O2SAT 100
[2023-09-24] MEDS: MAGNESIUM OXIDE 400 MG TABLET PO (08:39)
[2023-09-24] MEDS: SPIRONOLACTONE 50 MG TABLET 200 MG PO (08:39)
[2023-09-24] MEDS: rifAXIMin 550 MG TABLET PO (08:39)
[2023-09-24] MEDS: GABAPENTIN 300 MG CAPSULE PO (08:39)
[2023-09-24] MEDS: PANTOPRAZOLE 40 MG TABLET PO (08:39)
[2023-09-24] MEDS: MIDODRINE HCL 2.5 MG TABLET PO ×2 (08:39→13:37)
[2023-09-24] MEDS: LACTULOSE 20 GM/30 ML UDC 30 GM PO (08:40)
[2023-09-24] MEDS: FUROSEMIDE 40 MG TABLET 80 MG PO (08:40)
[2023-09-24] MEDS: CIPROFLOXACIN 500 MG TAB PO (08:43)
[2023-09-24 12:00] VITALS: BP 125/70; PULSE 71; RESP 19; TEMP 36.7; O2SAT 100
--- NOTE | 2023-09-24 12:10 | PM.DS ---
DS: Admitting Diagnosis Discharge Date 09/24/23 Admitting Diagnosis Altered mental status DS: Discharge Diagnosis Discharge Diagnosis (1) Hepatic encephalopathy: Code(s): K76.82 - Hepatic encephalopathy Status: Acute (2) Macrocytic anemia: Code(s): D53.9 - Nutritional anemia, unspecified Status: Acute (3) Cirrhosis: Code(s): K74.60 - Unspecified cirrhosis of liver Status: Acute (4) Microscopic hematuria: Code(s): R31.29 - Other microscopic hematuria Status: Acute (5) Chronic obstructive pulmonary disease: Code(s): J44.9 - Chronic obstructive pulmonary disease, unspecified Status: Acute DS: Summary Hospital Course Reason for hospitalization: 58yo male with cirrhosis with ascites requiring frequent paracentesis, PUD and COPD here for altered mental status. Please see H&P for details. Hospital Course: The patient presented to the emergency department for evaluation of confusion. He was afebrile with a normal white blood cell count. UDS negative. CXR showing atelectasis. CT brain showing no acute findings. Ammonia level was 80 and presumed related to hepatic encephalopathy. He was started on lactulose. He has chronic ascites requiring frequent paracenteses. He is on daily ciprofloxacin for SBP prophylaxis. His last paracentesis was about 4 days prior to admission. We considered SBP as the cause of the hepatic encephalopathy but abdominal ultrasound showing only minimal asictes and unable to obtain fluid. More likely, confusion related to possibly dietary indiscretion. Mental status improved. We added Rifaximin. He had a macrocytic anemia which is likely chronic from his liver disease. B12 and folate level normal. Iron studies noted and related to cirrhosis. Feels well today. No complaints. He overall did well and was able to be discharged on 09/24/23. Status at Discharge Cognitive/behavioral status at discharge: stable Time Spent with Patient Time attestation: Total time spent providing and/or coordinating discharge services: 35 minutes Time spent: Greater than 30 minutes Exam Narrative: AF 98.1 125/70 71 19 100%ra Gen - NARD Chest -mild left basilar crackles o/w clear. CV - RRR S1/S2 Abd -soft. NT. +BS. Pain pump right abdomen Ext - No pedal edema Neuro - Alert and apprpriate Psych - Nml mood and affect Skin - Warm and dry DS: Data Data Completed and Pending Pending studies at discharge: Pending at discharge 09/23/23 11:17 Cytology [PTH] Routine Labs on day of discharge: Labs from last 24 hours 09/24/23 06:05 WBC 7.8 RBC 2.54 L Hgb 9.0 L Hct 27.5 L MCV 108.3 H MCH 35.4 H MCHC 32.7 RDW 15.9 H Plt Count 228 MPV 10.2 Discharge Plan Discharge Attending physician on discharge: Jon Leyva Discharging Clinician: Jon Leyva Anticipated Discharge Date/Time: 09/24/23 12:25 Patient Disposition: Home, Self-Care Activity: as tolerated Diet: low sodium Discharge Instructions: Take precautions to avoid falls. Rise slowly from a lying or sitting position. Pause before standing or walking. Contact your doctor or call 911 and come to the Emergency Room if you have fevers or other worrisome symptoms. You will be going home with lactulose. You can adjust how often you take this medication but you need to ensure 2-3 soft BMs per day. Follow-up with your primary care provider in 1-2 weeks. Please call for appointment. Thank you for using [facility] for your health care needs. Patient Instructions: Antibiotic Form, How to Stop Smoking (DC) Stand Alone Forms: General Discharge Information Follow-up/Referrals: Edd Morse DO [Primary Care Provider] - Call for Appointment Discharge Medications: New lactulose 20 gram/30 mL Solution 30 g PO TID Qty: 2880 0RF Xifaxan 550 mg Tablet 550 mg PO Q12HR Qty: 60 1RF Continued spironolacto
--- NOTE | 2023-09-24 12:39 | PC.NURSE ---
On 09/24/23, the student, [Cadence Cooper], provided care and completed [facility] documentation on this patient. I have reviewed the student's documentation and agree with the findings.
== END 2023-09-24 14:05 | disposition home or self-care (01) | DRG 442 ==
LOC: ANHED 18:43 → ANH2MED 20:11
PROVIDERS: Physician Assistant; Admitting Provider Internal Medicine; Emergency Provider Emergency Medicine; PCP Internal Medicine; Visit Provider Internal Medicine
DX: K76.82 Hepatic encephalopathy (principal); R18.8 Other ascites; K74.60 Unspecified cirrhosis of liver; D53.9 Nutritional anemia, unspecified; J44.9 Chronic obstructive pulmonary disease, unspecified; E78.5 Hyperlipidemia, unspecified; K21.9 Gastro-esophageal reflux disease without esophagitis; K27.9 Peptic ulcer, site unspecified, unspecified as acute or chronic, without hemorrhage or perforation; K57.30 Diverticulosis of large intestine without perforation or abscess without bleeding; G62.9 Polyneuropathy, unspecified; F17.210 Nicotine dependence, cigarettes, uncomplicated
CPT/HCPCS: 36415; 36600; 70450; 71045; 76705; 80053; 80307; 81001; 82140; 82375; 82550; 82607; 82728; 82746; 82805; 83050; 83540; 83550; 83735; 84439; 84443; 84484; 85025; 85027; 85610; 85730; 93005; 97161; 97165; 99285; A9270; G0378; J3475; J7030

== ENCOUNTER 2024-05-19 11:19 | Outpatient (CLI) | payer OTHER, SELFPAY ==
--- NOTE | ~2024-05-19 | XR_ITS ---
Right Shoulder Technique: AP and scapular Y views were obtained. Clinical History: Pain Findings: No fracture or dislocation is seen. Osseous alignment is anatomic. The glenohumeral and acr omioclavicular joint spaces are preserved. Soft tissues are unremarkable. Impression: Unremarkable right shoulder radiographs. Reviewed, dictated and finalized at [facility]. Impression: Unremarkable right shoulder radiographs.
--- NOTE | ~2024-05-19 | XR_ITS ---
Left Shoulder Technique: AP and scapular Y views were obtained. Clinical History: Pain Findings: No fracture or dislocation is seen. Osseous alignment is anatomic. The glenohumeral and acr omioclavicular joint spaces are preserved. Soft tissues are unremarkable. Impression: Unremarkable left shoulder radiographs. Reviewed, dictated and finalized at [facility]. Impression: Unremarkable left shoulder radiographs.
== END 2024-05-19 11:20 ==
PROVIDERS: PCP Internal Medicine; Visit Provider Internal Medicine
DX: M25.512 Pain in left shoulder (principal); M25.511 Pain in right shoulder
CPT/HCPCS: 73030

== ENCOUNTER 2024-07-07 09:38 | Outpatient (CLI) | payer OTHER, SELFPAY ==
[2024-07-07 19:17] LABS: Basophils Absolute Auto 0.1 K/mm3 (0.0-0.1); Basophils Percent Auto 1.3 % (0.2-1.2); Eosinophils Absolute Auto 0.6 K/mm3 (0-0.3); Eosinophils Percent Auto 7.5 % (0-4.4); Hematocrit 43.1 % (42.0-52.0); Hemoglobin 13.8 g/dL (14.0-18.0); Immature Granulocyte Absolute 0.02 K/mm3 (0.00-0.031); Immature Granulocyte Percent A 0.3 % (0-0.5); Lymphocytes Absolute Auto 3.02 K/mm3 (0.9-3.2); Lymphocytes Percent Auto 40.4 % (18.3-44.2); Mean Corpuscular Hemoglobin 33.7 pg (26-34); Mean Corpuscular Volume 105.1 fl (80-100); Mean Platelet Volume 10.9 fl (7.4-10.4); Monocytes Percent Auto 12.8 % (2.6-8.5); Neutrophils Absolute Auto 2.8 K/mm3 (1.3-6.7); Neutrophils Percent Auto 37.7 % (45.5-73.1); Platelet Count Result 308 k/mm3 (150-375); Red Cell Distribution Width 15.6 % (11.5-14.5); White Blood Count 7.5 K/mm3 (4.5-10.0)
[2024-07-07 19:21] LABS: INR 1.2
[2024-07-07 19:35] LABS: Alanine Aminotransferase 18 U/L (6-50); Albumin Level 3.4 g/dL (3.5-5.1); Alkaline Phosphatase 163 U/L (38-126); Anion Gap 8 mmol/L (4-12); Aspartate Amino Transferase 56 U/L (17-59); Blood Urea Nitrogen 17 mg/dL (9-20); Carbon Dioxide 28 mmol/L (22-30); Chloride 104 mmol/L (98-107); Estimated Glomerular Filt Rate > 60; Glucose 100 mg/dL (65-110); Potassium 4.1 mmol/L (3.4-5.0); Sodium 140 mmol/L (137-145)
[2024-07-07 19:48] LABS: Hypochromasia 1+; Macrocytosis 1+ (NORMAL); Platelet Estimate Adequate (Adequate)
[2024-07-07 19:49] LABS: Schistocytes None Seen
== END 2024-07-07 09:39 | disposition home or self-care (01) ==
LOC: ANHGOSHLAB 09:39
PROVIDERS: PCP Internal Medicine; Visit Provider Internal Medicine
DX: K74.60 Unspecified cirrhosis of liver (principal); D53.9 Nutritional anemia, unspecified
CPT/HCPCS: 36415; 80053; 85025; 85610

== ENCOUNTER 2024-08-04 09:24 | Outpatient (CLI) | payer SELFPAY ==
[2024-08-04 10:08] LABS: INR 1.2; Prothrombin Time 15.5 Seconds (11.1-14.7)
[2024-08-04 10:09] LABS: Partial Thromboplastin Time 33.5 Seconds (22.3-36.8)
== END 2024-08-04 09:25 | disposition home or self-care (01) ==
PROVIDERS: Anesthesiology; PCP Internal Medicine; Visit Provider Dentist
DX: K74.60 Unspecified cirrhosis of liver (principal); Z01.818 Encounter for other preprocedural examination
CPT/HCPCS: 36415; 85610; 85730

== ENCOUNTER 2024-08-05 02:14 | Day surgery (SDC) | payer OTHER, SELFPAY ==
[2024-07-30 10:19] VITALS: BMI 19.5
--- NOTE | 2024-07-30 11:14 | PC.NURSE ---
Report to the Outpatient Waiting Room, entrance under the green pavilion located off [facility], at 0630 on 08-05-24. Planned Procedure Time: 0830.? Time changes happen often and if your time is changed the preop area will call you the afternoon before. - You and your visitor will be asked to self-screen and do not enter if you have any COVID symptoms. Please call surgeon if you need to reschedule. - A mask is optional within the hospital at this time. Patients may have clear liquids (water, carbonated beverages, clear teas, apple juice) until 3 hours prior to surgery with a maximum of 20 ounces. 0530 - No food from midnight until time of surgery and no smoking - Infants may have breast milk until 4 hours before surgery, formula 6 hours prior to surgery. - Children will be allowed to drink immediately following surgery.? If applicable, please bring a bottle or sippy cup to assist with drinking. Juice, water, soda, and popsicles are readily available.? For infants on formula, please bring formula the day of surgery.? Pacifiers are allowed. Take only the following medications with a SIP of water on the morning of surgery: None DO NOT STOP ANY OF YOUR OTHER PRESCRIPTION MEDICATIONS PRIOR TO SURGERY EXCEPT THE FOLLOWING Medications to discontinue per physician: N/A Please no make-up, nail uzbek, hairspray, perfume, deodorant, or body powder the day of surgery.? No jewelry (including any body piercings) or valuables the day of surgery, leave them at home.? Please take a shower or bath the night before, or the morning of, surgery with an antibacterial soap.? Wear comfortable, loose fitting clothing.? Children are encouraged to wear pajamas. - Jewelry must be removed prior to entering the operating room.? Rings and piercings that are not removed may be cut off. - The hospital will not accept responsibility for valuables.? - Please leave all valuables, including medications, at home the day of surgery. If you are going home after surgery, a licensed high lift driver must drive you home.? - NO public transportation without another adult if you receive anesthesia. - We recommend that an adult stay with you for 24 hours following discharge. - We also recommend that you do not drive, make important decision, drink alcoholic beverages, or take any drugs that were not prescribed by your health care provider for at least 24 hours after your discharge time. For Pediatric surgeries, we recommend two adults accompany the child home. Follow any additional instructions given to you from your surgeon. Telephone instructions given to Tyrone Weston and asked if any additional questions and then verbalized understanding. Patient advised to call surgeon office or pre surgery nurse liaison [phone] if any additional questions.
[2024-08-05] VITALS (9 sets, daily range): BP systolic 110–146; BP diastolic 73–90; PULSE 60–90; RESP 14–18; TEMP 36.4–36.7; O2SAT 97–100
[2024-08-05] MEDS: LACTATED RINGERS 1,000 ML 30 ML IV CONT (07:00)
--- NOTE | 2024-08-05 07:29 | WPDHPUPDATE1 ---
History and Physical Update Update Date/Time: 08/05/24 07:29 History and Physical has been reviewed, including an updated exam of the patient. There are NO changes in the patient's condition. Risks, benefits, and alternatives have been discussed and questions answered. Patient agrees to proceed with procedure.
--- NOTE | 2024-08-05 07:29 | PM.IMHP ---
H&P: HPI History of Present Illness Date/Time: 08/05/24 07:29 Chief Complaint: bad teeth PMFSH Past Medical History Medical History Acquired hypothyroidism Alcohol abuse Alcohol use disorder Alcoholic cirrhosis of liver Cervical radiculopathy Chronic back pain Pain pump in the right lower quadrant which is nonfunctioning. Patient has a spinal cord stimulator as well. Chronic obstructive pulmonary disease Cirrhosis Diverticulitis (~01/2018) Diverticulitis Encounter for end of life care Gastroesophageal reflux disease GERD (gastroesophageal reflux disease) Hepatic steatosis Hepatic steatosis Hyperlipidemia Insomnia Peptic ulcer disease (~01/2018) Duodenal ulcers noted on EGD per Dr. Maldonado. Peptic ulcer disease Peripheral neuropathy Peripheral neuropathy Spinal cord stimulator status Tobacco dependence Surgical History Surgical History History of appendectomy History of lumbar discectomy (~1995) L4-L5. History of lumbar fusion (~2009) L3-L5. History of lumbar surgery Lumbar fusion L3-L5 with diskectomy at L4-L5. History of vasectomy Family History Family History Mother Patient's mother is in good health Urinary incontinence concurrent with and due to female genital prolapse Father Family history of malignant neoplasm of esophagus Patient's father is Family history of malignant neoplasm Cerebrovascular accident Father Cerebrovascular accident Chronic obstructive pulmonary disease Hypertension Sibling Hypertension Other Alcohol abuse by father Family history of alcoholism Unknown family medical history Social History Social History Social History: Surrogate medical decision maker: Livia Weston, spouse. Code status: Smoking packs per day: 2 Smoking cigarettes per day: 40.0 Years smoked: 45 Smoking pack-years: 90.00 Smoking status: Current every day smoker Tobacco type: cigarettes Second hand tobacco smoke exposure: Yes (spouse smokes) Additional smoking assessment comments: currently smokes 1 pack per day Alcohol intake: former Alcohol use details: Beer, vodka (cirrhosis of the liver) quit Jul 2023 Substance use: never Substance use type: does not use Other substance usage details: Per pt uses edibles every once and a while Do You Feel Safe in your Home?: Yes Lack of Transportation: No Lack of Food: Never True Current Housing: I Have Housing Concerned About Future Housing: No Difficulty Paying Gas/Electric Bills: No Difficulty Paying for Meds: No Currently Unemployed: No Education: High School Diploma/GED Difficulty w/ Childcare or Family Care: No Living arrangements: with family Additional living arrangements comments: Lives with spouse in [place]. 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 Gender identity (if verbalized by the patient): Male Sexual Orientation (if Verbalized by the Patient): Straight or Heterosexual Spiritual care concerns: No Agree to blood products: Yes Meds Home Medications and Allergies Home Medications Medication Instructions Recorded Confirmed Type ciprofloxacin HCl 500 mg tablet 500 mg PO DAILY 09/22/23 08/05/24 History (Cipro) furosemide 40 mg tablet (Lasix) 80 mg PO DAILY 09/22/23 08/05/24 History midodrine 2.5 mg tablet 2.5 mg PO TID PRN Hypotension 09/22/23 08/05/24 History spironolactone 100 mg tablet 100 mg PO DAILY 09/22/23 08/05/24 History rifaximin 550 mg tablet (Xifaxan) 550 mg PO Q12HR #60 tabs 09/24/23 08/05/24 Rx gabapentin 300 mg capsule See Rx Instructions .Route 06/24/24 08/05/24 Rx .COMPLEX #180 caps pantoprazole 40 mg tablet,delayed See Rx Instructions .Route
--- NOTE | 2024-08-05 08:21 | WPDANESEPPF ---
Anes - Initial Pre Proc Eval Procedure: Operation Date: 08/05/24 08:30 Proposed Procedures p Extraction Multiple Teeth - Miky Dunlap DMD Date/Time: 08/05/24 08:21 Surgeon: Miky Dunlap DMD Pre Op Diagnosis: Dental caries 2,4,6,8,9,11,12,13, 18-22, - Patient Data Age: 59 Gender: M Height: 1.91 m Weight: 70.2 kg Last Vital Signs Temp 36.7 C 08/05/24 07:07 Pulse 88 08/05/24 07:07 Resp 18 08/05/24 07:07 BP 123/73 08/05/24 07:07 Pulse Ox 97 08/05/24 07:07 O2 Del Method Room Air 08/05/24 07:07 Allergies Allergy/AdvReac Type Severity Reaction Status Date / Time bupropion Allergy Intermediate HIVES Verified 08/05/24 06:53 Home Medications Medication Instructions Recorded Confirmed Type ciprofloxacin HCl 500 mg tablet 500 mg PO DAILY 09/22/23 08/05/24 History (Cipro) furosemide 40 mg tablet (Lasix) 80 mg PO DAILY 09/22/23 08/05/24 History midodrine 2.5 mg tablet 2.5 mg PO TID PRN Hypotension 09/22/23 08/05/24 History spironolactone 100 mg tablet 100 mg PO DAILY 09/22/23 08/05/24 History rifaximin 550 mg tablet (Xifaxan) 550 mg PO Q12HR #60 tabs 09/24/23 08/05/24 Rx gabapentin 300 mg capsule See Rx Instructions .Route 06/24/24 08/05/24 Rx .COMPLEX #180 caps pantoprazole 40 mg tablet,delayed See Rx Instructions .Route 06/24/24 08/05/24 Rx release .COMPLEX #90 tabs lactulose 20 gram/30 mL oral 30 g PO TID PRN Encephalopathy 07/30/24 08/05/24 History solution Patient hx anesthesia problems: none Family hx anesthesia problems: none Results Review: All pre-operative results and documents have been reviewed as part of the pre-operative evaluation. [facility] Past Medical History Medical History Acquired hypothyroidism Alcohol abuse Alcohol use disorder Alcoholic cirrhosis of liver Cervical radiculopathy Chronic back pain Pain pump in the right lower quadrant which is nonfunctioning. Patient has a spinal cord stimulator as well. Chronic obstructive pulmonary disease Cirrhosis Diverticulitis (~01/2018) Diverticulitis Encounter for end of life care Gastroesophageal reflux disease GERD (gastroesophageal reflux disease) Hepatic steatosis Hepatic steatosis Hyperlipidemia Insomnia Peptic ulcer disease (~01/2018) Duodenal ulcers noted on EGD per Dr. Maldonado. Peptic ulcer disease Peripheral neuropathy Peripheral neuropathy Spinal cord stimulator status Tobacco dependence Surgical History Surgical History History of appendectomy History of lumbar discectomy (~1995) L4-L5. History of lumbar fusion (~2009) L3-L5. History of lumbar surgery Lumbar fusion L3-L5 with diskectomy at L4-L5. History of vasectomy Family History Family History Mother Patient's mother is in good health Urinary incontinence concurrent with and due to female genital prolapse Father Family history of malignant neoplasm of esophagus Patient's father is Family history of malignant neoplasm Cerebrovascular accident Father Cerebrovascular accident Chronic obstructive pulmonary disease Hypertension Sibling Hypertension Other Alcohol abuse by father Family history of alcoholism Unknown family medical history Social History Social History Social History: Surrogate medical decision maker: Livia Weston, spouse. Code status: Smoking packs per day: 2 Smoking cigarettes per day: 40.0 Years smoked: 45 Smoking pack-years: 90.00 Smoking status: Current every day smoker Tobacco type: cigarettes Second hand tobacco smoke exposure: Yes (spouse smokes) Additional smoking assessment comments: currently smokes 1 pack per day Alcohol intake: former Alcohol use details: Beer, vodka (cirrhosis of the liver) quit Jul
[2024-08-05] MEDS: CLINDAMYCIN 600 MG/D5W 50 ML 600 MG/50 ML PIGGYBACK 100 MG IVPB (08:56)
[2024-08-05] MEDS: LIDOCAINE 2%-EPI (FOR DENTAL BLOCK) 1.7 ML CARTRIDGE INFILTRATE (09:13)
--- NOTE | 2024-08-05 09:50 | W.PM.PROC2 ---
Procedure Note - Detailed Date of Procedure 08/05/24 Pre-op Diagnosis Dental caries 2,4,6,8,9,11,12,13, 18-22, 24-31 Post-op Diagnosis Same Procedure Performed removal of above mentioned teeth and alveoloplasty Surgeon Miky Dunlap, [facility] Anesthesia General Indications nonrestorable teeth Description of Procedure Patient was encountered in the operating room under the care of the anesthesia service who induced a general anesthetic. Patient was draped in the usual manner for an intraoral surgical procedure. Oral cavity was suctioned free of debris and throat pack placed. Local anesthetic administered. All remaining maxillary teeth were then removed using elevator and forceps technique without complication. Sockets curetted free of debris and irrigated with copious amounts of sterile saline. Of yellow plasty was completed and the wound was closed using 4 0 chromic gut suture in continuous fashion. Attention was turned to the mandible where a sulcular incision was made and all remaining teeth were removed using elevator and forceps technique without complication. Valvuloplasty was completed with rongeur. Wound was thoroughly irrigated and then closed using 4 0 chromic gut suture in continuous fashion. The oral cavity was suctioned free of debris and the throat pack was removed. Dentures inserted and gauze packs place. Care of the patient returned to the anesthesia service
[2024-08-05] MEDS: oxyCODONE (*CRX) 5 MG/5 ML ORAL SOLN IR PO (11:30)
== END 2024-08-05 12:10 | disposition home or self-care (01) ==
PROVIDERS: PCP Internal Medicine; Visit Provider Dentist
PROC: (CPT 41899; principal; 2024-08-05 08:30)
DX: K02.9 Dental caries, unspecified (principal); E03.9 Hypothyroidism, unspecified; K70.30 Alcoholic cirrhosis of liver without ascites; K21.9 Gastro-esophageal reflux disease without esophagitis; E78.5 Hyperlipidemia, unspecified; G62.9 Polyneuropathy, unspecified; Z98.1 Arthrodesis status; F17.210 Nicotine dependence, cigarettes, uncomplicated
CPT/HCPCS: 41899 ×21; A9270; J0330; J1100; J2250; J2371; J2405; J2704; J3010; J7120

== ENCOUNTER 2024-09-24 09:56 | Outpatient (CLI) | payer OTHER, SELFPAY ==
[2024-09-24 18:37] LABS: Basophils Absolute Auto 0.1 K/mm3 (0.0-0.1); Eosinophils Absolute Auto 0.5 K/mm3 (0-0.3); Eosinophils Percent Auto 6.5 % (0-4.4); Hematocrit 41.5 % (42.0-52.0); Hemoglobin 13.7 g/dL (14.0-18.0); Immature Granulocyte Absolute 0.01 K/mm3 (0.00-0.031); Immature Granulocyte Percent A 0.1 % (0-0.5); Lymphocytes Absolute Auto 2.59 K/mm3 (0.9-3.2); Lymphocytes Percent Auto 36.7 % (18.3-44.2); Mean Corpuscular Hemoglobin 34.4 pg (26-34); Mean Corpuscular Volume 104.3 fl (80-100); Mean Platelet Volume 10.2 fl (7.4-10.4); Monocytes Absolute Auto 0.9 K/mm3 (0.1-0.6); Monocytes Percent Auto 12.2 % (2.6-8.5); Neutrophils Absolute Auto 3.1 K/mm3 (1.3-6.7); Neutrophils Percent Auto 43.5 % (45.5-73.1); Platelet Count Result 338 k/mm3 (150-375); Red Blood Count 3.98 M/mm3 (4.6-6.20); Red Cell Distribution Width 15.5 % (11.5-14.5); White Blood Count 7.1 K/mm3 (4.5-10.0)
[2024-09-24 18:53] LABS: Alanine Aminotransferase 21 U/L (6-50); Albumin Level 3.5 g/dL (3.5-5.1); Alkaline Phosphatase 180 U/L (38-126); Anion Gap 8 mmol/L (4-12); Aspartate Amino Transferase 57 U/L (17-59); Bilirubin,Total 0.7 mg/dL (0.2-1.3); Blood Urea Nitrogen 21 mg/dL (9-20); Calcium 8.7 mg/dL (8.4-10.2); Carbon Dioxide 29 mmol/L (22-30); Chloride 104 mmol/L (98-107); Estimated Glomerular Filt Rate > 60; Glucose 103 mg/dL (65-110); Potassium 4.3 mmol/L (3.4-5.0); Sodium 141 mmol/L (137-145)
[2024-09-24 19:17] LABS: Prostate Specific Antigen 0.2 ng/mL (< OR = 4.0)
== END 2024-09-24 09:57 | disposition home or self-care (01) ==
PROVIDERS: PCP Internal Medicine; Visit Provider Internal Medicine
DX: K74.60 Unspecified cirrhosis of liver (principal); D64.9 Anemia, unspecified; E03.9 Hypothyroidism, unspecified; Z12.5 Encounter for screening for malignant neoplasm of prostate
CPT/HCPCS: 36415; 80053; 84153; 84443; 85025; G0103

== ENCOUNTER → 2024-12-02 11:31 | Outpatient (REF) | payer OTHER, SELFPAY | LOC: ANHLAB 11:31 | PROVIDERS: PCP Internal Medicine; Visit Provider Plastic Surgery | DX: L72.0 Epidermal cyst (principal); M79.89 Other specified soft tissue disorders | CPT/HCPCS: 88305 ==

== ENCOUNTER 2025-04-15 10:50 | Outpatient (CLI) | payer OTHER, SELFPAY ==
--- NOTE | ~2025-04-15 | CT_ITS ---
CT Scan of the Chest without Contrast: Clinical Indication: Lung cancer screening, nicotine dependence Technique: Contiguous sections were acquired throughout the chest without intravenous contrast. Dose reduction technique was used on this scan by utilizing automated exposure control and iterative recon struction technique. The dose-length product (DLP) was 76.03 mGy-cm. COMPARISON: 01/31/2022 Findings: There is no evidence of any significant mediastinal, hilar or axillary lymphadenopathy. Coronary thu ry calcifications are present. There is no evidence of pleural or pericardial effusion. The lungs are clear. No pulmonary nodules or infiltrates are noted. Mild emphysema present. Images through the upper abdomen reveal nodular contour of the liver, compatible cirrhosis. There are new compression fracture deformities of T11, T12, L1, L2, and probably T9. Impression: Lung RADS 2-S: Benign appearance 12 month follow-up screening CT advised. Mild emphysema. Multiple compression fractures of the spine, as detailed above, age-indeterminate, but new from prior exam. Cirrhotic liver. Reviewed, dictated and finalized at location . Impression: Lung RADS 2-S: Benign appearance 12 month follow-up screening CT advised. Mild emphysema. Multiple compression fractures of the spine, as detailed above, age-indetermina te, but new from prior exam. Cirrhotic liver.
--- OUTSIDE RECORDS SUMMARY | 2025-04-15 10:55 | XMS_ITS | Continuity of Care Document ---
Author Organization [facility] Address [address] [place] [address] Phone Care Team Providers Care Line Director Name Role Phone Ramon Schultz MD Unavailable Unavailable Procedures Procedure Date Work/medical disability examination JEAN MARIE Advance Directives Directive Yes / No Effective Date File Name No Information Encounters Encounter Description Practice Location Reason(s) For Visit Diagnoses Date Provider Providers Copied on Encounter Work/medical disability examination JEAN MARIE [facility], [address] [place] [address], [id number], tel:[phone] [facility] 1 Antoine Navarro. [address] [place] [address], [id number] , . tel: [phone] Family History Family Member Type Diagnosis Age At Onset No Information Payers Payer name Insurance type Covered democrat ID Authoriza tiliv(s) [employer] [facility] [id number] Social History Type Description Quantity Date Captured [...]
--- OUTSIDE RECORDS SUMMARY | 2025-04-15 10:55 | XMS_ITS | Clinical Summary ---
Author Organization [facility] Address [address] [place] [address] Care Team Providers Care Transcription Name Role Phone Edd Morse DO Primary Care Provider [phone] Source Comments [facility],non-owned Affiliates and Associated Physician Practices is amultiple site organization consisting of ambulatory clinics and hospital sitesin [place], [place], [place] and [place]. This disclosure is being madepursuant to the Care Everywhere program and may not contain all information available regarding this patient. Last updated 18.[facility] Allergies Active Allergy Reactions Criticality Noted Date Comments Bupropion Urticaria Medium 09/10/2019 Medications * Be aware that medications may not be up to date on this document. Alwaysverify current medications with the patient. pantoprazole EC (PROTONIX) 40 MG tablet once daily 07/04/20 20 Active gabapentin (NEURONTIN) 300 MG capsule 1 (one) capsule 2 times daily 06/26/20 21 Active ciprofloxacin (Cipro) 500 MG tabletIndications: Spontaneous Bacterial Peritonitis Take 1 (one) tablet by mouth once daily Reasons: Spontaneous Bacterial Peritonitis 90 tablet 3 12/18/19 25 026 Active rifAXIMin (Xifaxan) 550 MG tabletIndications: Hepatic Encephalopathy Take 1 (one) tablet by mouth 2 times daily Reasons: Impaired Brain Function due to Liver Disease 180 tablet 3 12/18/19 25 Active lactulose (Chronulac) 10 GM/15ML solution Take 45 mL by mouth once daily as needed for Constipation Add an additional doses up to every 4 hours to achieve 2-3 good bowel movements a day 4054.28 mL 11 02/10/20 25 Active Active Problems Problem Noted Date Diagnosed Date MAYRA (acute kidney injury) 08/20/2024 Severe malnutrition 12/04/2023 Refractory ascites 10/09/2023 Portal hypertension 08/22/2023 SBP (spontaneous bacterial peritonitis) 08/22/20 23 Neuropathy 08/22/2023 Hepatic encephalopathy 06/21/2023 Arterial hypotension 05/14/2022 Alcohol use disorder, severe, dependence 022 Ascites due to alcoholic cirrhosis 04/19/2022 Alcohol use disorder, severe, in sustained remis [place] 09/16/2020 Alcoholic cirrhosis of liver with ascites 2019 Tobacco use 09/16/2020 Encounters Date Type Department Care Team Description 02/09/2025 3:30 PM CDT Office Visit [facility] [place] [address], [place] [address] Kelvin Teran MD Alcoholic cirrhosis of liver with ascites (CMS/HCC) (Primary Dx); Portal hypertension; Hepatic encephalopathy; Alcohol use disorder, severe, in sustained remission 02/09/2025 2:30 PM CDT - 02/09/2025 11:59 PM CDT Hospital Encounter [facility] [address] [place] [address] Kelvin Teran MD Discharge Disposition: Home or Self Care 02/09/2025 Travel from Last 3 Months Family History Medical History Relation Name Comments Alcohol abuse Father Cancer - Stomach Father Cirrhosis Father Relation Name Status Comments Brother Alive Father Mother Alive Social History Tobacco Use Types Packs/Day Years Used Date Smoking Tobacco: Every Day Cigarettes Smokeless Tobacco: Never Tobacco Cessation:Ready to Q uit: Not Asked; Counseling Given: Not Answered Alcohol Use Standard Drinks/Week Comments Not Currently 5 (1 standard drink = 0.6 oz pur e alcohol) July 2023 last drink AUDIT-C Answer Date Recorded Q1: How often do you have a drink containing alcohol? 4 or more times a week 08/22/2023 Q2: How many drinks containi ng alcohol do you have on a typical day when you are drinking? 5 or 6 Q3: How often do you have si x or more drinks on one occasion? Less than monthly 08/22/2023 Overall Financial Resource Strain (CARDIA) Answe r Date Recorded How hard is it for you to pa y for the very basics like food, housing, medical care, and heating? Not hard at all 08/23/2023 [facility] [place] [facility] - Occupational Stress Questionnaire Answer Date Recorded Do you feel stress - tense, restless, nervous, or anxious, or unable to sleep at night because your mind is troubled all the time - these days? Not at all 08/23/2023 Hunger Vital Sign Answer Date Recorded Within the past 12 months, y ou worried that your food would run out before you got the money to buy more. Never true 08/23/20 23 Within the past 12 months, t he food you bought just didn't last and you didn't have money to get more. Never true 08/23/2023 PRAPARE - Transportation Answer Date Re corded In the past 12 months, has l ack of transportation kept you from medical appointments or from getting medications? No 07/27 In the past 12 months, has l ack of transportation kept you from meetings, work, or from getting things needed for daily living? No 08/23/2023 Housing Stability Vital Sign Answer Jayjay e Recorded In the last 12 months, was t here a time when you were not able to pay the mortgage or rent on time? No 08/23/2023 In the last 12 months, how many places have you lived? 1 08/23/2023 In the last 12 months, was t here a time when you did not have a steady place to sleep or slept in a snf (including now)? No 08/23/2023 Sex and Gender Information Value Date Recorded Sex Assigned at Not on file Legal Sex Male 2:26 PM CDT Gender Identity Not on file Sexual Orientation Not on file Last Filed Vital Signs Vital Sign Reading Time Taken Comments Blood Pressure 137/88 02/09/2025 4:02 PM CDT Pulse 85 02/09/2025 4:02 PM CDT Temperature 36.7 C (98.1 F) 02/09/2025 4:02 PM CDT Respiratory Rate 15 08/20/2024 12:26 PM CDT Oxygen Saturation 98% 02/09/2025 4:02 PM CDT Inhaled Oxygen Concentration - - Weight 65.3 kg (144 lb) 02/09/2025 4:02 PM CDT Height 190.5 cm (6' 3 ) 02/09/2025 4:02 PM CDT Body Mass Index 18 02/09/2025 4:02 PM CDT Plan of Treatment Upcoming Encounters Date Type Department Care Team (Late st Contact Info) Description 08/27/2025 12:30 PM CDT Appointment [facility] [address] [place] [phone] Kelvin Teran MD [address] [place] [address] [address] [place] [address] 08/27/2025 1:30 PM CDT Office Visit [facility] [place] [address] [place] [address], [place] [phone] Kelvin Teran MD [address] [place] [address] [address] [place] [address] Health Maintenance Due Date Last Done Comments COLOGUARD (AGES 45-75) - COL ON CA SCREENING 1964 COLON MONITORING 1964 COLONOSCOPY - COLON CA SCREENING 1964 CT COLONOGRAPHY - COLON CA SCREENING 1964 Colorectal Cancer Screening 1964 FIT - COLON CA SCREENING 1964 FLEX SIG - COLON CA SCREENING 1964 LIPID TESTING 1964 HIV SCREENING 1979 HEPATITIS C SCREENING 03/07/1982 DTAP/TDAP/TD VACCINES (1 - Tdap) 1983 PNEUMOCOCCAL VACCINE 50+ (1 of 2 - PCV) 1983 ZOSTER VACCINE (1 of 2) 2014 HEPATITIS B VACCINE (1 of 3 - Risk 3-dose series) 2024 Respiratory Syncytial Virus (RSV) Vaccine Pt: or over 60 yrs (1 - Risk 60-74 years 1-dose series) 2024 COVID-19 VACCINE (3 - 2023-2 5 season) 2024 07/30/2021, 07/09/2021 DEPRESSION SCREENING 11/25/2024 INFLUENZA VACCINE Completed 09/12/2024 HIB VACCINE Aged Out No longer eligi ble based on patient's age to complete this topic HPV VACCINE Aged Out No longer eligi ble based on patient's age to complete this topic MENINGOCOCCAL (Group B) VACCINE SHARED DECISION-MAKING Aged Out No longer eligible based on patient's age to complete this topic MENINGOCOCCAL GROUPS A/C/Y/W VACCINE Aged Out No longer eligible b ased on patient's age to complete this topic Goals Goal Patient Goal Type Associated Problems Recent Progress Patient-Stated? Author Medication Management General On track( 025 4:02 PM CDT) No Suzette Frye, RN Note: Expected end date: ongoing Interventions: Take all medications as prescribed Let your doctor know right away about any changes in your medications Make sure to request a refill of your medication at least one week prior to your last dose Safety General On track( 024 10:12 AM CDT) No Suzette Frye, RN Note: Expected end date: ongoing Interventions: Your nurse will assess your risk for falls/injury each visit Use appropriate and safe transfer methods Be aware of medications that could predispose you to falling Wear non-skid/rubber sole footwear Use some light at night in your room Procedures Procedure Name Priority Date/Time Associated Diagnosis Comments US ABDOMEN LIMITED Routine 02/09/2025 3: 33 PM CDT Alcoholic cirrhosis of liver with ascites (CMS/HCC) Hepatic encephalopathy Severe malnutrition Tobacco use from Last 3 Months Results * US Abdomen Limited (02/09/2025 3:33 PM CDT) Anatomical Region Laterality Modality Abdomen Ultrasound 02/09/2025 3:45 PM CDT Impressions 02/09/2025 5:21 PM CDT Impression: Liver Visualization Score A: No or minimal limitations. US-1 Negative. Repeat surveillance US in 6 months. Cirrhotic morphology of the liver with sequela of portal hypertension. Suggestion of turbulent, bidirectional flow within the main portal vein. Report dictated by Marcus Maynard MD (vice president of consulting services) I, E. Yash Gustafson MD have personally reviewed and interpreted this examination/study. > Interpreting Provider: William Gustafson MD on 02/09/2025 5:21 PM Narrative 02/09/2025 5:21 PM CDT PROCEDURE: US ABDOMEN LIMITED, DATE/TIME OF EXAM: 02/09/2025 3:33 PM, LOCATION [facility] INDICATION: K70.31: Alcoholic cirrhosis of liver with ascites (HCC) K76.82: Hepatic encephalopathy (HCC) E43: Severe malnutrition (HCC) Z72.0: Tobacco use COMPARISON: Ultrasound abdomen dated 07/17/2024 Findings Liver Visualization Score: No or minimal limitations in liver visualization Liver Morphology: The liver has a coarse echotexture and nodular surface. Liver Observations: None. Main Portal Vein: Evaluation of the main portal vein flow is limited. Within the limitations, there is suggestion of turbulent bidirectional flow within the portal vein. Hepatic Veins: Color Doppler evaluation demonstrates patency of the hepatic veins. Bile Ducts: The common bile duct is nondilated, measuring 5 mm. No intrahepatic or extrahepatic biliary dilation. Gallbladder: No gallstones or pericholecystic fluid is seen.. Sonographic Chu's sign is negative. Ascites: Small amount of ascites. Spleen: The spleen measures 9.3 cm in length. Pancreas: The visible pancreas is normal in echogenicity. Right Kidney: The right kidney measures 9.9 cm in length. Limited views of the right kidney reveal no evidence of nephrolithiasis or hydronephrosis. No discrete mass identified. Procedure Note Ale Gustafson MD - 02/09/2025 PROCEDURE: US ABDOMEN LIMITED, DATE/TIME OF EXAM: 02/09/2025 3:33 PM, LOCATION [facility] INDICATION: K70.31: Alcoholic cirrhosis of liver with ascites (HCC) K76.82: Hepatic encephalopathy (HCC) E43: Severe malnutrition (HCC) Z72.0: Tobacco use COMPARISON: Ultrasound abdomen dated 07/17/2024 Findings Liver Visualization Score: No or minimal limitations in liver visualization Liver Morphology: The liver has a coarse echotexture and nodular surface. Liver Observations: None. Main Portal Vein: Evaluation of the main portal vein flow is limited. Within thelimitations, there is suggestion of turbulent bidirectional flow within the portalvein. Hepatic Veins: Color Doppler evaluation demonstrates patency of the hepatic veins. Bile Ducts: The common bile duct is nondilated, measuring 5 mm. No intrahepatic or extrahepatic biliary dilation. Gallbladder: No gallstones or pericholecystic fluid is seen.. Sonographic Chu'ssign is negative. Ascites: Small amount of ascites. Spleen: The spleen measures 9.3 cm in length. Pancreas: The visible pancreas is normal in echogenicity. Right Kidney: The right kidney measures 9.9 cm in length. Limited views of the right kidney reveal no evidence of nephrolithiasis or hydronephrosis. No discrete mass identified. Impression: Liver Visualization Score A: No or minimal limitations. US-1 Negative. Repeat surveillance US in 6 months. Cirrhotic morphology of the liver with sequela of portal hypertension. Suggestion of turbulent, bidirectional flow within the main portal vein. Report dictated by Marcus Maynard MD (vice president of consulting services) William Foster MD have personally reviewed and interpreted this examination/study. > Interpreting Provider: William Gustafson MD on 02/09/2025 5:21 PM us Kelvin Babak Teran MD US ORDERABLES Final Result from Last 3 Months [facility] [address] [place] [phone] [facility] Advance Directives * Full Code (Latest Code Status on File) Date Activated Date Inactivated Comments 08/22/2023 6:10 PM 08/26/2023 6:47 PM * Full Code Date Activated Date Inactivated Comments 04/19/2022 6:09 PM 04/23/2022 1:22 PM Care Teams Transcription Relationship Specialty Start Date End Date Edd Morse DO PCP - General 05/03/20
== END 2025-04-15 10:51 | disposition home or self-care (01) ==
PROVIDERS: PCP Internal Medicine; Visit Provider Internal Medicine
DX: Z12.2 Encounter for screening for malignant neoplasm of respiratory organs (principal); J43.9 Emphysema, unspecified; F17.200 Nicotine dependence, unspecified, uncomplicated; S22.080A Wedge compression fracture of T11-T12 vertebra, initial encounter for closed fracture; S32.010A Wedge compression fracture of first lumbar vertebra, initial encounter for closed fracture; K74.60 Unspecified cirrhosis of liver; X58.XXXA Exposure to other specified factors, initial encounter
CPT/HCPCS: 71271

== ENCOUNTER 2025-05-26 14:06 | Outpatient (CLI) | payer OTHER, SELFPAY ==
--- NOTE | ~2025-05-26 | DEXA_ITS ---
Bone Density Report Name: ABRAHAM GARDNER Age: 60 Sex: Male Ethnicity: White Date of : 1965 Indication: Referring Provider: BHARATI ANGEL Study: Bone densitometry was performed. Exam Date: May 26, 2025 Accession number: [id number] Bone Density: Region BMD T-score Z-score Classification AP Spine(L1-L4) 1.200 1.0 1.6 Normal Femoral Neck (Left) 0.461 -3.4 -2.5 Osteoporosis Total Hip (Left) 0.613 -2.8 -2.3 Osteoporosis Femoral Neck (Right) 0.471 -3.4 -2.4 Osteoporosis Total Hip (Right) 0.588 -2.9 -2.5 Osteoporosis Total Hip Mean 0.601 -2.9 -2.4 Osteoporosis World Health Organization criteria for BMD impression classify patients as: Normal (T-score at or above -1.0), Osteopenia (T-score between -1.0 and -2.5), or Osteoporosis (T-score at or below -2.5). 10-year Fracture Risk: FRAX not reported because: Some T-score for Spine Total or Hip Total or Femoral Neck at or below -2.5 Clinical Information Provided by Patient: Smokes Has 3 or more alcoholic drinks per day Has the following medical conditions: copd Patient maximum height was 75.0 No regular weight bearing exercise Drinks caffeinated beverages Impression: The patient has osteoporosis, based on the Left Femoral Neck T-score. The patient has risk factors, including: smoking, excessive alcohol use. Discussion: HIGH RISK OF FRACTURE. BONE DENSITY IS UNDESIRABLY LOW AT ONE OR MORE SKELETAL SITES, CONSISTENT WITH OSTEOPOROSIS. ALSO, BONE DENSITY IS LOWER THAN EXPECTED FOR AGE, SEX AND RACE AT ONE OR MORE SKELETAL SITES; RECOMMEND A DILIGENT SEARCH FOR SECONDARY CAUSES OF BONE LOSS. This patient's lowest T-score meets the World Health Organization's (WHO) criteria for osteoporosis at one or more sites (T-score -2.5 or below). In untreated patients, the risk of osteoporotic fracture increases approximately two-fold for each 1.0 SD decrease in T-score. Low bone density is not the only risk factor for fracture; also consider factors such as patient's age, frailty or poor health, risk of falling, risk of injury, previous osteoporotic fracture, family history of osteoporosis, cigarette smoking, low body weight, etc. Not everyone with low bone mineral density has osteoporosis; osteomalacia and other metabolic bone disorders should also be considered. Patients who have osteoporosis should be evaluated for specific diseases and conditions (secondary causes) that may cause or contribute to bone loss. The National Osteoporosis Foundation (NOF) recommends pharmacologic intervention for men with BMD at this level (a T-score of -2.5 or below). Also, this patient's bone mineral density is below the range considered normal for healthy age-, sex and race-matched controls at least one site (Z-score -2.0 or below). This warrants careful evaluation for diseases and conditions that may contribute to accelerated bone loss. The patient should follow a healthful lifestyle (good nutrition with adequate calcium and vitamin D, and appropriate weight-bearing exercise). Follow-Up: Consider repeating this study in 2 years to reassess this patient's status, or sooner if there is some new clinical indication. Reported by: FADY on 05/26/2025 2:45:00 PM. Reviewed, dictated and finalized at location A.
--- OUTSIDE RECORDS SUMMARY | 2025-05-26 14:10 | XMS_ITS | Continuity of Care Document ---
Author Organization [facility] Address [address] [place] [address] Phone Care Team Providers Care Compress Machine Operator Name Role Phone Ramon Schultz MD Unavailable Unavailable Procedures Procedure Date Work/medical disability examination JEAN MARIE Advance Directives Directive Yes / No Effective Date File Name No Information Encounters Encounter Description Practice Location Reason(s) For Visit Diagnoses Date Provider Providers Copied on Encounter Work/medical disability examination JEAN MARIE [facility], [address] [place] [address], [id number], tel:[phone] [facility]RODES[facility] 1 Antoine Navarro. [address] [place] [address], [id number] , . tel: [phone] Family History Family Member Type Diagnosis Age At Onset No Information Payers Payer name Insurance type Covered democrat ID Authoriza tiliv(s) [employer] [facility] [id number] Social History Type Description Quantity Date Captured [...]
--- OUTSIDE RECORDS SUMMARY | 2025-05-26 14:10 | XMS_ITS | Clinical Summary ---
Author Organization [facility] [employer] Address [address] [place] [address] Care Team Providers Care Hearing Health Technician Name Role Phone Edd Morse DO Primary Care Provider [phone] Source Comments [facility],non-owned Affiliates and Associated Physician Practices is amultiple site organization consisting of ambulatory clinics and hospital sitesin [place], [place], [place] and [place]. This disclosure is being madepursuant to the Care Everywhere program and may not contain all information available regarding this patient. Last updated 18.[facility] [employer] Allergies Active Allergy Reactions Criticality Noted Date [...] liver with ascites 2019 Tobacco use 09/16/2020 Family History Medical History Relation Name Comments [...] and heating? Not hard at all 08/23/2023 [facility] Occup[facility] - Occupational Stress [...] place to sleep or slept in a intermediate (including now)? No 08/23/2023 Sex and Gender [...] 4:02 PM CDT Height 190.5 cm (6' 3) 02/09/2025 4:02 PM CDT Body Mass Index 18 02/09/2025 4:02 PM CDT Plan of Treatment Upcoming Encounters Date Type Department Care Team (Late st Contact Info) Description 08/27/2025 12:30 PM CDT Appointment [facility] [address] [place] [id number] Kelvin Teran MD [facility] [place] [address] 08/27/2025 1:30 PM CDT Office Visit [facility] [address], [place] [address] Kelvin Teran MD [address] [place] [address] [place] [address] Health Maintenance Due Date Last Done Comments [...] General On track( 024 10:12 AM CDT) Suzette Yanez RN Note: Expected end date: ongoing Interventions: Your nurse will assess your risk for falls/injury each visit Use appropriate and safe transfer methods Be aware of medications that could predispose you to falling Wear non-skid/rubber sole footwear Use some light at night in your room Insurance [facility] Advance Directives * Full Code (Latest Code Status on File) Date Activated Date Inactivated Comments 08/22/2023 6:10 PM 08/26/2023 6:47 PM * Full Code Date Activated Date Inactivated Comments 04/19/2022 6:09 PM 04/23/2022 1:22 PM Care Teams Hearing Health Technician Relationship Specialty Start Date End Date Edd Morse DO PCP - General 05/03/20
== END 2025-05-26 14:07 | disposition home or self-care (01) ==
LOC: ANHIMG 14:08
PROVIDERS: PCP Internal Medicine; Visit Provider Internal Medicine
DX: M81.0 Age-related osteoporosis without current pathological fracture (principal); M85.89 Other specified disorders of bone density and structure, multiple sites; Z87.81 Personal history of (healed) traumatic fracture
CPT/HCPCS: 77080

== ENCOUNTER 2025-08-04 11:11 | Outpatient (CLI) | payer OTHER, SELFPAY ==
--- OUTSIDE RECORDS SUMMARY | 2011-01-09 06:45 | XMS_ITS | Continuity of Care Document ---
Author Organization [facility] Address 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, [address] [place] [address], [id number], tel:[phone] [facility] 1 Antoine Navarro. [address] [place] [address], [id number] , . tel: [phone] Family History Family Member Type Diagnosis Age At Onset No Information Payers Payer name Insurance type Covered constitution party ID Authoriza tiliv(s) [employer] [facility] [id number] Social History Type Description Quantity Date Captured Comments Sex Male Smoking Status No Information Chief Complaint And Reason For Visit No Information Reason For Referral Reason For Referral No Information History Of Present Illness Encounter Date Complaint History Of Prese nt Illness No Information Functional Status Date Functional Assessmen t No Information Instructions Date Instruction Additional Infor mation No Information Assessments Type Assessment Date No Information Patient Care Teams Name Effective Dates (start - stop) Status Members No Information
--- OUTSIDE RECORDS SUMMARY | 2025-08-04 12:10 | XMS_ITS | Clinical Summary ---
Author Organization [facility] [employer] Address [address] [place] [address] Care Team Providers Care Ep Technologist Name Role Phone Edd Morse DO Primary Care Provider [phone] Source Comments [facility],non-owned Affiliates and Associated Physician Practices is amultiple site organization consisting of ambulatory clinics and hospital sitesin [place], [place], [place] and [place]. This disclosure is being madepursuant to the Care Everywhere program and may not contain all information available regarding this patient. Last updated 18.[facility] [employer] Allergies Active Allergy Reactions Criticality Noted Date [...] and heating? Not hard at all 08/23/2023 [facility] of Occupat ional Health - Occupational Stress [...] place to sleep or slept in a usp (including now)? No 08/23/2023 Sex and Gender [...] Info) Description 08/27/2025 12:30 PM CDT Appointment [facility] [address] [place] [phone] Kelvin Teran MD [facility] [place] [address] 08/27/2025 1:30 PM CDT Office Visit [facility] [address] [facility], [place] [address] Kelvin Teran MD [address] [place] [address] [place] [address] Health Maintenance Due Date Last Done Comments [...] - Risk 60-74 years 1-dose series) 2024 DEPRESSION SCREENING 11/25/2024 COVID-19 VACCINE (3 - 2024-2 6 season) 2025 07/30/2021, 07/09/2021 INFLUENZA VACCINE (#1) 2025 09/12/2024 HIB VACCINE Aged Out No longer [...] light at night in your room Insurance [facility] Advance Directives * Full Code (Latest Code Status on File) Date Activated Date Inactivated Comments 08/22/2023 6:10 PM 08/26/2023 6:47 PM * Full Code Date Activated Date Inactivated Comments 04/19/2022 6:09 PM 04/23/2022 1:22 PM Care Teams Ep Technologist Relationship Specialty Start Date End Date Edd Morse DO PCP - General 05/03/20
[2025-08-04 12:51] LABS: Hematocrit 40.5 % (42.0-52.0); Hemoglobin 13.8 g/dL (14.0-18.0); Immature Granulocyte Percent A 0.1 % (0-0.5); Lymphocytes Absolute Auto 2.69 K/mm3 (0.9-3.2); Mean Corpuscular HGB Conc 34.1 g/dl (32-36); Mean Corpuscular Hemoglobin 35.8 pg (26-34); Mean Corpuscular Volume 105.2 fl (80-100); Nucleated Red Blood Cells Absolute Auto 0.000 K/mm3 (0.0-0.012); Nucleated Red Blood Cells Perc 0.0 % (0.0-0.2); Platelet Count Result 225 k/mm3 (150-375); Red Blood Count 3.85 M/mm3 (4.6-6.20); White Blood Count 6.8 K/mm3 (4.5-10.0)
[2025-08-04 13:02] LABS: Alanine Aminotransferase 24 U/L (6-50); Albumin Level 4.0 g/dL (3.5-5.1); Alkaline Phosphatase 200 U/L (38-126); Anion Gap 7 mmol/L (4-12); Aspartate Amino Transferase 92 U/L (17-59); Bilirubin,Total 2.1 mg/dL (0.2-1.3); Blood Urea Nitrogen 14 mg/dL (9-20); Calcium 8.1 mg/dL (8.4-10.2); Carbon Dioxide 30 mmol/L (22-30); Chloride 100 mmol/L (98-107); Estimated Glomerular Filt Rate > 60; Glucose 120 mg/dL (65-110); Potassium 4.7 mmol/L (3.4-5.0); Sodium 137 mmol/L (137-145); Total Protein 7.5 g/dL (6.3-8.2)
[2025-08-04 13:09] LABS: INR 1.2; Prothrombin Time 15.3 Seconds (11.1-14.7)
[2025-08-11 12:08] LABS: Free Testosterone (Direct) 7.9 pg/mL (6.6-18.1)
== END 2025-08-04 11:12 | disposition home or self-care (01) ==
LOC: ANHGOSHLAB 11:14
PROVIDERS: PCP Internal Medicine; Visit Provider Internal Medicine
DX: M81.0 Age-related osteoporosis without current pathological fracture (principal); E55.9 Vitamin D deficiency, unspecified; K70.31 Alcoholic cirrhosis of liver with ascites; K76.6 Portal hypertension; K76.82 Hepatic encephalopathy
CPT/HCPCS: 36415; 80053; 82105; 82306; 84402; 84403; 85025; 85610